=== PATIENT | male | born 1955 | race American Indian/Alaskan Native ===

== ENCOUNTER 2020-06-04 20:34 | Inpatient (IN) | payer MEDICAID ==
[2020-06-04 21:52] LABS: Basophils % (Auto) 0.3 % (0.0-1.8); Hemoglobin 16.6 gm/dl (11.8-15.2); Lymphocytes # (Auto) 0.7 K/mm3 (1.2-5.4); Lymphocytes % (Auto) 5.7 % (13.4-35.0); Mean Corpuscular HGB Conc 34 % (32-34); Mean Corpuscular Volume 91 fl (84-94); Monocytes # (Auto) 0.9 K/mm3 (0.0-0.8); Platelet Count 187 K/mm3 (140-440); Red Blood Count 5.41 M/mm3 (3.65-5.03); Red Cell Distribution Width 14.4 % (13.2-15.2)
[2020-06-04 22:05] LABS: Alanine Aminotransferase 15 units/L (7-56); Albumin 4.1 g/dL (3.9-5); BUN/Creatinine Ratio 12; Blood Urea Nitrogen 14 mg/dL (9-20); Calcium 9.8 mg/dL (8.4-10.2); Hemolysis Index 9
[2020-06-04] MEDS ORDERED: MORPHINE 4 MG/1 ML INJ IV ONE (23:21)
[2020-06-04] MEDS ORDERED: ONDANSETRON 4 MG/2 ML INJ IV ONE (23:21)
--- NOTE | 2020-06-04 23:36 | Emergency Department Report ---
HPI - General Chief Complaint: Abdominal Pain Time Seen by Provider: 06/04/20 22:53 - HPI HPI: 64-year-old male presents to the emergency department via EMS from home with complaint of a 1 day history of right lower quadrant abdominal pain with nausea and vomiting. He has a past medical history of CHF, CVA, hypertension and pulmonary embolism on anticoagulation, Xarelto. Patient took some Tylenol for his symptoms with some transient relief. Patient's abdominal pain worsens when he is going from sitting to standing or when he exerts himself. He denies any fever, diarrhea, constipation, dysuria. No recent travel or sick contacts at home. His primary care physician is a Dr. Cordova at [place]. ED Past Medical Hx - Past Medical History Previous Medical History?: Yes Hx Hypertension: Yes Hx CVA: Yes Hx Congestive Heart Failure: Yes Hx Diabetes: No Additional medical history: Pulmonary Embolism - Surgical History Past Surgical History?: Yes Hx Internal Defibrillator: Yes - Social History Smoking Status: Current Every Day Smoker Substance Use Type: None - Medications Home Medications: Home Medications Medication Instructions Recorded Confirmed Last Taken Type Aspirin [Aspirin BABY CHEW TAB] 81 mg PO QDAY #30 tab.chew 09/14/14 09/29/14 09/28/14 Rx Furosemide [Lasix TAB] 20 mg PO QDAY #30 tablet 09/14/14 09/29/14 09/28/14 Rx carvediloL [Coreg] 3.125 mg PO BID #60 tablet 09/14/14 09/29/14 09/28/14 Rx lisinopriL [Zestril TAB] 2.5 mg PO QDAY #30 tablet 09/14/14 09/29/14 09/28/14 Rx Furosemide [Lasix] 40 mg PO DAILY #60 tablet 09/29/14 Unknown Rx HYDROcodone/APAP 5-325 [[place] 1 each PO Q6HR PRN #20 tablet 10/10/14 Unknown Rx 5-325 mg TAB] Omeprazole [PriLOSEC] 20 mg PO BID #30 cap 10/10/14 Unknown Rx Promethazine [Phenergan] 25 mg PO Q6H PRN #20 tablet 10/10/14 Unknown Rx ED Review of Systems ROS: Stated complaint: ABDOMINAL PAIN Other details as noted in HPI Comment: All other systems reviewed and negative Constitutional: denies: chills, fever Eyes: denies: eye pain, vision change ENT: denies: ear pain, throat pain Respiratory: denies: cough, wheezing Cardiovascular: denies: chest pain, palpitations Gastrointestinal: abdominal pain, nausea, vomiting Genitourinary: denies: dysuria, discharge Musculoskeletal: denies: back pain, arthralgia Skin: denies: rash, lesions Neurological: denies: headache, weakness Physical Exam - Physical Exam Vital Signs: Vital Signs 06/04/20 21:16 Temperature 99.9 F H Pulse Rate 116 H Respiratory 22 Rate Blood Pressure 164/105 O2 Sat by Pulse 93 Oximetry Physical Exam: GENERAL: The patient is well-developed well-nourished. HENT: Normocephalic. Atraumatic. Patient has moist mucous membranes. EYES: Extraocular motions are intact. NECK: Supple. Trachea is midline. CHEST/LUNGS: Clear to auscultation. There is no respiratory distress noted. HEART/CARDIOVASCULAR: Regular. There is no tachycardia. There is no murmur. ABDOMEN: Abdomen is soft. Right lower quadrant abdominal tenderness to palpation. No guarding. Patient has normal bowel sounds. SKIN: Skin is warm and dry. NEURO: The patient is awake, alert, and oriented. The patient is cooperative. Normal speech. MUSCULOSKELETAL: There is no tenderness or deformity. ED Course Vital Signs 06/04/20 21:16 Temperature 99.9 F H Pulse Rate 116 H Respiratory 22 Rate Blood Pressure 164/105 O2 Sat by Pulse 93 Oximetry - Reevaluation(s) Reevaluation #1: 06/05/20 01:10 Lab Results 06/04/20 06/04/20 Range/Units 21:35 21:35 WBC 12.9 H (4.5-11.0) K/mm3 RBC 5.41 H (3.65-5.03) M/mm3 Hgb 16.6 H (11.8-15.2) gm/dl Hct 49.0 H (35.5-45.6) % MCV 91 (84-94) fl MCH 31 (28-32) pg MCHC 34 (32-34) % RDW 14.4 (13.2-15.2) % Plt Count 187 (140-440) K/mm3 Lymph % (Auto) 5.7 L (13.4-35.0) % [place] % (Auto) 7.0 (0.0-7.3) % Eos % (Auto) 0.0 (0.0-4.3) % Baso % (Auto) 0.3 (0.0-1.8) % Lymph # (Auto) 0.7 L (1.2-5.4) K/mm3 [place] # (Auto) 0.9 H (0.0-0.8) K/mm3 Eos # (Auto) 0.0 (0.0-0.4) K/mm3 Baso # (Auto) 0.0 (0.0-0.1) K/mm3 Seg Neutrophils % 87.0 H (40.0-70.0) % Seg Neutrophils # 11.2 H (1.8-7.7) K/mm3 Sodium 135 L (137-145) mmol/L Potassium 4.0 (3.6-5.0) mmol/L Chloride 95.3 L (98-107) mmol/L Carbon Dioxide 29 (22-30) mmol/L Anion Gap 15 mmol/L BUN 14 (9-20) mg/dL Creatinine 1.2 (0.8-1.3) mg/dL Estimated GFR > 60 ml/min BUN/Creatinine Ratio 12 % Glucose 118 H (75-100) mg/dL Calcium 9.8 (8.4-10.2) mg/dL Total Bilirubin 1.10 (0.1-1.2) mg/dL AST 12 (5-40) units/L ALT 15 (7-56) units/L Alkaline Phosphatase 81 (35-129) units/L Total Protein 7.9 (6.3-8.2) g/dL Albumin 4.1 (3.9-5) g/dL Albumin/Globulin Ratio 1.1 % Lipase 16 (13-60) units/L - Consultations Consultation #1: 06/05/20 01:10 I spoke with the general surgeon on-call, Dr. Muñoz, regarding the CT findings of acute appendicitis with signs of mild perforation. We discussed the patient's presentation, labs, vital signs. She has recommended IV fluid resuscitation, antibiotics, and she will see the patient in the morning as a consult. ED Medical Decision Making - Lab Data Result diagrams: 06/04/20 21:35 06/04/20 21:35 - Radiology Data Radiology results: report reviewed CT abdomen pelvis w con INDICATION: RLQ abd pain. TECHNIQUE: All CT scans at this location are performed using the following dose modulation technique: Automated exposure control. Helical slices were obtained through the abdomen and pelvis. 100 cc of Omnipaque 300 is administered. COMPARISON: CT scan dated 10/10/2014 FINDINGS: Abdomen: There is mild atelectasis in the lung bases. The liver, spleen, pancreas, adrenal glands, and left kidney show no acute abnormality. There is a 1.8 cm hypodensity in the upper pole the right kidney. This measures approximately 20 Hounsfield units. There is acute appendicitis. The appendix is inflamed and there is significant periappendiceal inflammation. There is evidence of perforation with a few bubbles of extraluminal gas in the right lower quadrant. There appears to be some secondary inflammation of the distal small bowel. There is fluid noted in the distal small bowel but no discrete obstruction is seen. There is a saccular aneurysm in the infrarenal abdominal aorta. The overall aortic diameter measures up to 3.4 cm. Saccular component measures approximately 2 cm. There is atherosclerotic disease in the aorta and iliac arteries. Pelvis: There are fluid-filled loops of small bowel in the pelvis. There is a small amount of free fluid in the dependent pelvis. This measures above water density. On review of bone windows, no acute osseous abnormalities are seen. IMPRESSION: 1. There is acute perforated appendicitis. No discrete abscess is seen. There is significant inflammation in the right lower quadrant and there are a few bubbles of extraluminal gas in the right lower quadrant. There is a small amount of free fluid in the dependent portion of the pelvis. This measures above water density indicating this represents either blood or other complex fluid. There is a saccular infrarenal abdominal aortic aneurysm. There is a 1.8 cm hypodensity in the right kidney which hugh ures above water density. This could be further evaluated with a nonemergent renal ultrasound. - Medical Decision Making This patient presents with a 1 day history of right lower quadrant abdominal pain, nausea and vomiting. Labs are mostly unremarkable except for a very mild leukocytosis. Patient has a low-grade fever of about 100 F and presents with some mild tachycardia. A CT scan of the abdomen pelvis with IV contrast was done that came back showing acute appendicitis with some mild perforation. There is also some nonspecific small bowel inflammation and fluid within the small bowel, as well as some fluid within the pelvis. General surgery was contacted and consulted. The patient has received IV analgesia, IV antibiotics, IV antiemetics and some IV fluid resuscitation. He will be admitted to the hospital for further evaluation and treatment and has been accepted for admission by the hospitalist, Dr. Todd. - Differential Diagnosis Appendicitis, diverticulitis, colitis, bowel obstruction Critical Care Time: Yes Critical care time in (mins) excluding proc time.: 35 Critical care attestation.: If time is entered above; I have spent that time in minutes in the direct care of this critically ill patient, excluding procedure time. Critical care time was spent on this patient during his initial evaluation, multiple reevaluations, ordering and interpretation of labs and imaging, discussion with the general surgery and hospitalist services, multiple discussions with the patient. Critical Care Time: 35 minutes ED Disposition Clinical Impression: Hypertension Acute appendicitis Qualifiers: Acute appendicitis type: with localized peritonitis Appendicitis gangrene presence: without gangrene Appendicitis perforation presence: with perforation Appendicitis abscess presence: without abscess Qualified Code(s): K35.32 - Acute appendicitis with perforation and localized peritonitis, without abscess Disposition: 09 OP ADMIT IP TO THIS HOSP Is pt being admited?: Yes Condition: Serious Time of Disposition: 00:38
--- NOTE | 2020-06-05 00:05 | Cat Scan Report ---
CT abdomen pelvis w con INDICATION: RLQ abd pain. TECHNIQUE: All CT scans at this location are performed using the following dose modulation technique: Automated exposure control. Helical slices were obtained through the abdomen and pelvis. 100 cc of Omnipaque 30 0 is administered. COMPARISON: CT scan dated 10/10/2014 FINDINGS: Abdomen: There is mild atelectasis in the lung bases. The liver, spleen, pancreas, adrenal glands, an d left kidney show no acute abnormality. There is a 1.8 cm hypodensity in the upper pole the right ki dney. This measures approximately 20 Hounsfield units. There is acute appendicitis. The appendix is inflamed and there is significant periappendiceal inflam mation. There is evidence of perforation with a few bubbles of extraluminal gas in the right lower qu adrant. There appears to be some secondary inflammation of the distal small bowel. There is fluid not ed in the distal small bowel but no discrete obstruction is seen. There is a saccular aneurysm in the infrarenal abdominal aorta. The overall aortic diameter measures up to 3.4 cm. Saccular component measures approximately 2 cm. There is atherosclerotic disease in the aorta and iliac arteries. Pelvis: There are fluid-filled loops of small bowel in the pelvis. There is a small amount of free fl uid in the dependent pelvis. This measures above water density. On review of bone windows, no acute osseous abnormalities are seen. IMPRESSION: 1. There is acute perforated appendicitis. No discrete abscess is seen. There is significant inflamma tion in the right lower quadrant and there are a few bubbles of extraluminal gas in the right lower q uadrant. There is a small amount of free fluid in the dependent portion of the pelvis. This measures above adolfo er density indicating this represents either blood or other complex fluid. There is a saccular infrarenal abdominal aortic aneurysm. There is a 1.8 cm hypodensity in the right kidney which measures above water density. This could be f urther evaluated with a nonemergent renal ultrasound. Signer Name: Seamus Heredia MD Signed: 06/05/2020 12:01 AM Workstation Name: [id number]
[2020-06-05] MEDS ORDERED: PIPERACIL/TAZOBACTA 4.5/NS 100 4.5 GM/100 ML VIAL IV ONE ×2 (00:15→01:11)
[2020-06-05] MEDS ORDERED: metroNIDAZOLE/NS 500 MG/100 ML 500 MG/100 ML BAG IV ONE ×2 (00:15→01:11)
[2020-06-05] MEDS ORDERED: SODIUM CHLORIDE 0.9% 1000 ML 1,000 ML IV ONE (00:26)
[2020-06-05] MEDS ORDERED: SODIUM CHLORIDE 0.9% 1000 ML 1,000 ML ONE (01:11)
--- NOTE | 2020-06-05 01:23 | History and Physical Report ---
History of Present Illness Date of examination: 06/05/20 Date of admission: 06/05/20 00:38 Chief complaint: Abdominal pain Nausea and vomiting History of present illness: 64-year-old male with known history of CHF, hypertension, history of pulmonary embolism and CVA in the past presented to the emergency room today complaining of abdominal pain with associated nausea and vomiting. Symptoms were said to have started within the last 24 hours. Abdominal pain is more in the right lower abdomen. Abdominal pain is said to get worse upon exertion or while standing. He took some acetaminophen without any significant relief. Patient denies any fever or chills, no chest pain or shortness of breath, no diarrhea or constipation, no hematuria or dysuria. Evaluation upon arrival in the emergency room today reveals acute perforated appendicitis on the CT scan of the abdomen and pelvis. General surgeon Dr. Muñoz has been consulted for evaluation. Patient has also been started on empiric IV antibiotics. Past History Past Medical History: heart failure, hypertension, pulmonary embolism, stroke Past Surgical History: Other (Defibrillator Placement) Social history: smoking (Current daily smoker) Family history: no significant family history Medications and Allergies Allergies Allergy/AdvReac Type Severity Reaction Status Date / Time No Known Allergies Allergy Verified 09/11/14 03:17 Home Medications Medication Instructions Recorded Confirmed Last Taken Type Aspirin [Aspirin BABY CHEW TAB] 81 mg PO QDAY #30 tab.chew 09/14/14 09/29/14 09/28/14 Rx Furosemide [Lasix TAB] 20 mg PO QDAY #30 tablet 09/14/14 09/29/14 09/28/14 Rx carvediloL [Coreg] 3.125 mg PO BID #60 tablet 09/14/14 09/29/14 09/28/14 Rx lisinopriL [Zestril TAB] 2.5 mg PO QDAY #30 tablet 09/14/14 09/29/14 09/28/14 Rx Furosemide [Lasix] 40 mg PO DAILY #60 tablet 09/29/14 Unknown Rx HYDROcodone/APAP 5-325 [[place] 1 each PO Q6HR PRN #20 tablet 10/10/14 Unknown Rx 5-325 mg TAB] Omeprazole [PriLOSEC] 20 mg PO BID #30 cap 10/10/14 Unknown Rx Promethazine [Phenergan] 25 mg PO Q6H PRN #20 tablet 10/10/14 Unknown Rx Active Meds: Active Medications Acetaminophen (Tylenol) 650 mg PO Q4H PRN PRN Reason: Pain MILD(1-3)/Fever >100.5/LOPEZ Sodium Chloride (Nacl 0.9% 1000 Ml) 1,000 mls @ 125 mls/hr IV ONCE ONE Stop: 06/05/20 08:25 Last Admin: 06/05/20 01:15 Dose: 125 mls/hr Documented by: Sodium Chloride (Nacl 0.9% 1000 Ml) 1,000 mls @ 75 mls/hr IV DIRECT BART Morphine Sulfate (Morphine) 2 mg IV Q4H PRN PRN Reason: Pain, Moderate (4-6) Ondansetron HCl (Zofran) 4 mg IV Q8H PRN PRN Reason: Nausea And Vomiting Sodium Chloride (Sodium Chloride Flush Syringe 10 Ml) 10 ml IV BID BART Sodium Chloride (Sodium Chloride Flush Syringe 10 Ml) 10 ml IV PRN PRN PRN Reason: LINE FLUSH Review of Systems Constitutional: no fever, no chills Ears, nose, mouth and throat: no nasal congestion, no sore throat Cardiovascular: no chest pain, no palpitations Respiratory: no cough, no shortness of breath Gastrointestinal: abdominal pain, nausea, vomiting, no hematemesis, no BRBPR, no melena Genitourinary Male: no dysuria, no hematuria, no nocturia Musculoskeletal: no neck pain, no low back pain Integumentary: no rash, no pruritis Neurological: no headaches, no confusion Psychiatric: no anxiety, no depression Exam - Constitutional Vitals: Temp Pulse Resp BP Pulse Ox 98.8 F 111 H 17 169/91 97 06/04/20 23:20 06/05/20 00:31 06/05/20 00:31 06/05/20 00:31 06/05/20 00:31 General appearance: Present: no acute distress, well-nourished - EENT Eyes: Present: PERRL, EOM intact. Absent: scleral icterus ENT: hearing intact, clear oral mucosa, dentition normal - Neck Neck: Present: supple, normal ROM - Respiratory Respiratory effort: normal Respiratory: bilateral: CTA - Cardiovascular Rhythm: regular Heart Sounds: Present: S1 & S2. Absent: gallop, systolic murmur, diastolic murmur, rub - Extremities Extremities: no ischemia, pulses intact, pulses symmetrical, No edema, Full ROM Peripheral Pulses: within normal limits - Abdominal General gastrointestinal: Present: soft, tender (Right lower quadrant, no rebound tenderness, No guarding), non-distended, normal bowel sounds. Absent: mass - Integumentary Integumentary: Present: clear, warm, dry - Musculoskeletal Musculoskeletal: strength equal bilaterally - Psychiatric Psychiatric: appropriate mood/affect, intact judgment & insight, memory intact, cooperative - Neurologic Neurologic: CNII-XII intact, no focal deficits, moves all extremities Results - Labs CBC & Chem 7: 06/04/20 21:35 06/04/20 21:35 Labs: Abnormal lab results 06/04/20 06/04/20 Range/Units 21:35 21:35 WBC 12.9 H (4.5-11.0) K/mm3 RBC 5.41 H (3.65-5.03) M/mm3 Hgb 16.6 H (11.8-15.2) gm/dl Hct 49.0 H (35.5-45.6) % Lymph % (Auto) 5.7 L (13.4-35.0) % Lymph # (Auto) 0.7 L (1.2-5.4) K/mm3 [place] # (Auto) 0.9 H (0.0-0.8) K/mm3 Seg Neutrophils % 87.0 H (40.0-70.0) % Seg Neutrophils # 11.2 H (1.8-7.7) K/mm3 Sodium 135 L (137-145) mmol/L Chloride 95.3 L (98-107) mmol/L Glucose 118 H (75-100) mg/dL Assessment and Plan - Patient Problems (1) Acute appendicitis Current Visit: Yes Status: Acute Qualifiers: Acute appendicitis type: with localized peritonitis Appendicitis gangrene presence: without gangrene Appendicitis perforation presence: with perforation Appendicitis abscess presence: without abscess Qualified Code(s): K35.32 - Acute appendicitis with perforation and localized peritonitis, without abscess Plan to address problem: Patient made n.p.o. He has been started on empiric IV antibiotics, IV fluid and IV analgesic medication. (2) Hypertension Current Visit: Yes Status: Acute Plan to address problem: We will place patient on IV antihypertensive medication as needed. We will monitor vital signs closely. (3) Tobacco use Current Visit: No Status: Chronic Plan to address problem: Patient counseled on quitting tobacco abuse. We offer nicotine patch as needed. (4) DVT prophylaxis Current Visit: Yes Status: Acute Plan to address problem: Patient placed on sequential compression device. (5) Full code status Current Visit: Yes Status: Acute
[2020-06-05 02:18] LABS: Bilirubin,Urine NEG (Negative); Blood,Urine MOD (Negative); Color,Urine Yellow (Yellow); Mucus,Urine 1+ /HPF
[2020-06-05] MEDS: SODIUM CHLORIDE 0.9% 1000 ML 1,000 ML IV SCH ×2 (04:34→14:18)
[2020-06-05] MEDS: ACETAMINOPHEN 325 MG TAB PO PRN ×2 (05:49→22:09)
--- NOTE | 2020-06-05 10:05 | Progress Note ---
Assessment and Plan - Patient Problems (1) Acute appendicitis Current Visit: Yes Status: Acute Qualifiers: Acute appendicitis type: with localized peritonitis Appendicitis gangrene presence: without gangrene Appendicitis perforation presence: with perforation Appendicitis abscess presence: without abscess Qualified Code(s): K35.32 - Acute appendicitis with perforation and localized peritonitis, without abscess Plan to address problem: Patient made n.p.o. CT findings of acute appendicitis with signs of mild perforation. Continue empiric IV antibiotics, IV fluid and IV analgesic medication. general surgeon Dr. Muñoz consulted (2) Hypertension Current Visit: Yes Status: Acute Plan to address problem: Monitor blood pressure IV antihypertensive medication as needed. (3) Tobacco use Current Visit: No Status: Chronic Plan to address problem: Patient counseled on quitting tobacco abuse. nicotine patch daily. (4) DVT prophylaxis Current Visit: Yes Status: Acute Plan to address problem: Patient placed on sequential compression device. 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 he report right lower quadrant pain 9/10. He also admit tobacco use 1/ park every 2 days for over 50 years reviewed lab, mar, and v/s. reviewed specialist note and reces-surgery tomorrow Objective - Constitutional Vitals: Vital Signs - 12hr 06/04/20 06/04/20 06/05/20 23:20 23:57 00:01 Temperature 98.8 F Pulse Rate 116 H 108 H Respiratory 18 18 16 Rate Blood Pressure 163/90 Blood Pressure 148/93 [Left] Blood Pressure [Right] O2 Sat by Pulse 96 98 Oximetry 06/05/20 06/05/20 06/05/20 00:15 00:27 00:31 Temperature Pulse Rate 108 H 111 H Respiratory 23 18 17 Rate Blood Pressure 152/94 169/91 Blood Pressure [Left] Blood Pressure [Right] O2 Sat by Pulse 96 97 Oximetry 06/05/20 06/05/20 06/05/20 01:31 01:41 01:51 Temperature Pulse Rate 113 H 109 H 118 H Respiratory 28 H 36 H 21 Rate Blood Pressure 143/81 145/79 145/79 Blood Pressure [Left] Blood Pressure [Right] O2 Sat by Pulse 96 94 85 Oximetry 06/05/20 06/05/20 06/05/20 02:01 02:11 02:33 Temperature 99.1 F Pulse Rate 109 H 110 H 107 H Respiratory 30 H 10 L 20 Rate Blood Pressure 133/71 139/75 Blood Pressure [Left] Blood Pressure 137/81 [Right] O2 Sat by Pulse 78 L 79 L 100 Oximetry 06/05/20 06/05/20 06/05/20 03:45 05:32 05:49 Temperature 100.2 F H Pulse Rate 105 H Respiratory 20 20 20 Rate Blood Pressure Blood Pressure [Left] Blood Pressure 117/82 [Right] O2 Sat by Pulse 95 Oximetry 06/05/20 07:42 Temperature 99.1 F Pulse Rate 115 H Respiratory 18 Rate Blood Pressure 116/76 Blood Pressure [Left] Blood Pressure [Right] O2 Sat by Pulse 92 Oximetry - Labs CBC & Chem 7: 06/04/20 21:35 06/04/20 21:35 Labs: Abnormal lab results 06/04/20 06/04/20 06/05/20 Range/Units 21:35 21:35 02:00 WBC 12.9 H (4.5-11.0) K/mm3 RBC 5.41 H (3.65-5.03) M/mm3 Hgb 16.6 H (11.8-15.2) gm/dl Hct 49.0 H (35.5-45.6) % Lymph % (Auto) 5.7 L (13.4-35.0) % Lymph # (Auto) 0.7 L (1.2-5.4) K/mm3 [place] # (Auto) 0.9 H (0.0-0.8) K/mm3 Seg Neutrophils % 87.0 H (40.0-70.0) % Seg Neutrophils # 11.2 H (1.8-7.7) K/mm3 Sodium 135 L (137-145) mmol/L Chloride 95.3 L (98-107) mmol/L Glucose 118 H (75-100) mg/dL Ur Specific [place] > 1.059 H (1.003-1.030)
--- NOTE | 2020-06-05 10:24 | Consultation ---
History of Present Illness Consult date: 06/05/20 Reason for consult: abdominal pain Chief complaint: Abdominal pain - History of present illness History of present illness: 64-year-old male with past medical history of hypertension, CHF, recent diagnosi s of PE 3 months ago on Xarelto who presents to the emergency room with 2 days of right lower quadrant abdominal pain. The pain started suddenly and then increased in severity. The pain is sharp and does not radiate. Patient admits to nausea and vomiting, which is since resolved. He denies fevers at home but did have Tm of 100.2 after being admitted to the hospital. He has had similar pain in the past which he attributes to his back but this usually resolves on its own. No sick contacts. No inciting events. He states he had a follow-up appointment at [place] yesterday to repeat lab work and determine how long he would be on Xarelto. Due to the abdominal pain he was unable to make that appointment. His last dose of Xarelto was yesterday morning. He is feeling slightly better now. He states the pain is made better with pain medications. He is asking for something to eat or drink. Past History Past Medical History: heart failure, hypertension, pulmonary embolism, stroke Past Surgical History: Other (Defibrillator Placement) Social history: smoking (Current daily smoker) Family history: no significant family history Medications and Allergies Allergies Allergy/AdvReac Type Severity Reaction Status Date / Time No Known Allergies Allergy Verified 09/11/14 03:17 Home Medications Medication Instructions Recorded Confirmed Last Taken Type Aspirin [Aspirin BABY CHEW TAB] 81 mg PO QDAY #30 tab.chew 09/14/14 09/29/14 09/28/14 Rx Furosemide [Lasix TAB] 20 mg PO QDAY #30 tablet 09/14/14 09/29/14 09/28/14 Rx carvediloL [Coreg] 3.125 mg PO BID #60 tablet 09/14/14 09/29/14 09/28/14 Rx lisinopriL [Zestril TAB] 2.5 mg PO QDAY #30 tablet 09/14/14 09/29/14 09/28/14 Rx Furosemide [Lasix] 40 mg PO DAILY #60 tablet 09/29/14 Unknown Rx HYDROcodone/APAP 5-325 [[place]man 1 each PO Q6HR PRN #20 tablet 10/10/14 Unknown Rx 5-325 mg TAB] Omeprazole [PriLOSEC] 20 mg PO BID #30 cap 10/10/14 Unknown Rx Promethazine [Phenergan] 25 mg PO Q6H PRN #20 tablet 10/10/14 Unknown Rx Active Meds: Active Medications Acetaminophen (Tylenol) 650 mg PO Q4H PRN PRN Reason: Pain MILD(1-3)/Fever >100.5/LOPEZ Last Admin: 06/05/20 05:49 Dose: 650 mg Documented by: Sodium Chloride (Nacl 0.9% 1000 Ml) 1,000 mls @ 75 mls/hr IV DIRECT BART Last Admin: 06/05/20 04:34 Dose: 75 mls/hr Documented by: Piperacillin Sod/Tazobactam Sod (Zosyn/Ns 4.5gm/100ml) 4.5 gm in 100 mls @ 200 mls/hr IV Q8HR BART; Protocol Metronidazole (Flagyl 500 Mg/100 Ml) 500 mg in 100 mls @ 100 mls/hr IV Q8HR BART; Protocol Stop: 06/06/20 13:59 Morphine Sulfate (Morphine) 2 mg IV Q4H PRN PRN Reason: Pain, Moderate (4-6) Ondansetron HCl (Zofran) 4 mg IV Q8H PRN PRN Reason: Nausea And Vomiting Sodium Chloride (Sodium Chloride Flush Syringe 10 Ml) 10 ml IV BID BART Sodium Chloride (Sodium Chloride Flush Syringe 10 Ml) 10 ml IV PRN PRN PRN Reason: LINE FLUSH Review of Systems All systems: negative (10 point ROS performed and negative except for that listed in HPI) Exam Vital Signs Temp Pulse Resp BP Pulse Ox 99.9 F H 116 H 22 164/105 93 06/04/20 21:16 06/04/20 21:16 06/04/20 21:16 06/04/20 21:16 06/04/20 21:16 Narrative exam: Gen.: Awake, alert, oriented 3. Mild distress due to abdominal pain ENT: Trachea midline. No lymphadenopathy. No scleral icterus or conjunctival pallor CV: S1, S2 present. Left-sided AICD Respiratory: No audible wheezes Abdomen: Soft, nondistended, mild tenderness to palpation of the right lower quadrant. No rebound, rigidity, guarding Extremities: No clubbing, cyanosis, edema Results - Labs 06/04/20 21:35 06/04/20 21:35 Abnormal lab results 06/04/20 06/04/20 06/05/20 Range/Units 21:35 21:35 02:00 WBC 12.9 H (4.5-11.0) K/mm3 RBC 5.41 H (3.65-5.03) M/mm3 Hgb 16.6 H (11.8-15.2) gm/dl Hct 49.0 H (35.5-45.6) % Lymph % (Auto) 5.7 L (13.4-35.0) % Lymph # (Auto) 0.7 L (1.2-5.4) K/mm3 Mobile # (Auto) 0.9 H (0.0-0.8) K/mm3 Seg Neutrophils % 87.0 H (40.0-70.0) % Seg Neutrophils # 11.2 H (1.8-7.7) K/mm3 Sodium 135 L (137-145) mmol/L Chloride 95.3 L (98-107) mmol/L Glucose 118 H (75-100) mg/dL Ur Specific [place] > 1.059 H (1.003-1.030) Diabetes panel 06/04/20 Range/Units 21:35 Sodium 135 L (137-145) mmol/L Potassium 4.0 (3.6-5.0) mmol/L Chloride 95.3 L (98-107) mmol/L Carbon Dioxide 29 (22-30) mmol/L BUN 14 (9-20) mg/dL Creatinine 1.2 (0.8-1.3) mg/dL Glucose 118 H (75-100) mg/dL Calcium 9.8 (8.4-10.2) mg/dL AST 12 (5-40) units/L ALT 15 (7-56) units/L Alkaline Phosphatase 81 (35-129) units/L Total Protein 7.9 (6.3-8.2) g/dL Albumin 4.1 (3.9-5) g/dL Calcium panel 06/04/20 Range/Units 21:35 Calcium 9.8 (8.4-10.2) mg/dL Albumin 4.1 (3.9-5) g/dL Pituitary panel 06/04/20 Range/Units 21:35 Sodium 135 L (137-145) mmol/L Potassium 4.0 (3.6-5.0) mmol/L Chloride 95.3 L (98-107) mmol/L Carbon Dioxide 29 (22-30) mmol/L BUN 14 (9-20) mg/dL Creatinine 1.2 (0.8-1.3) mg/dL Glucose 118 H (75-100) mg/dL Calcium 9.8 (8.4-10.2) mg/dL Adrenal panel 06/04/20 Range/Units 21:35 Sodium 135 L (137-145) mmol/L Potassium 4.0 (3.6-5.0) mmol/L Chloride 95.3 L (98-107) mmol/L Carbon Dioxide 29 (22-30) mmol/L BUN 14 (9-20) mg/dL Creatinine 1.2 (0.8-1.3) mg/dL Glucose 118 H (75-100) mg/dL Calcium 9.8 (8.4-10.2) mg/dL Total Bilirubin 1.10 (0.1-1.2) mg/dL AST 12 (5-40) units/L ALT 15 (7-56) units/L Alkaline Phosphatase 81 (35-129) units/L Total Protein 7.9 (6.3-8.2) g/dL Albumin 4.1 (3.9-5) g/dL - Imaging CT scan - abdomen: report reviewed, image reviewed CT scan - pelvis: report reviewed, image reviewed Assessment and Plan 64-year-old male with 1. acute appendicitis, without abscess CT scan reviewed -acute appendicitis with likely microperforation but no evidence of abscess. Likely developing ileus. Pt hemodynamically stable. Plan: 1. Hold xaretlo -last dose was 24 hours ago. I highly recommend holding for another 24 hours to decrease the patient's risk of bleeding during surgery. 2. May have sips of clears today, n.p.o. past midnight tonight 3. Recommend cardiology consult 4. Continue IV antibiotics 5. PRN pain and nausea control 6. DVT prophylaxis 7. I have discussed appendectomy with the patient. All risk, benefits, alternatives to surgery were discussed. I also discussed the high risk of bleeding during and after surgery due to the effects of Xarelto. I explained to the patient there is no reversal agent available to us at this facility and that I recommend waiting another 24 hours prior to proceeding with surgery. He is agreeable and understands. All questions were answered. Consent obtained for laparoscopic appendectomy, possible open, possible colon resection. Will add to the OR schedule for tomorrow. I spoke with the patient's daughter Yashira and sister Angelina at his request over the telephone. I explained the diagnosis along with my recommendations to them. They understand and all questions were answered. Thank you for this consultation. Please call with any questions or concerns. Evaluation and treatment of this patient was during the time of the national and state emergency arising from COVID19 coronavirus pandemic. Treatment and procedures performed meet the current and available best practice and guidelines for patient during the COVID pandemic.
[2020-06-05] MEDS: MORPHINE 2 MG/1 ML INJ IV PRN ×4 (10:30→22:11)
[2020-06-05] MEDS: ONDANSETRON 4 MG/2 ML INJ IV PRN ×3 (10:30→22:11)
--- NOTE | 2020-06-05 10:39 | Anesthesia Consultation ---
Anesthesia Consult and Med Hx Date of service: 06/05/20 - Airway Anesthetic Teeth Evaluation: Edentulous ROM Head & Neck: Adequate Mental/Hyoid Distance: Adequate Mallampati Class: Class II Intubation Access Assessment: Probably Good - Pulmonary Exam CTA: Yes - Pre-Operative Health Status ASA Pre-Surgery Classification: ASA3, Emergency Proposed Anesthetic Plan: General - Pulmonary Hx Smoking: Yes (Half a pack a day (from 1ppd)) Hx Respiratory Symptoms: No SOB: No COPD: No Home Oxygen Therapy: No Hx Pneumonia: Yes Hx Sleep Apnea: No - Cardiovascular System Hx Hypertension: Yes Hx Heart Attack/AMI: No Hx Angina: No Hx Internal Defibrillator: Yes - Central Nervous System Hx Seizures: No CVA: Yes (2017) Hx Psychiatric Problems: No - Gastrointestinal Hx Ulcer: No Hx Gastroesophageal Reflux Disease: No - Endocrine Hx Renal Disease: No Hx Liver Disease: No Hx Insulin Dependent Diabetes: No Hx Non-Insulin Dependent Diabetes: No Hx Thyroid Disease: No - Hematic Hx Anemia: No - Other Systems Hx Alcohol Use: No Hx Substance Use: No Hx Cancer: No Hx Obesity: Yes (BMI- 34.3kg) - Additional Comments Anesthesia Medical History Comments: Patient denied previous anesthesia complications and labs within normal range.
[2020-06-05] MEDS: LISINOPRIL 10 MG TAB PO SCH (14:11)
[2020-06-05] MEDS: PIPERACIL/TAZOBACTA 4.5/NS 100 4.5 GM/100 ML VIAL IV SCH ×2 (14:11→22:23)
--- NOTE | 2020-06-05 14:32 | Consultation ---
CARDIOLOGY CONSULTATION HISTORY OF PRESENT ILLNESS: The patient is a 64-year-old, -[place] gentleman who presented to the Emergency Room at [facility] on 06/04/2020 because of right lower quadrant abdominal pain. He is having complaints of loss of appetite and nausea and vomiting of few days' duration. He had sudden onset of pain, was evaluated in the Emergency Room and a diagnosis of possible acute appendicitis with localized peritonitis was done. The patient was seen by Dr. Muñoz, diagnosis was acute appendicitis without abscess and she is planning to do surgery on 06/06/2020. The patient's past medical history is significant for history of stroke 4 years ago with right-sided weakness, which got better. At the same time, he was diagnosed to have essential hypertension. Subsequently, he is being followed by phonograph mechanic at [facility] with a diagnosis of congestive heart failure and he had ICD inserted a few years ago. Denies any history of diabetes mellitus. Also, gives history of having a pulmonary embolus 3 months ago, was started on Xarelto. The patient denies any history of myocardial infarction in the past. Presently, denies any chest pain. He claims that he walks 4-5 miles every day without any problems. He is taking his medications without any problems. Denies any orthopnea, no leg swelling. No chest pain. MEDICATIONS: At home included aspirin 81 mg a day, furosemide 20 mg a day, carvedilol 3.125 mg b.i.d., lisinopril 2.5 mg once a day, furosemide 40 mg a day. In addition, he is taking Prilosec and Phenergan. ALLERGIES: None known. REVIEW OF SYSTEMS: As mentioned above, denies any leg swelling, no orthopnea, no PND. He is having loss of appetite and abdominal pain of few days' duration, has some nausea. He is taking his medications including Xarelto. No unusual headaches. No history of asthma. As mentioned above, has history of pulmonary emboli a few months ago, presently on Xarelto. He says he had fever just last night. PHYSICAL EXAMINATION: GENERAL: The patient appears to be comfortable, well-developed, well-nourished. HEENT: Conjunctivae pink. Sclerae anicteric. NECK: Supple. HEART: Regular, probably S4, no S3, no significant murmurs. LUNGS: Clear. ABDOMEN: Tender. EXTREMITIES: Without edema. NEUROLOGIC: Alert and oriented x 3. CHEST: The patient has ICD in his chest. LABORATORY DATA: Other laboratory data showed potassium of 4.0, BUN of 14, creatinine of 1.2, hemoglobin of 16.6 g/dL, hematocrit of 49%. Telemetry rhythm showed sinus rhythm. We do not have the EKG. FINAL IMPRESSION: 1. Acute appendicitis without abscess. 2. History of congestive heart failure, history of ICD placement. 3. History of pulmonary emboli, on Xarelto. 4. History of hypertension. 5. History of right-sided weakness 3-4 years ago, presently resolved. PLAN: Presently, cardiac morales appears to be stable. No symptoms of fluid overload. No anginal symptoms. Considering that he appears to be cardiac morales stable, we will get an echocardiogram for LV function in addition to an EKG. We will try to get the records from [facility]. However, he appears to be stable. He can proceed with the surgery in the morning. I resumed his carvedilol and lisinopril. We will hold his furosemide considering he is not eating much. Thank you very much Dr. Muñoz for asking us to see the patient. JOB# [id number] KYLE/GERARD
[2020-06-05] MEDS: metroNIDAZOLE/NS 500 MG/100 ML 500 MG/100 ML BAG IV SCH ×2 (14:45→22:07)
[2020-06-05] MEDS: carvediloL 12.5 MG TAB PO SCH (22:08)
[2020-06-06] MEDS: MORPHINE 2 MG/1 ML INJ IV PRN ×3 (02:10→21:52)
[2020-06-06] MEDS ORDERED: SODIUM CHLORIDE 0.9% 250ML 250 ML IV ONE (02:27)
[2020-06-06] MEDS ORDERED: KETOROLAC 30 MG/1 ML INJ IV ONE (02:50)
[2020-06-06 05:09] LABS: Basophils % (Auto) 0.1 % (0.0-1.8); Hematocrit 42.8 % (35.5-45.6); Hemoglobin 14.6 gm/dl (11.8-15.2); Lymphocytes # (Auto) 0.6 K/mm3 (1.2-5.4); Lymphocytes % (Auto) 5.4 % (13.4-35.0); Mean Corpuscular HGB Conc 34 % (32-34); Mean Corpuscular Volume 91 fl (84-94); Monocytes % (Auto) 9.9 % (0.0-7.3); Platelet Count 137 K/mm3 (140-440); Red Cell Distribution Width 14.6 % (13.2-15.2)
[2020-06-06 05:18] LABS: INR 1.5 (0.87-1.13)
[2020-06-06 05:24] LABS: Calcium 8.9 mg/dL (8.4-10.2)
--- NOTE | 2020-06-06 09:17 | Progress Note ---
Assessment and Plan - Patient Problems (1) Acute appendicitis Current Visit: Yes Status: Acute Qualifiers: Acute appendicitis type: with localized peritonitis Appendicitis gangrene presence: without gangrene Appendicitis perforation presence: with perforation Appendicitis abscess presence: without abscess Qualified Code(s): K35.32 - Acute appendicitis with perforation and localized peritonitis, without abscess Plan to address problem: Patient n.p.o. for appendectomy today CT findings of acute appendicitis with signs of mild perforation. Continue empiric IV antibiotics, IV fluid and IV analgesic medication. general surgeon Dr. Muñoz following (2) Hypertension-controlled Current Visit: Yes Status: Acute Plan to address problem: Monitor blood pressure continue antihypertensive medication. (3) Tobacco use Current Visit: No Status: Chronic Plan to address problem: Patient counseled on quitting tobacco abuse. nicotine patch daily. (4) DVT prophylaxis Current Visit: Yes Status: Acute Plan to address problem: Patient placed on sequential compression device. (5) Full code status Current Visit: Yes Status: Acute Patient scheduled for Appendectomy today - Patient Problems (1) Leukocytosis (leucocytosis) Current Visit: Yes Status: Acute Plan to address problem: Elevated WBC and fever likely 2/2 to appendicitis-resolved Continue empiric abx and monitor temp and WBC Blood culture-f/u with result General surgeon consulted (2) CHF (congestive heart failure) Current Visit: No Status: Acute Plan to address problem: patient has history of CHF and pulmonary embolism On xerolto Xerolto on hold for surgery tomorrow Consult band presser (3) SAMUEL (acute kidney injury) Current Visit: Yes Status: Acute Plan to address problem: Cr 1.7 ? cause Monitor Kidney function Continue IV hydration Advised to avoid nephrotoxic agents like ibuprofen CBC and BMP in am Subjective Date of service: 06/06/20 Principal diagnosis: appendicitis Interval history: Patient is for surgery today-appendectomy reviewed lab, mar, and v/s. reviewed specialist note and reces- Objective - Constitutional Vitals: Vital Signs - 12hr 06/05/20 06/05/20 06/05/20 22:08 22:09 22:11 Temperature Pulse Rate 97 H Respiratory 20 20 Rate Blood Pressure 122/78 O2 Sat by Pulse Oximetry 06/05/20 06/05/20 06/06/20 22:41 23:45 02:10 Temperature 100.1 F H Pulse Rate 110 H Respiratory 18 20 20 Rate Blood Pressure 110/78 O2 Sat by Pulse 93 Oximetry 06/06/20 06/06/20 06/06/20 02:55 04:26 08:06 Temperature 98.9 F 97.5 F L Pulse Rate 101 H 93 H Respiratory 20 18 18 Rate Blood Pressure 106/68 83/58 O2 Sat by Pulse 92 94 Oximetry 06/06/20 08:31 Temperature Pulse Rate Respiratory Rate Blood Pressure O2 Sat by Pulse 93 Oximetry General appearance: Present: no acute distress, well-nourished - EENT Eyes: PERRL, EOM intact ENT: hearing intact, clear oral mucosa Ears: bilateral: normal - Neck Neck: supple, normal ROM - Respiratory Respiratory effort: normal Respiratory: bilateral: CTA, diminished - Breasts Breasts: normal - Cardiovascular Heart rate: 76 Rhythm: regular Heart Sounds: Present: S1 & S2. Absent: gallop, rub Extremities: pulses intact, No edema, normal color, Full ROM - Gastrointestinal General gastrointestinal: Present: tender, normal bowel sounds Localized gastrointestinal: tender: RLQ - Genitourinary Male genitourinary: normal - Integumentary Integumentary: clear, warm, dry - Musculoskeletal Musculoskeletal: 1, strength equal bilaterally - Neurologic Neurologic: moves all extremities - Psychiatric Psychiatric: memory intact, appropriate mood/affect, intact judgment & insight - Allied health notes Allied health notes reviewed: nursing - Labs CBC & Chem 7: 06/06/20 04:43 06/06/20 04:43 Labs: Abnormal lab results 06/06/20 06/06/20 06/06/20 Range/Units 04:43 04:43 04:43 Plt Count 137 L (140-440) K/mm3 Lymph % (Auto) 5.4 L (13.4-35.0) % Wilson % (Auto) 9.9 H (0.0-7.3) % Lymph # (Auto) 0.6 L (1.2-5.4) K/mm3 [place] # (Auto) 1.0 H (0.0-0.8) K/mm3 Seg Neutrophils % 84.6 H (40.0-70.0) % Seg Neutrophils # 8.7 H (1.8-7.7) K/mm3 PT 18.4 H (12.2-14.9) Sec. INR 1.50 H (0.87-1.13) Creatinine 1.7 H (0.8-1.3) mg/dL Glucose 126 H (75-100) mg/dL
[2020-06-06] MEDS: carvediloL 12.5 MG TAB PO SCH ×2 (10:00→23:29)
[2020-06-06] MEDS: ONDANSETRON 4 MG/2 ML INJ IV PRN (10:16)
--- NOTE | 2020-06-06 10:18 | Anesthesia Consultation ---
Anesthesia Consult and Med Hx Date of service: 06/06/20 - Airway Anesthetic Teeth Evaluation: Edentulous ROM Head & Neck: Adequate Mental/Hyoid Distance: Adequate Mallampati Class: Class II Intubation Access Assessment: Probably Good - Pre-Operative Health Status ASA Pre-Surgery Classification: ASA3, Emergency Proposed Anesthetic Plan: General - Pulmonary Hx Smoking: Yes (Half a pack a day (from 1ppd)) Hx Asthma: No Hx Respiratory Symptoms: No SOB: No COPD: No Home Oxygen Therapy: No Hx Pneumonia: Yes Hx Sleep Apnea: No - Cardiovascular System Hx Hypertension: Yes Hx Heart Attack/AMI: No Hx Angina: No Hx Internal Defibrillator: Yes - Central Nervous System Hx Seizures: No CVA: Yes (2017) Hx Psychiatric Problems: No - Gastrointestinal Hx Ulcer: No Hx Gastroesophageal Reflux Disease: No - Endocrine Hx Renal Disease: No Hx End Stage Renal Disease: No Hx Liver Disease: No Hx Insulin Dependent Diabetes: No Hx Non-Insulin Dependent Diabetes: No Hx Thyroid Disease: No - Hematic Hx Anemia: No - Other Systems Hx Alcohol Use: No Hx Substance Use: No Hx Cancer: No Hx Obesity: Yes (BMI- 34.3kg) - Additional Comments Anesthesia Medical History Comments: Patient denied previous anesthesia complications
--- NOTE | 2020-06-06 10:19 | Anesthesia Day of Surgery ---
Anesthesia Day of Surgery - Day of Surgery Patient Examined: Yes Patient H&P Reviewed: Yes Patient is NPO: Yes
[2020-06-06] MEDS ORDERED: BUPIVACAINE/PF (0.25%) 2.5 MG/ML 30 ML VIAL INFILTRATI ONE (10:22)
[2020-06-06] MEDS ORDERED: LIDOCAINE (1%) 10 MG/1 ML VIAL 20 ML MDV ONE (10:22)
[2020-06-06] MEDS ORDERED: ePHEDrine SULFATE 50 MG/1 ML INJ ONE (10:34)
[2020-06-06] MEDS ORDERED: NEOSTIGMINE 10MG/10 ML INJ MDV ONE (11:15)
[2020-06-06] MEDS ORDERED: SUCCINYLCHOLINE CHLORIDE 200 MG/10 ML INJ MDV ONE (11:15)
[2020-06-06] MEDS ORDERED: LIDOCAINE MPF (2%) 20 MG/1 ML VIAL 5 ML ONE (11:15)
[2020-06-06] MEDS ORDERED: fentaNYL 100 MCG/2 ML INJ ONE (11:15)
[2020-06-06] MEDS ORDERED: ROCURONIUM 50 MG/5 ML INJ IV ONE (11:15)
[2020-06-06] MEDS ORDERED: ONDANSETRON 4 MG/2 ML INJ ONE (11:15)
[2020-06-06] MEDS ORDERED: dexAMETHasone 20 MG/5 ML VIAL ONE (11:15)
[2020-06-06] MEDS ORDERED: GLYCOPYRROLATE 0.4 MG/2 ML INJ ONE (11:15)
[2020-06-06] MEDS ORDERED: PHENYLEPHRINE/NS 1,000 MCG/10 ML SYRINGE (OR USE) IV ONE (11:15)
[2020-06-06] MEDS ORDERED: propofoL 200 MG/20 ML VIAL IV ONE (11:15)
[2020-06-06] MEDS ORDERED: HYDROmorphone 1 MG/1 ML INJ ONE ×2 (11:49→13:10)
[2020-06-06] MEDS ORDERED: SODIUM CHLORIDE 0.9% IRR 1,500 ML BOTTLE IR ONE (12:05)
[2020-06-06] MEDS ORDERED: BUPIVACAINE/PF (0.5%) 5 MG/1 ML 30 ML VIAL INFILTRATI ONE (12:06)
[2020-06-06] MEDS ORDERED: LIDOCAINE (1%) 10 MG/1 ML VIAL 20 ML MDV INFILTRATI ONE (12:12)
[2020-06-06] MEDS ORDERED: SUGAMMADEX SODIUM 200 MG/2 ML VIAL IV ONE (14:23)
--- NOTE | 2020-06-06 14:42 | Post Operative Note ---
Pre-op diagnosis: acute appendicitis with localized perforation Post-op diagnosis: other (acute gangrenous appendicitis with perforation and abscess) Findings: 1. Perforation approximately 1.5 cm from base of appendix with gross spillage of stool. 2. Large amount of gross purulent fluid in R abdomen and pelvis 3. Severely dilated small bowel 4. Majority of appendix was gangrenous NGT output - 1L uo: 300cc IVF: 800cc Procedure: diagnostic laparoroscopy, converted to exploratory laparotomy, appendectomy, peritoneal lavage, placement of incisional wound vac Anesthesia: GETA, local Surgeon: BARBARA WALLACE Estimated blood loss: 50-100ml Pathology: list (appendix) Specimen disposition: to lab Condition: stable Disposition: PACU
[2020-06-06] MEDS ORDERED: METOPROLOL TARTRATE 5 MG/5 ML INJ IV PRN (14:54)
--- NOTE | 2020-06-06 15:55 | Operative Report ---
Operative Report Operative Report: Pre-op diagnosis: acute appendicitis with localized perforation Post-op diagnosis: other (acute gangrenous appendicitis with perforation and abscess) Findings: 1. Perforation approximately 1.5 cm from base of appendix with gross spillage of stool. 2. Large amount of gross purulent fluid in R abdomen and pelvis 3. Severely dilated small bowel 4. Majority of appendix was gangrenous NGT output - 1L uo: 300cc IVF: 800cc Procedure: diagnostic laparoroscopy, converted to exploratory laparotomy, appendectomy, peritoneal lavage, placement of incisional wound vac Anesthesia: SRIRAMA, local Surgeon: BARBARA WALLACE Estimated blood loss: 50-100ml Pathology: list (appendix) Specimen disposition: to lab Condition: stable Disposition: PACU HPI and indication: Patient is a 64-year-old male who presented to the emergency room with 2 days of right lower quadrant abdominal pain, nausea, vomiting. Work-up revealed a leukocytosis and CT scan abdomen and pelvis showed acute appendicitis with likely localized perforation, without abscess formation. The patient was hemodynamically stable. He had a history of CHF, AICD, recent diagnosis of pulmonary embolism for which she was on Xarelto. Last dose was 24 hours prior to presentation. Appendectomy was recommended. It was also recommended that Xarelto be held for another 24 hours before proceeding to the operating room. Cardiology was consulted. I discussed all risk benefits, alte rnatives to surgery with the patient and questions were answered. Consent was obtained for laparoscopic, possible open appendectomy, possible colon resection. Procedure in detail: The patient was identified in the preoperative area, take back to operating room placed operative table in supine position. After anesthesia was induced the left arm was tucked and all bony prominences padded appropriately. Saini catheter was sterilely placed by the circulating nurse. Abdomen is then prepped and draped in usual sterile fashion timeout performed. Local anesthetic was infiltrated into skin at the intended incision sites. A 5 mm incision was made above the umbilicus through which a Veress needle was inserted. The Veress needle position was confirmed using saline drop test however insufflation pressures were high and therefore the Veress needle was removed. A maria ines incision was made in the left upper quadrant at Prasad's point. An NG tube was already placed by anesthesia by this time. Veress needle was inserted at Prasad's point and positioning confirmed using the saline drop test. Insufflation was attemped however, the preperitoneal space appeared to insufflate and therefore the Veress needle was removed. The Veress needle was placed directly through the umbilicus and positioning confirmed using the saline drop test. The abdomen was successfully insufflated at this site to 15 mmHg. A 5 mm Optiview trocar was then placed through the supraumbilical incision under direct visualization. The abdomen was inspected and there was no underlying injury to any abdominal structures. Upon examination, there was severely dilated small bowel directly in the field of view. There was fibrinous exudate and small bowel adhesions to the anterior abdominal wall in the right abdomen. The patient was placed in Trendelenburg and tilted to the left. A 5 mm suprapubic trocar was placed under direct visualization. The fibrinous adhesions from the small bowel to the anterior abdominal wall were very meticulously taken down using blunt dissection with the suction psychiatrist. Several abscess cavities were entered and there was pus evacuated. In the right upper quadrant a gangrenous appearing structure was identified with a perforation. There was stool coming from the perforation. Unfortunately due to the severely fluid filled, distended small bowel, the aalfc-to-kign was very limited and I could not proceed laparoscopically. The decision was made to convert to an open procedure. Using a 10 blade, a midline incision was made incorporating the supraumbilical incision. Subcutaneous tissue was dissected using electrocautery until the fascia was encountered. The 5 mm port was removed and the fascia was opened over 2 gloved fingers in a cephalad and caudad direction. The suprapubic trocar was removed. The small bowel was eviscerated and examined in its entirety throughout the case. There was no injury seen to the small bowel. The majority of the proximal and mid small bowel was severely distended. There was an intraloop abscess identified which was gently using blunt dissection and evacuated. I ran the small bowel distally from that point until the terminal ileum was identified. Distal to the intraloop abscess, the small bowel was decompressed. I was able to identify the cecum and then the appendix. The appendix was adhered to the right lateral abdominal wall. The appendix was gently from the lateral abdominal wall and surrounding structures using a combination of finger fracturing and harmonic scalpel. Great care was taken to avoid injury to surrounding structures. Once this was done the base of the appendix could be identified and the mesoappendix. A window was made at the base of the appendix using a hemostat. The mesoappendix was ligated using the harmonic scalpel. The base of the appendix was healthy and was stapled using an Ethicon articulating laparoscopic stapler, white load. The majority of the appendix was gangrenous. This was passed off the table as a specimen. At this point we turned our attention to irrigating the abdomen. Peritoneal lavage was performed with a copious amount of warm saline, greater than 3 L until all purulent material was evacuated and the irrigant returned clear. The abdomen was checked for hemostasis which was very carefully ensured. Once the abdomen was irrigated satisfactorily, then I turned my attention to identifying the placement of the NG tube. After adjustments by anesthesia, the NG tube was palpated in the stomach. The proximal and mid small bowel was severely distended and therefore the bowel contents were milked back towards the NG tube to help with decompression of the small bowel. This was the only way we would be able to close the fascia. Once the small bowel was adequately decompressed proximally, we decided to place a intra-abdominal drain. A 19 [place] DONNA drain was placed through the suprapubic 5 mm incision and brought into the abdomen. This was positioned in the pelvis and along the right paracolic gutter. This was sutured into place using a 2-0 nylon drain stitch. The bowel was then placed back into normal anatomic position. The staple line and the ligated mesoappendix were inspected and intact. There was no bleeding or leakage of bowel contents. We then turned our attention to closing the fascia. The fascia was closed with running #1 looped PDS x2. The preclosure peak pressures were 22-24 and post closure unchanged. The subcutaneous tissue was irrigated and hemostasis ensured. Surgical gloves were changed and an abdominal wound VAC was applied. 1 piece of black sponge was placed into the subcutaneous tissue and was secured using a Tegaderm. The wafer was applied in the usual fashion and the wound VAC connected to -125mmHg suction. There was no leak and all black foam compressed. A drain sponge was applied to the drain and secured with Tegaderm. A 2 x 2 gauze was applied to the left upper quadrant maria ines incision and secured with a Tegaderm. At the end of the case all sponge, instrument, sharp counts were correct x2. The patient was awoken from anesthesia extubated and taken to PACU in stable condition. An abdominal binder was applied.
[2020-06-06] MEDS: D5W/0.9% NACL 1,000 ML IV SCH (17:19)
--- NOTE | 2020-06-06 20:37 | Post Anesthesia Evaluation ---
- Post Anesthesia Evaluation Patient Participated: Yes Airway Patent: Yes Stable Respiratory Function: Yes Nausea/Vomiting: No Temp > 96.8F: Yes Pain Manageable: Yes Adequeate Hydration: Yes Anesthesia Complications: No Block Receding Appropriately: Not Applicable Patient on Ventilator: No
[2020-06-06] MEDS: PIPERACIL/TAZOBACTA 4.5/NS 100 4.5 GM/100 ML VIAL IV SCH (21:32)
[2020-06-07] MEDS: MORPHINE 2 MG/1 ML INJ IV PRN ×2 (02:06→07:23)
[2020-06-07] MEDS ORDERED: LORazepam 2 MG/ML VIAL IV ONE (02:51)
[2020-06-07] MEDS: PIPERACIL/TAZOBACTA 4.5/NS 100 4.5 GM/100 ML VIAL IV SCH ×4 (05:15→22:55)
[2020-06-07 05:28] LABS: Basophils % (Auto) 0.1 % (0.0-1.8); Hematocrit 37.4 % (35.5-45.6); Lymphocytes # (Auto) 0.6 K/mm3 (1.2-5.4); Lymphocytes % (Auto) 6.6 % (13.4-35.0); Mean Corpuscular HGB Conc 35 % (32-34); Mean Corpuscular Volume 90 fl (84-94); Monocytes # (Auto) 1.1 K/mm3 (0.0-0.8); Monocytes % (Auto) 10.7 % (0.0-7.3); Platelet Count 161 K/mm3 (140-440); Red Blood Count 4.15 M/mm3 (3.65-5.03); Red Cell Distribution Width 15.3 % (13.2-15.2)
[2020-06-07 05:51] LABS: BUN/Creatinine Ratio 16; Blood Urea Nitrogen 22 mg/dL (9-20); Calcium 8.1 mg/dL (8.4-10.2)
[2020-06-07 05:52] LABS: Hemolysis Index 8
[2020-06-07] MEDS: HYDROmorphone 1 MG/1 ML INJ IV PRN ×3 (10:48→21:28)
[2020-06-07] MEDS: PANTOPRAZOLE 40 MG INJ IV SCH (10:48)
[2020-06-07] MEDS: HEPARIN 5,000 UNIT/1 ML VIAL SUB-Q SCH ×2 (13:13→21:48)
--- NOTE | 2020-06-07 13:36 | Progress Note ---
Assessment and Plan Assessment and plan: --Acute appendicitis with localized perforation/abscess: s/p Diagnostic laparoroscopy, converted to exploratory laparotomy, appendectomy, peritoneal lavage, placement of incisional wound vac Continue postop care, surgery following --Sepsis due to acute perforated appendicitis. Fever, leukocytosis, tachycardia, perforated acute appendicitis. Continue current antibiotic Zosyn, follow cultures, ID following --Hypertension; moderate control Continue current antihypertensives and as needed medications --Acute kidney injury; not present on admission Due to vasomotor nephropathy, dehydration Monitor renal function, avoid nephrotoxins, IV hydration --Ongoing tobacco use; smoking cessation counseling Advised nicotine patch --Chronic systolic congestive heart failure; ejection fraction 25% Resume home anti failure medications, input output monitoring Cardiology consult if needed --Obesity; BMI 34.3 Patient needs weight reduction when medically stable --DVT prophylaxis;Heparin subcu We will closely monitor the patient and adjust management as needed Follow surgery and postop recommendations And of care reviewed with the patient and his nurse History Interval history: I have seen and examined the patient at the bedside in his room this afternoon Patient's chart and medications reviewed Patient with acute appendicitis s/p exploratory laparotomy, appendectomy, peritoneal lavage, placement of incisional wound vac Patient feels slightly better complains of some pain Denies nausea vomiting Vital signs noted Hospitalist Physical - Constitutional Vitals: Temp Pulse Resp BP Pulse Ox 98.1 F 89 20 112/72 98 06/07/20 11:06 06/07/20 11:06 06/07/20 11:06 06/07/20 11:06 06/07/20 11:06 General appearance: Present: no acute distress, well-nourished - EENT Eyes: Present: PERRL, EOM intact - Neck Neck: Present: supple, normal ROM - Respiratory Respiratory effort: normal Respiratory: bilateral: diminished, rales, negative: rhonchi, wheezing - Cardiovascular Rhythm: regular Heart Sounds: Present: S1 & S2 - Extremities Extremities: no ischemia, No edema - Abdominal General gastrointestinal: soft, non-tender, non-distended, hypoactive bowel sounds - Integumentary Integumentary: Present: clear, warm - Psychiatric Psychiatric: appropriate mood/affect, cooperative - Neurologic Neurologic: moves all extremities Results - Labs CBC & Chem 7: 06/07/20 04:57 06/07/20 04:57 Labs: Laboratory Last Values WBC 9.8 K/mm3 (4.5-11.0) 06/07/20 04:57 RBC 4.15 M/mm3 (3.65-5.03) 06/07/20 04:57 Hgb 13.0 gm/dl (11.8-15.2) 06/07/20 04:57 Hct 37.4 % (35.5-45.6) 06/07/20 04:57 MCV 90 fl (84-94) 06/07/20 04:57 MCH 31 pg (28-32) 06/07/20 04:57 MCHC 35 % (32-34) H 06/07/20 04:57 RDW 15.3 % (13.2-15.2) H 06/07/20 04:57 Plt Count 161 K/mm3 (140-440) 06/07/20 04:57 Lymph % (Auto) 6.6 % (13.4-35.0) L 06/07/20 04:57 Bee % (Auto) 10.7 % (0.0-7.3) H 06/07/20 04:57 Eos % (Auto) 0.0 % (0.0-4.3) 06/07/20 04:57 Baso % (Auto) 0.1 % (0.0-1.8) 06/07/20 04:57 Lymph # (Auto) 0.6 K/mm3 (1.2-5.4) L 06/07/20 04:57 Bee # (Auto) 1.1 K/mm3 (0.0-0.8) H 06/07/20 04:57 Eos # (Auto) 0.0 K/mm3 (0.0-0.4) 06/07/20 04:57 Baso # (Auto) 0.0 K/mm3 (0.0-0.1) 06/07/20 04:57 Seg Neutrophils % 82.6 % (40.0-70.0) H 06/07/20 04:57 Seg Neutrophils # 8.1 K/mm3 (1.8-7.7) H 06/07/20 04:57 PT 18.4 Sec. (12.2-14.9) H 06/06/20 04:43 INR 1.50 (0.87-1.13) H 06/06/20 04:43 Sodium 145 mmol/L (137-145) D 06/07/20 04:57 Potassium 4.1 mmol/L (3.6-5.0) 06/07/20 04:57 Chloride 108.7 mmol/L (98-107) H 06/07/20 04:57 Carbon Dioxide 24 mmol/L (22-30) 06/07/20 04:57 Anion Gap 16 mmol/L 06/07/20 04:57 BUN 22 mg/dL (9-20) H 06/07/20 04:57 Creatinine 1.4 mg/dL (0.8-1.3) H 06/07/20 04:57 Estimated GFR > 60 ml/min 06/07/20 04:57 BUN/Creatinine Ratio 16 % 06/07/20 04:57 Glucose 157 mg/dL (75-100) H 06/07/20 04:57 POC Glucose 125 (70-105) H 06/07/20 11:22 Calcium 8.1 mg/dL (8.4-10.2) L 06/07/20 04:57 Total Bilirubin 1.10 mg/dL (0.1-1.2) 06/04/20 21:35 AST 12 units/L (5-40) 06/04/20 21:35 ALT 15 units/L (7-56) 06/04/20 21:35 Alkaline Phosphatase 81 units/L (35-129) 06/04/20 21:35 Total Protein 7.9 g/dL (6.3-8.2) 06/04/20 21:35 Albumin 4.1 g/dL (3.9-5) 06/04/20 21:35 Albumin/Globulin Ratio 1.1 % 06/04/20 21:35 Lipase 16 units/L (13-60) 06/04/20 21:35 Urine Color Yellow (Yellow) 06/05/20 02:00 Urine Turbidity Clear (Clear) 06/05/20 02:00 Urine pH 5.0 (5.0-7.0) 06/05/20 02:00 Ur Specific [place] > 1.059 (1.003-1.030) H 06/05/20 02:00 Urine Protein 30 mg/dl mg/dL (Negative) 06/05/20 02:00 Urine Glucose (UA) Neg mg/dL (Negative) 06/05/20 02:00 Urine Ketones Tr mg/dL (Negative) 06/05/20 02:00 Urine Blood Mod (Negative) 06/05/20 02:00 Urine Nitrite Neg (Negative) 06/05/20 02:00 Urine Bilirubin Neg (Negative) 06/05/20 02:00 Urine Urobilinogen 4.0 mg/dL (<2.0) 06/05/20 02:00 Ur Leukocyte Esterase Neg (Negative) 06/05/20 02:00 Urine WBC (Auto) 3.0 /HPF (0.0-6.0) 06/05/20 02:00 Urine RBC (Auto) 9.0 /HPF (0.0-6.0) 06/05/20 02:00 U Epithel Cells (Auto) < 1.0 /HPF (0-13.0) 06/05/20 02:00 Urine Mucus 1+ /HPF 06/05/20 02:00 Microbiology: Microbiology 06/06/20 13:20 Abdomen Surgical Culture - Preliminary Gram Negative Cortez Gram Negative Cortez#2 06/05/20 00:35 Peripheral/Venous Blood Culture - Preliminary 06/05/20 00:27 Peripheral/Venous Blood Culture - Preliminary NO GROWTH AFTER 48 HOURS Saini/IV: Voiding Method Indwelling Catheter IV Catheter Type [Left Forearm Peripheral IV ] IV Catheter Type [Right Hand] Peripheral IV Active Medications - Current Medications Current Medications: Generic Name Dose Route Start Last Admin Trade Name Freq PRN Reason Stop Dose Admin Acetaminophen 650 mg 06/05/20 01:13 06/05/20 22:09 Tylenol PO 650 mg Q4H PRN Administration Pain MILD(1-3)/Fever >100.5/LOPEZ Carvedilol 12.5 mg 06/05/20 22:00 06/06/20 23:29 Coreg PO Not Given BID BART Heparin Sodium (Porcine) 5,000 unit 06/07/20 14:00 06/07/20 13:13 Heparin SUB-Q 5,000 unit Q8HR BART Administration Hydromorphone HCl 1 mg 06/06/20 14:43 06/07/20 10:48 Dilaudid IV 1 mg Q4H PRN Administration Pain , Severe (7-10) Piperacillin Sod/Tazobactam Sod 4.5 gm in 100 mls @ 200 mls/hr 06/05/20 14:00 06/07/20 13:14 Zosyn/Ns 4.5gm/100ml IV 200 mls/hr Q8HR BART Administration Protocol Dextrose/Sodium Chloride 1,000 mls @ 125 mls/hr 06/06/20 15:00 06/06/20 17:19 D5ns IV 125 mls/hr DIRECT BART Administration Lisinopril 10 mg 06/05/20 13:00 06/05/20 14:11 Zestril PO 10 mg QDAY BART Administration Metoprolol Tartrate 5 mg 06/06/20 14:54 Metoprolol IV Q6HR PRN Hypertension Morphine Sulfate 2 mg 06/05/20 01:13 06/07/20 07:23 Morphine IV 2 mg Q4H PRN Administration Pain, Moderate (4-6) Ondansetron HCl 4 mg 06/05/20 01:13 06/06/20 10:16 Zofran IV 4 mg Q8H PRN Administration Nausea And Vomiting Pantoprazole Sodium 40 mg 06/07/20 10:00 06/07/20 10:48 Protonix IV 40 mg QDAY BART Administration Sodium Chloride 10 ml 06/05/20 10:00 06/07/20 10:48 Sodium Chloride Flush Syringe 10 Ml IV 10 ml BID BART Administration Sodium Chloride 10 ml 06/05/20 01:13 Sodium Chloride Flush Syringe 10 Ml IV PRN PRN LINE FLUSH
--- NOTE | 2020-06-07 13:46 | Progress Note ---
Assessment and Plan Resume Xarelto when cleared by Surg. Resume home cardiac regimen when pt able to take PO meds. Continue PRN IV Lopressor for BP control otherwise. Echo pending. Closely monitor volume status. Pt seen in conjunction with Dr. Cerda, who agrees with the assessment and plan of care. - Patient Problems (1) Acute appendicitis Current Visit: Yes Status: Acute Qualifiers: Acute appendicitis type: with localized peritonitis Appendicitis gangrene presence: without gangrene Appendicitis perforation presence: with perforation Appendicitis abscess presence: without abscess Qualified Code(s): K35.32 - Acute appendicitis with perforation and localized peritonitis, without abscess (2) SAMUEL (acute kidney injury) Current Visit: Yes Status: Acute (3) Chronic HFrEF (heart failure with reduced ejection fraction) Current Visit: Yes Status: Chronic (4) Cardiomyopathy Current Visit: Yes Status: Chronic (5) ICD (implantable cardioverter-defibrillator) in place Current Visit: Yes Status: Chronic (6) Hypertension Current Visit: Yes Status: Chronic Qualifiers: Hypertension type: essential hypertension Qualified Code(s): I10 - Essential (primary) hypertension (7) History of pulmonary embolism Current Visit: Yes Status: Acute Plan to address problem: ~ 3 months ago - on Xarelto (8) Tobacco abuse Current Visit: Yes Status: Chronic (9) H/O: CVA (cerebrovascular accident) Current Visit: Yes Status: Chronic Plan to address problem: ~ 4 yrs ago Subjective Date of service: 06/07/20 Principal diagnosis: Acute Appendicitis Interval history: S/p ex lap/appendectomy yesterday - pt tolerated well. Pt resting comfortably in bed upon exam today. Post-op pain is manageable. Pt denies any cardiac complaints. Tele reviewed - SR 60s w/no acute events noted. Objective Last Vital Signs Temp 98.1 F 06/07/20 11:06 Pulse 89 06/07/20 11:06 Resp 20 06/07/20 11:06 BP 112/72 06/07/20 11:06 Pulse Ox 98 06/07/20 11:06 - Physical Examination General: No Apparent Distress HEENT: Positive: EOMI, Normocephaly Neck: Positive: neck supple, trachea midline. Negative: JVD/HJR Cardiac: Positive: Reg Rate and Rhythm, S1/S2 Lungs: Positive: Decreased Breath Sounds Neuro: Positive: Grossly Intact Abdomen: Positive: Other (wound vac) Skin: Negative: Rash Musculoskeletal: No Pain Extremities: Present: upper extr. pulses, lower extr. pulses, edema (trace BLE) - Labs and Meds CBC 06/07/20 Range/Units 04:57 WBC 9.8 (4.5-11.0) K/mm3 RBC 4.15 (3.65-5.03) M/mm3 Hgb 13.0 (11.8-15.2) gm/dl Hct 37.4 (35.5-45.6) % Plt Count 161 (140-440) K/mm3 Lymph # (Auto) 0.6 L (1.2-5.4) K/mm3 [place] # (Auto) 1.1 H (0.0-0.8) K/mm3 Eos # (Auto) 0.0 (0.0-0.4) K/mm3 Baso # (Auto) 0.0 (0.0-0.1) K/mm3 Comprehensive Metabolic Panel 06/07/20 Range/Units 04:57 Sodium 145 D (137-145) mmol/L Potassium 4.1 (3.6-5.0) mmol/L Chloride 108.7 H (98-107) mmol/L Carbon Dioxide 24 (22-30) mmol/L BUN 22 H (9-20) mg/dL Creatinine 1.4 H (0.8-1.3) mg/dL Glucose 157 H (75-100) mg/dL Calcium 8.1 L (8.4-10.2) mg/dL - Imaging and Cardiology EKG: report reviewed, image reviewed Pharmacologic stress test: other (2014 - no evidence of ischemia, EF ~ 19%) Echo: pending, other (2015 - LV mod dilated; LV sys fxn mod-severely reduced; EF 25-30%; LA mildly dilated; mild AR; mod MR; borderline pulm HTN) - Telemetry EKG Rhythm: Sinus Rhythm
[2020-06-07] MEDS: metroNIDAZOLE/NS 500 MG/100 ML 500 MG/100 ML BAG IV SCH (14:49)
--- NOTE | 2020-06-07 15:23 | Progress Note ---
Subjective Date of service: 06/07/20 Principal diagnosis: Acute Appendicitis Interval history: 64-year-old man past medical history CHF, hypertension, pulmonary embolism, CVA presented to the hospital complaining of abdominal pain which began approximately 24 to 48 hours prior to admission. He also complains of associated nausea and vomiting. At the time pain was mostly in the right lower abdomen, and on presentation to the hospital he was found to have an acute perforated appendicitis on the CT. He was taken to the OR on 06/06/2020 for abdominal washout with a large amount of peritoneal fluid present in the abdomen. He also had his severely dilated small bowel. Afebrile since admission with a white count is improving which is now 10. Currently on Zosyn. Blood cultures currently pending. Surgical cultures with 2 gram-negative rods awaiting identification. Imaging personally reviewed: CT abdomen pelvis: Acute perforated appendicitis. Review of Systems: Bold if positive, otherwise negative General: fevers, chills, rigors HEENT: visual disturbance, diplopia, eye pain Respiratory: cough, sputum, hemoptysis, shortness of breath Cardiovascular: chest pain, syncope Gastrointestinal: nausea, vomiting, diarrhea, abdominal pain Genitourinary: dysuria, hematuria, flank pain Musculoskeletal: neck pain, back pain, joint pain, edema Neurologic: headaches, seizures Hematologic: easy bruising or bleeding Endocrine: night sweats, acute weight loss Skin: rash, jaundice, redness Psychiatric: suicidal, homicidal ideation Objective - Constitutional Vitals: Vital Signs Temp Pulse Resp BP Pulse Ox 98.1 F 89 20 112/72 98 06/07/20 11:06 06/07/20 11:06 06/07/20 11:06 06/07/20 11:06 06/07/20 11:06 Temperature -Last 24 Hours Temperature 98.1 F Temperature 97.9 F Temperature 97.9 F Temperature 98.2 F Temperature 97.8 F Temperature 97.7 F Temperature 97 F - Labs CBC & Chem 7: 06/07/20 04:57 06/07/20 04:57 Labs: Abnormal lab results 06/06/20 06/06/20 06/07/20 Range/Units 18:06 23:57 04:57 MCHC 35 H (32-34) % RDW 15.3 H (13.2-15.2) % Lymph % (Auto) 6.6 L (13.4-35.0) % [place] % (Auto) 10.7 H (0.0-7.3) % Lymph # (Auto) 0.6 L (1.2-5.4) K/mm3 [place] # (Auto) 1.1 H (0.0-0.8) K/mm3 Seg Neutrophils % 82.6 H (40.0-70.0) % Seg Neutrophils # 8.1 H (1.8-7.7) K/mm3 Chloride (98-107) mmol/L BUN (9-20) mg/dL Creatinine (0.8-1.3) mg/dL Glucose (75-100) mg/dL POC Glucose 119 H 155 H (70-105) Calcium (8.4-10.2) mg/dL 06/07/20 06/07/20 06/07/20 Range/Units 04:57 06:05 11:22 MCHC (32-34) % RDW (13.2-15.2) % Lymph % (Auto) (13.4-35.0) % [place] % (Auto) (0.0-7.3) % Lymph # (Auto) (1.2-5.4) K/mm3 [place] # (Auto) (0.0-0.8) K/mm3 Seg Neutrophils % (40.0-70.0) % Seg Neutrophils # (1.8-7.7) K/mm3 Chloride 108.7 H (98-107) mmol/L BUN 22 H (9-20) mg/dL Creatinine 1.4 H (0.8-1.3) mg/dL Glucose 157 H (75-100) mg/dL POC Glucose 151 H 125 H (70-105) Calcium 8.1 L (8.4-10.2) mg/dL
--- NOTE | 2020-06-07 15:30 | Consultation ---
History of Present Illness - Reason for Consult Consult date: 06/07/20 - History of Present Illness 64-year-old man past medical history CHF, hypertension, pulmonary embolism, CVA presented to the hospital complaining of abdominal pain which began approximately 24 to 48 hours prior to admission. He also complains of associated nausea and vomiting. At the time pain was mostly in the right lower abdomen, and on presentation to the hospital he was found to have an acute perforated appendicitis on the CT. He was taken to the OR on 06/06/2020 for abdominal washout with a large amount of peritoneal fluid present in the abdomen. He also had his severely dilated small bowel. Afebrile since admission with a white count is improving which is now 10. Currently on Zosyn. Blood cultures currently pending. Surgical cultures with 2 gram-negative rods awaiting identification. Imaging personally reviewed: CT abdomen pelvis: Acute perforated appendicitis. Review of Systems: Bold if positive, otherwise negative General: fevers, chills, rigors HEENT: visual disturbance, diplopia, eye pain Respiratory: cough, sputum, hemoptysis, shortness of breath Cardiovascular: chest pain, syncope Gastrointestinal: nausea, vomiting, diarrhea, abdominal pain Genitourinary: dysuria, hematuria, flank pain Musculoskeletal: neck pain, back pain, joint pain, edema Neurologic: headaches, seizures Hematologic: easy bruising or bleeding Endocrine: night sweats, acute weight loss Skin: rash, jaundice, redness Psychiatric: suicidal, homicidal ideation Past History Past Medical History: heart failure, hypertension, pulmonary embolism, stroke Past Surgical History: Other (Defibrillator Placement) Social history: smoking (Current daily smoker) Family history: no significant family history Medications and Allergies Allergies Allergy/AdvReac Type Severity Reaction Status Date / Time No Known Allergies Allergy Verified 09/11/14 03:17 Home Medications Medication Instructions Recorded Confirmed Last Taken Type Aspirin [Aspirin BABY CHEW TAB] 81 mg PO QDAY #30 tab.chew 09/14/14 09/29/14 09/28/14 Rx Furosemide [Lasix TAB] 20 mg PO QDAY #30 tablet 09/14/14 09/29/14 09/28/14 Rx carvediloL [Coreg] 3.125 mg PO BID #60 tablet 09/14/14 09/29/14 09/28/14 Rx lisinopriL [Zestril TAB] 2.5 mg PO QDAY #30 tablet 09/14/14 09/29/14 09/28/14 Rx Furosemide [Lasix] 40 mg PO DAILY #60 tablet 09/29/14 Unknown Rx HYDROcodone/APAP 5-325 [[place] 1 each PO Q6HR PRN #20 tablet 10/10/14 Unknown Rx 5-325 mg TAB] Omeprazole [PriLOSEC] 20 mg PO BID #30 cap 10/10/14 Unknown Rx Promethazine [Phenergan] 25 mg PO Q6H PRN #20 tablet 10/10/14 Unknown Rx Active Meds: Active Medications Acetaminophen (Tylenol) 650 mg PO Q4H PRN PRN Reason: Pain MILD(1-3)/Fever >100.5/LOPEZ Last Admin: 06/05/20 22:09 Dose: 650 mg Documented by: Carvedilol (Coreg) 12.5 mg PO BID [facility] Last Admin: 06/06/20 23:29 Dose: Not Given Documented by: Heparin Sodium (Porcine) (Heparin) 5,000 unit SUB-Q Q8HR [facility] Last Admin: 06/07/20 13:13 Dose: 5,000 unit Documented by: Hydromorphone HCl (Dilaudid) 1 mg IV Q4H PRN PRN Reason: Pain , Severe (7-10) Last Admin: 06/07/20 10:48 Dose: 1 mg Documented by: Piperacillin Sod/Tazobactam Sod (Zosyn/Ns 4.5gm/100ml) 4.5 gm in 100 mls @ 200 mls/hr IV Q8HR BART; Protocol Last Admin: 06/07/20 13:14 Dose: 200 mls/hr Documented by: Dextrose/Sodium Chloride (D5ns) 1,000 mls @ 125 mls/hr IV DIRECT BART Last Admin: 06/06/20 17:19 Dose: 125 mls/hr Documented by: Lisinopril (Zestril) 10 mg PO QDAY [facility] Last Admin: 06/05/20 14:11 Dose: 10 mg Documented by: Metoprolol Tartrate (Metoprolol) 5 mg IV Q6HR PRN PRN Reason: Hypertension Morphine Sulfate (Morphine) 2 mg IV Q4H PRN PRN Reason: Pain, Moderate (4-6) Last Admin: 06/07/20 07:23 Dose: 2 mg Documented by: Ondansetron HCl (Zofran) 4 mg IV Q8H PRN PRN Reason: Nausea And Vomiting Last Admin: 06/06/20 10:16 Dose: 4 mg Documented by: Pantoprazole Sodium (Protonix) 40 mg IV QDAY [facility] Last Admin: 06/07/20 10:48 Dose: 40 mg Documented by: Sodium Chloride (Sodium Chloride Flush Syringe 10 Ml) 10 ml IV BID [facility] Last Admin: 06/07/20 10:48 Dose: 10 ml Documented by: Sodium Chloride (Sodium Chloride Flush Syringe 10 Ml) 10 ml IV PRN PRN PRN Reason: LINE FLUSH Physical Examination - Physical Exam Narrative exam: Physical Exam: Constitutional: Alert, cooperative. No acute distress, obese Head, Ears, Nose: Normocephalic, atraumatic. External ears, nose normal Eyes: Conjunctivae/corneas clear. No icterus. No ptosis. Neck: Supple, no meningeal signs Oral: dentition fair, no thrush Cardiovascular: S1, S2 normal. Respiratory: Good air entry, clear to auscultation bilaterally GI: Incisional wound VAC in place, expected tenderness postoperatively. Musculoskeletal: No pedal edema, no cyanosis. Skin: No rash or abscess Hem/Lymphatic: No palpable cervical or supraclavicular nodes. No lymphangitis Psych: Mood ok. Affect normal Neurological: Awake, alert, oriented. No gross abnormality - Constitutional Vitals: Vital Signs Temp Pulse Resp BP Pulse Ox 98.1 F 89 20 112/72 98 06/07/20 11:06 06/07/20 11:06 06/07/20 11:06 06/07/20 11:06 06/07/20 11:06 Temperature -Last 24 Hours Temperature 98.1 F Temperature 97.9 F Temperature 97.9 F Temperature 98.2 F Temperature 97.8 F Temperature 97.7 F Temperature 97 F Results - Labs CBC & Chem 7: 06/07/20 04:57 06/07/20 04:57 Labs: Abnormal lab results 06/06/20 06/06/20 06/07/20 Range/Units 18:06 23:57 04:57 MCHC 35 H (32-34) % RDW 15.3 H (13.2-15.2) % Lymph % (Auto) 6.6 L (13.4-35.0) % [place] % (Auto) 10.7 H (0.0-7.3) % Lymph # (Auto) 0.6 L (1.2-5.4) K/mm3 [place] # (Auto) 1.1 H (0.0-0.8) K/mm3 Seg Neutrophils % 82.6 H (40.0-70.0) % Seg Neutrophils # 8.1 H (1.8-7.7) K/mm3 Chloride (98-107) mmol/L BUN (9-20) mg/dL Creatinine (0.8-1.3) mg/dL Glucose (75-100) mg/dL POC Glucose 119 H 155 H (70-105) Calcium (8.4-10.2) mg/dL 06/07/20 06/07/20 06/07/20 Range/Units 04:57 06:05 11:22 MCHC (32-34) % RDW (13.2-15.2) % Lymph % (Auto) (13.4-35.0) % [place] % (Auto) (0.0-7.3) % Lymph # (Auto) (1.2-5.4) K/mm3 [place] # (Auto) (0.0-0.8) K/mm3 Seg Neutrophils % (40.0-70.0) % Seg Neutrophils # (1.8-7.7) K/mm3 Chloride 108.7 H (98-107) mmol/L BUN 22 H (9-20) mg/dL Creatinine 1.4 H (0.8-1.3) mg/dL Glucose 157 H (75-100) mg/dL POC Glucose 151 H 125 H (70-105) Calcium 8.1 L (8.4-10.2) mg/dL Assessment and Plan Cultures: Blood culture 06/05/2020 pending Surgical culture 06/06/2020 2X gram-negative juju awaiting ID and DENTON A/P: 64-year-old man past medical history CHF, hypertension, pulmonary embolism, CVA presents with acute perforated appendicitis. #Perforated appendicitis: Status post washout by surgery. Cultures were obtained intraoperatively and are currently pending. #SAMUEL: Resolving Recs: -Continue Zosyn for now pending ID and DENTON of the gram-negative rods in the cultures -Added fluconazole 200 mg every 24 hours -Follow-up blood cultures. -Plan on 5 to 7 days of antibiotics post washout Thank you for the consult, we will continue to follow. Robin Hathaway MD [facility] O: [phone] F: [phone]
[2020-06-07] MEDS: carvediloL 12.5 MG TAB PO SCH (15:47)
--- NOTE | 2020-06-07 16:19 | Progress Note ---
Assessment and Plan 64-year-old male status post diagnostic laparoroscopy, converted to exploratory laparotomy, appendectomy, peritoneal lavage, placement of incisional wound vac, POD 1 1. Perforated appendicitis with generalized peritonitis and abscess 2. Ileus 2/2 #1 3. bacteremia 2/2 #1 Plan: 1. dc ibrahim 2. NGT to LIWS 3. NPO except ice chips 4. IVF 5. await bowel function 6. IV abx - ID recs reviewed and appreciated. Bl cx - gram neg rods 7. intraop cultures pending 8. DVT ppx - SQH. Hold xarelto until patient on PO diet 9. cards recs reviewed and appreciated 10. prn pain control 11. incentive spirometry/pulm toilet 12. PT consulted. Pt ok to be OOB 13. continue incisional wound vac and abdominal drain as per orders. research management associate consulted - vac change scheduled for . Intraoperative findings and plan discussed with patient along with his daughter at his request. All questions answered. Will follow. Thank you Evaluation and treatment of this patient was during the time of the national and state emergency arising from COVID19 coronavirus pandemic. Treatment and procedures performed meet the current and available best practice and guidelines for patient during the COVID pandemic. Subjective Date of service: 06/07/20 Objective Vital Signs - 12hr 06/07/20 06/07/20 06/07/20 05:15 07:00 07:15 Temperature 98.2 F 97.9 F 97.9 F Pulse Rate 94 H 89 92 H Respiratory 18 20 20 Rate Blood Pressure 139/83 132/73 Blood Pressure 132/73 [Right] O2 Sat by Pulse 98 98 97 Oximetry 06/07/20 11:06 Temperature 98.1 F Pulse Rate 89 Respiratory 20 Rate Blood Pressure 112/72 Blood Pressure [Right] O2 Sat by Pulse 98 Oximetry - Labs 06/07/20 04:57 06/07/20 04:57 Diabetes panel 06/07/20 Range/Units 04:57 Sodium 145 D (137-145) mmol/L Potassium 4.1 (3.6-5.0) mmol/L Chloride 108.7 H (98-107) mmol/L Carbon Dioxide 24 (22-30) mmol/L BUN 22 H (9-20) mg/dL Creatinine 1.4 H (0.8-1.3) mg/dL Glucose 157 H (75-100) mg/dL Calcium 8.1 L (8.4-10.2) mg/dL Calcium panel 06/07/20 Range/Units 04:57 Calcium 8.1 L (8.4-10.2) mg/dL Pituitary panel 06/07/20 Range/Units 04:57 Sodium 145 D (137-145) mmol/L Potassium 4.1 (3.6-5.0) mmol/L Chloride 108.7 H (98-107) mmol/L Carbon Dioxide 24 (22-30) mmol/L BUN 22 H (9-20) mg/dL Creatinine 1.4 H (0.8-1.3) mg/dL Glucose 157 H (75-100) mg/dL Calcium 8.1 L (8.4-10.2) mg/dL Adrenal panel 06/07/20 Range/Units 04:57 Sodium 145 D (137-145) mmol/L Potassium 4.1 (3.6-5.0) mmol/L Chloride 108.7 H (98-107) mmol/L Carbon Dioxide 24 (22-30) mmol/L BUN 22 H (9-20) mg/dL Creatinine 1.4 H (0.8-1.3) mg/dL Glucose 157 H (75-100) mg/dL Calcium 8.1 L (8.4-10.2) mg/dL
[2020-06-07] MEDS ORDERED: HYDROmorphone 1 MG/1 ML INJ IV PRN (16:30)
[2020-06-07] MEDS: D5W/0.9% NACL 1,000 ML IV SCH (17:51)
[2020-06-07] MEDS: ONDANSETRON 4 MG/2 ML INJ IV PRN (21:27)
[2020-06-08] MEDS: HYDROmorphone 1 MG/1 ML INJ IV PRN ×6 (02:40→23:24)
[2020-06-08] MEDS: D5W/0.9% NACL 1,000 ML IV SCH ×2 (04:53→18:06)
[2020-06-08] MEDS: PIPERACIL/TAZOBACTA 4.5/NS 100 4.5 GM/100 ML VIAL IV SCH ×3 (05:14→22:00)
[2020-06-08] MEDS: HEPARIN 5,000 UNIT/1 ML VIAL SUB-Q SCH ×3 (06:45→21:14)
--- NOTE | 2020-06-08 08:58 | Progress Note ---
Assessment and Plan Assessment and plan: --Acute appendicitis with localized perforation/abscess: s/p Diagnostic laparoroscopy, converted to exploratory laparotomy, appendectomy, peritoneal lavage, placement of incisional wound vac, postop care per surgery -NG tube to low intermittent suction -N.p.o. status with chips of ice -IV fluids, pain medications, supportive care -Ambulate as tolerated --Sepsis due to acute perforated appendicitis. Fever, leukocytosis, tachycardia, perforated acute appendicitis. -Continue Zosyn, per ID follow cultures. --Hypertension; moderate control Continue current antihypertensives and as needed medications --Acute kidney injury; not present on admission Due to vasomotor nephropathy, dehydration Monitor renal function, avoid nephrotoxins, IV hydration Renal function back to baseline normal range --Ongoing tobacco use; smoking cessation counseling Advised nicotine patch --Chronic systolic congestive heart failure; ejection fraction 25% Resume home anti failure medications, input output monitoring Cardiology consult if needed --Obesity; BMI 34.3 Patient needs weight reduction when medically stable --DVT prophylaxis;Heparin subcu[hold Xarelto\ We will closely monitor the patient and adjust management as needed Follow surgery and postop recommendations Plan of care reviewed with the patient and his nurse. History Interval history: I have seen and examined the patient at the bedside Patient did not have flatus, NG tube in place Tolerating ice chips Complains of some abdominal discomfort Vital signs noted Hospitalist Physical - Constitutional Vitals: Temp Pulse Resp BP Pulse Ox 98.4 F 88 18 123/66 95 06/08/20 07:33 06/08/20 07:35 06/08/20 07:33 06/08/20 07:33 06/08/20 07:35 General appearance: Present: no acute distress, well-nourished, obese - EENT Eyes: Present: PERRL, EOM intact - Neck Neck: Present: supple, normal ROM - Respiratory Respiratory effort: normal Respiratory: bilateral: diminished, negative: rales, rhonchi, wheezing - Cardiovascular Rhythm: regular Heart Sounds: Present: S1 & S2 - Extremities Extremities: no ischemia, No edema - Abdominal General gastrointestinal: soft, non-tender, distended (Mild), absent bowel sounds - Integumentary Integumentary: Present: clear, warm - Psychiatric Psychiatric: appropriate mood/affect, cooperative - Neurologic Neurologic: moves all extremities Results - Labs CBC & Chem 7: 06/07/20 04:57 06/08/20 09:08 Labs: Laboratory Last Values WBC 9.8 K/mm3 (4.5-11.0) 06/07/20 04:57 RBC 4.15 M/mm3 (3.65-5.03) 06/07/20 04:57 Hgb 13.0 gm/dl (11.8-15.2) 06/07/20 04:57 Hct 37.4 % (35.5-45.6) 06/07/20 04:57 MCV 90 fl (84-94) 06/07/20 04:57 MCH 31 pg (28-32) 06/07/20 04:57 MCHC 35 % (32-34) H 06/07/20 04:57 RDW 15.3 % (13.2-15.2) H 06/07/20 04:57 Plt Count 161 K/mm3 (140-440) 06/07/20 04:57 Lymph % (Auto) 6.6 % (13.4-35.0) L 06/07/20 04:57 [place] % (Auto) 10.7 % (0.0-7.3) H 06/07/20 04:57 Eos % (Auto) 0.0 % (0.0-4.3) 06/07/20 04:57 Baso % (Auto) 0.1 % (0.0-1.8) 06/07/20 04:57 Lymph # (Auto) 0.6 K/mm3 (1.2-5.4) L 06/07/20 04:57 [place] # (Auto) 1.1 K/mm3 (0.0-0.8) H 06/07/20 04:57 Eos # (Auto) 0.0 K/mm3 (0.0-0.4) 06/07/20 04:57 Baso # (Auto) 0.0 K/mm3 (0.0-0.1) 06/07/20 04:57 Seg Neutrophils % 82.6 % (40.0-70.0) H 06/07/20 04:57 Seg Neutrophils # 8.1 K/mm3 (1.8-7.7) H 06/07/20 04:57 PT 18.4 Sec. (12.2-14.9) H 06/06/20 04:43 INR 1.50 (0.87-1.13) H 06/06/20 04:43 Sodium 145 mmol/L (137-145) D 06/07/20 04:57 Potassium 4.1 mmol/L (3.6-5.0) 06/07/20 04:57 Chloride 108.7 mmol/L (98-107) H 06/07/20 04:57 Carbon Dioxide 24 mmol/L (22-30) 06/07/20 04:57 Anion Gap 16 mmol/L 06/07/20 04:57 BUN 22 mg/dL (9-20) H 06/07/20 04:57 Creatinine 1.4 mg/dL (0.8-1.3) H 06/07/20 04:57 Estimated GFR > 60 ml/min 06/07/20 04:57 BUN/Creatinine Ratio 16 % 06/07/20 04:57 Glucose 157 mg/dL (75-100) H 06/07/20 04:57 POC Glucose 134 (70-105) H 06/08/20 05:59 Calcium 8.1 mg/dL (8.4-10.2) L 06/07/20 04:57 Total Bilirubin 1.10 mg/dL (0.1-1.2) 06/04/20 21:35 AST 12 units/L (5-40) 06/04/20 21:35 ALT 15 units/L (7-56) 06/04/20 21:35 Alkaline Phosphatase 81 units/L (35-129) 06/04/20 21:35 Total Protein 7.9 g/dL (6.3-8.2) 06/04/20 21:35 Albumin 4.1 g/dL (3.9-5) 06/04/20 21:35 Albumin/Globulin Ratio 1.1 % 06/04/20 21:35 Lipase 16 units/L (13-60) 06/04/20 21:35 Urine Color Yellow (Yellow) 06/05/20 02:00 Urine Turbidity Clear (Clear) 06/05/20 02:00 Urine pH 5.0 (5.0-7.0) 06/05/20 02:00 Ur Specific [place] > 1.059 (1.003-1.030) H 06/05/20 02:00 Urine Protein 30 mg/dl mg/dL (Negative) 06/05/20 02:00 Urine Glucose (UA) Neg mg/dL (Negative) 06/05/20 02:00 Urine Ketones Tr mg/dL (Negative) 06/05/20 02:00 Urine Blood Mod (Negative) 06/05/20 02:00 Urine Nitrite Neg (Negative) 06/05/20 02:00 Urine Bilirubin Neg (Negative) 06/05/20 02:00 Urine Urobilinogen 4.0 mg/dL (<2.0) 06/05/20 02:00 Ur Leukocyte Esterase Neg (Negative) 06/05/20 02:00 Urine WBC (Auto) 3.0 /HPF (0.0-6.0) 06/05/20 02:00 Urine RBC (Auto) 9.0 /HPF (0.0-6.0) 06/05/20 02:00 U Epithel Cells (Auto) < 1.0 /HPF (0-13.0) 06/05/20 02:00 Urine Mucus 1+ /HPF 06/05/20 02:00 Microbiology: Microbiology 06/05/20 00:27 Peripheral/Venous Blood Culture - Preliminary NO GROWTH AFTER 72 HOURS 06/06/20 13:20 Abdomen Surgical Culture - Preliminary Gram Negative [place] Gram Negative [place]#2 06/05/20 00:35 Peripheral/Venous Blood Culture - Preliminary Saini/IV: Voiding Method Condom Catheter IV Catheter Type [Left Forearm Peripheral IV ] IV Catheter Type [Right Hand] Peripheral IV Active Medications - Current Medications Current Medications: Generic Name Dose Route Start Last Admin Trade Name Freq PRN Reason Stop Dose Admin Acetaminophen 650 mg 06/05/20 01:13 06/05/20 22:09 Tylenol PO 650 mg Q4H PRN Administration Pain MILD(1-3)/Fever >100.5/LOPEZ Heparin Sodium (Porcine) 5,000 unit 06/07/20 14:00 06/08/20 06:45 Heparin SUB-Q 5,000 unit Q8HR BART Administration Hydromorphone HCl 1 mg 06/06/20 14:43 06/08/20 06:44 Dilaudid IV 1 mg Q4H PRN Administration Pain , Severe (7-10) Hydromorphone HCl 0.5 mg 06/07/20 16:30 Dilaudid IV Q4H PRN Pain, Moderate (4-6) Piperacillin Sod/Tazobactam Sod 4.5 gm in 100 mls @ 200 mls/hr 06/05/20 14:00 06/08/20 05:14 Zosyn/Ns 4.5gm/100ml IV 200 mls/hr Q8HR BART Administration Protocol Dextrose/Sodium Chloride 1,000 mls @ 125 mls/hr 06/06/20 15:00 06/08/20 04:53 D5ns IV 125 mls/hr DIRECT BART Administration Lisinopril 10 mg 06/05/20 13:00 06/05/20 14:11 Zestril PO 10 mg QDAY BART Administration Metoprolol Tartrate 5 mg 06/06/20 14:54 Metoprolol IV Q6HR PRN Hypertension Ondansetron HCl 4 mg 06/05/20 01:13 06/07/20 21:27 Zofran IV 4 mg Q8H PRN Administration Nausea And Vomiting Pantoprazole Sodium 40 mg 06/07/20 10:00 06/07/20 10:48 Protonix IV 40 mg QDAY BART Administration Sodium Chloride 10 ml 06/05/20 10:00 06/07/20 22:57 Sodium Chloride Flush Syringe 10 Ml IV 10 ml BID BART Administration Sodium Chloride 10 ml 06/05/20 01:13 Sodium Chloride Flush Syringe 10 Ml IV PRN PRN LINE FLUSH
[2020-06-08] MEDS: PANTOPRAZOLE 40 MG INJ IV SCH (09:57)
[2020-06-08 10:39] LABS: BUN/Creatinine Ratio 19; Blood Urea Nitrogen 21 mg/dL (9-20); Calcium 8.6 mg/dL (8.4-10.2); Hemolysis Index 34
[2020-06-08] MEDS: LISINOPRIL 10 MG TAB PO SCH (11:18)
[2020-06-08] MEDS: FLUCONAZOLE 200 MG 200 MG/100 ML BAG IV SCH (11:49)
--- NOTE | 2020-06-08 13:40 | Progress Note ---
Assessment and Plan Cultures: Blood culture 06/05/2020 pending Surgical culture 06/06/2020 E. coli pansensitive, gram-negative juju awaiting ID and DENTON A/P: 64-year-old man past medical history CHF, hypertension, pulmonary embolism, CVA presents with acute perforated appendicitis. #Perforated appendicitis: Status post washout by surgery. Cultures were obt ained intraoperatively and are currently pending. #SAMUEL: Resolving Recs: -Continue Zosyn for now pending ID and DENTON of the gram-negative rods in the cultures -Added fluconazole 200 mg every 24 hours -Follow-up blood cultures. -Plan on 5 to 7 days of antibiotics post washout Thank you for the consult, we will continue to follow. Robin Hathaway MD [facility] O: [phone] F: [phone] Subjective Date of service: 06/08/20 Principal diagnosis: Acute Appendicitis Interval history: Afebrile, normal white count. First gram-negative identified is a pansensitive E. coli, pending identification. Imaging personally reviewed: Abdominal x-ray: Colonic distention. Objective - Exam Narrative Exam: Physical Exam: Constitutional: Alert, cooperative. No acute distress, obese Head, Ears, Nose: Normocephalic, atraumatic. Eyes: Conjunctivae/corneas clear. No icterus. No ptosis. Neck: Supple, no meningeal signs Oral: dentition fair, no thrush Cardiovascular: S1, S2 normal. Respiratory: Good air entry, clear to auscultation bilaterally GI: Incisional wound VAC in place, expected tenderness postoperatively. Musculoskeletal: No pedal edema, no cyanosis. Skin: No rash or abscess Hem/Lymphatic: No palpable cervical or supraclavicular nodes. No lymphangitis Psych: Mood ok. Affect normal Neurological: Awake, alert, oriented. No gross abnormality - Constitutional Vitals: Vital Signs Temp Pulse Resp BP Pulse Ox 98.7 F 81 20 140/79 93 06/08/20 11:27 06/08/20 11:27 06/08/20 11:27 06/08/20 11:27 06/08/20 11:27 Temperature -Last 24 Hours Temperature 98.7 F Temperature 98.4 F Temperature 98.2 F Temperature 98.3 F Temperature 98.2 F Temperature 98.3 F - Labs CBC & Chem 7: 06/07/20 04:57 06/08/20 09:08 Labs: Abnormal lab results 06/07/20 06/08/20 06/08/20 Range/Units 23:04 05:59 09:08 Chloride 112.2 H (98-107) mmol/L Carbon Dioxide 21 L (22-30) mmol/L BUN 21 H (9-20) mg/dL Glucose 118 H (75-100) mg/dL POC Glucose 106 H 134 H (70-105) Phosphorus 2.00 L (2.5-4.5) mg/dL Magnesium 2.90 H (1.7-2.3) mg/dL
--- NOTE | 2020-06-08 15:45 | XRay Report ---
ABDOMEN ONE VIEW INDICATION / CLINICAL INFORMATION: ileus. COMPARISON: None available. FINDINGS: A catheter is present in the pelvic region. Bowel gas pattern is nonspecific in appearance. A nasogas tric tube is present. No definite evidence of obstruction Signer Name: Cristino Adrian MD FACR Signed: 06/08/2020 3:40 PM Workstation Name: [id number]
--- NOTE | 2020-06-08 16:09 | Progress Note ---
Assessment and Plan 64-year-old male status post diagnostic laparoroscopy, converted to exploratory laparotomy, appendectomy, peritoneal lavage, placement of incisional wound vac, POD 2 1. Perforated appendicitis with generalized peritonitis and abscess 2. Ileus 2/2 #1 3. bacteremia 2/2 #1 Bl cx - gram neg rods. intraabd cx - g-juju, ecoli Plan: 1. NGT to LIWS 2. NPO except ice chips 3. IVF 4. await bowel function 5. IV abx - ID recs reviewed and appreciated. 6. DVT ppx - SQH. Hold xarelto until patient on PO diet 7. cards recs reviewed and appreciated 8. prn pain control 9. incentive spirometry/pulm toilet 10. OOB/ambulate 11. continue incisional wound vac and abdominal drain as per orders. bilingual customer service consulted - vac change scheduled for . Thank you. Please call with questions. Evaluation and treatment of this patient was during the time of the national and state emergency arising from COVID19 coronavirus pandemic. Treatment and procedures performed meet the current and available best practice and guidelines for patient during the COVID pandemic. Subjective Date of service: 06/08/20 Narrative: Patient seen and examined. He states his pain is very well controlled with the current IV pain medication. No fevers chills, chest pain, shortness of breath, nausea, vomiting. He has been up out of bed walking with physical therapy. He has been voiding on his own after Saini catheter was removed yesterday. He states he passed flatus last night but none since then. No bowel movement Objective Vital Signs - 12hr 06/08/20 06/08/20 06/08/20 05:41 07:33 07:35 Temperature 98.2 F 98.4 F Pulse Rate 84 88 Respiratory 18 18 Rate Blood Pressure 147/89 123/66 O2 Sat by Pulse 92 95 Oximetry 06/08/20 11:27 Temperature 98.7 F Pulse Rate 81 Respiratory 20 Rate Blood Pressure 140/79 O2 Sat by Pulse 93 Oximetry - General physical appearance Narrative Exam: Gen.: Awake, alert, oriented 3. No apparent distress ENT: NGT with scant drainage in canister, appears to be more gastric with sediment in tubing CV: S1, S2 present Respiratory: No audible wheezes Abdomen: Soft, nondistended, NT. Incisional wound VAC present with good seal and no leak, scant serosang drainage in tubing. Suprapubic DONNA drain serosanguineous. Abdominal binder in place. No rebound, rigidity, guarding Extremities: No clubbing, cyanosis, edema Output in last 24 hours NGT - 830cc DONNA out -70cc Uo- 1650cc - Labs 06/07/20 04:57 06/08/20 09:08 Diabetes panel 06/08/20 Range/Units 09:08 Sodium 143 (137-145) mmol/L Potassium 4.6 (3.6-5.0) mmol/L Chloride 112.2 H (98-107) mmol/L Carbon Dioxide 21 L (22-30) mmol/L BUN 21 H (9-20) mg/dL Creatinine 1.1 (0.8-1.3) mg/dL Glucose 118 H (75-100) mg/dL Calcium 8.6 (8.4-10.2) mg/dL Calcium panel 06/08/20 Range/Units 09:08 Calcium 8.6 (8.4-10.2) mg/dL Phosphorus 2.00 L (2.5-4.5) mg/dL Pituitary panel 06/08/20 Range/Units 09:08 Sodium 143 (137-145) mmol/L Potassium 4.6 (3.6-5.0) mmol/L Chloride 112.2 H (98-107) mmol/L Carbon Dioxide 21 L (22-30) mmol/L BUN 21 H (9-20) mg/dL Creatinine 1.1 (0.8-1.3) mg/dL Glucose 118 H (75-100) mg/dL Calcium 8.6 (8.4-10.2) mg/dL Adrenal panel 06/08/20 Range/Units 09:08 Sodium 143 (137-145) mmol/L Potassium 4.6 (3.6-5.0) mmol/L Chloride 112.2 H (98-107) mmol/L Carbon Dioxide 21 L (22-30) mmol/L BUN 21 H (9-20) mg/dL Creatinine 1.1 (0.8-1.3) mg/dL Glucose 118 H (75-100) mg/dL Calcium 8.6 (8.4-10.2) mg/dL
[2020-06-09] MEDS: HYDROmorphone 1 MG/1 ML INJ IV PRN ×5 (03:35→21:14)
[2020-06-09] MEDS: D5W/0.9% NACL 1,000 ML IV SCH (03:35)
[2020-06-09] MEDS: HEPARIN 5,000 UNIT/1 ML VIAL SUB-Q SCH ×3 (05:51→21:24)
[2020-06-09] MEDS: PIPERACIL/TAZOBACTA 4.5/NS 100 4.5 GM/100 ML VIAL IV SCH ×3 (06:00→21:12)
[2020-06-09 06:05] LABS: BUN/Creatinine Ratio 19; Blood Urea Nitrogen 17 mg/dL (9-20); Calcium 8.3 mg/dL (8.4-10.2); Hemolysis Index 7
[2020-06-09] MEDS: FLUCONAZOLE 200 MG 200 MG/100 ML BAG IV SCH (10:17)
[2020-06-09] MEDS: PANTOPRAZOLE 40 MG INJ IV SCH (10:18)
[2020-06-09] MEDS: LISINOPRIL 10 MG TAB PO SCH (10:56)
--- NOTE | 2020-06-09 14:23 | Progress Note ---
Assessment and Plan Cultures: Blood culture 06/05/2020 Prevotella Surgical culture 06/06/2020 E. coli pansensitive, gram-negative juju awaiting ID and DENTON A/P: 64-year-old man past medical history CHF, hypertension, pulmonary embolism, CVA presents with acute perforated appendicitis. #Perforated appendicitis: Status post washout by surgery. Cultures were obtained intraoperatively and are currently pending. #Prevotella bacteremia: secondary to necrotic appendicitis. #SAMUEL: Resolving Recs: -Continue Zosyn for now pending ID and DENTON of the gram-negative rods in the cultures -Continue fluconazole 200 mg every 24 hours -Plan on 5 to 7 days of antibiotics post washout for intra-abdominal pathogens, 14 days for blood pathogen -Final antibiotic selection pending identification of the gram-negative jjuu Thank you for the consult, we will continue to follow. Robin Hathaway MD [facility] ([facility] O: [phone] F: [phone] Subjective Date of service: 06/09/20 Principal diagnosis: Acute Appendicitis Interval history: Afebrile, no acute change. Blood cultures now with Prevotella. Awaiting speciation of second gram-negative juju and surgical culture. Objective - Exam Narrative Exam: Physical Exam: Constitutional: Alert, cooperative. No acute distress, obese Head, Ears, Nose: Normocephalic, atraumatic. Eyes: Conjunctivae/corneas clear. No icterus. No ptosis. Neck: Supple, no meningeal signs Oral: dentition fair, no thrush Cardiovascular: S1, S2 normal. Respiratory: Good air entry, clear to auscultation bilaterally GI: Incisional wound VAC in place, expected tenderness postoperatively. Musculoskeletal: No pedal edema, no cyanosis. Skin: No rash or abscess Hem/Lymphatic: No palpable cervical or supraclavicular nodes. No lymphangitis Psych: Mood ok. Affect normal Neurological: Awake, alert, oriented. No gross abnormality - Constitutional Vitals: Vital Signs Temp Pulse Resp BP Pulse Ox 98.9 F 60 17 167/88 96 06/09/20 12:16 06/09/20 12:16 06/09/20 12:16 06/09/20 12:16 06/09/20 12:16 Temperature -Last 24 Hours Temperature 98.9 F Temperature 98.3 F Temperature 98.4 F Temperature 98.7 F Temperature 98.8 F Temperature 98.5 F - Labs CBC & Chem 7: 06/07/20 04:57 06/09/20 04:40 Labs: Abnormal lab results 06/08/20 06/08/20 06/09/20 Range/Units 11:41 23:52 04:40 Chloride 108.5 H (98-107) mmol/L Glucose 112 H (75-100) mg/dL POC Glucose 115 H 119 H (70-105) mg/dL Calcium 8.3 L (8.4-10.2) mg/dL Phosphorus 2.00 L (2.5-4.5) mg/dL 06/09/20 Range/Units 05:56 Chloride (98-107) mmol/L Glucose (75-100) mg/dL POC Glucose 121 H (70-105) mg/dL Calcium (8.4-10.2) mg/dL Phosphorus (2.5-4.5) mg/dL
--- NOTE | 2020-06-09 16:06 | Progress Note ---
Assessment and Plan 64-year-old male status post diagnostic laparoroscopy, converted to exploratory laparotomy, appendectomy, peritoneal lavage, placement of incisional wound vac, POD 3 1. Perforated appendicitis with generalized peritonitis and abscess 2. Ileus 2/2 #1 3. bacteremia 2/2 #1 Bl cx - PREVOTELLA ORALIS intraabd cx - g-juju, ecoli Plan: 1. NGT clamp trial until 1800, if passes ok to remove NGT 2. NPO except ice chips. Will start CLD if able to remove NGT 3. maintenance IVF 4. IV abx - ID recs reviewed and appreciated. 5. DVT ppx - SQH. Hold xarelto until patient on PO diet 6. cards recs reviewed and appreciated 7. prn pain control 8. incentive spirometry/pulm toilet 9. OOB/ambulate 10. continue incisional wound vac and abdominal drain as per orders. master chef consulted - vac change scheduled for . Thank you. Please call with questions. Evaluation and treatment of this patient was during the time of the national and state emergency arising from COVID19 coronavirus pandemic. Treatment and procedures performed meet the current and available best practice and guidelines for patient during the COVID pandemic. Subjective Date of service: 06/09/20 Narrative: Patient seen and examined. No acute complaints. Pain is well managed. No fevers or chills. He states he passed a large amount of flatus today. No bowel movement. Objective Vital Signs - 12hr 06/09/20 06/09/20 06/09/20 05:40 07:07 07:32 Temperature 98.4 F 98.3 F Pulse Rate 55 L 55 L Respiratory 18 24 Rate Blood Pressure 162/102 174/109 Blood Pressure [Right] O2 Sat by Pulse 94 95 95 Oximetry 06/09/20 06/09/20 06/09/20 10:30 10:56 11:15 Temperature Pulse Rate 71 71 71 Respiratory 17 Rate Blood Pressure 160/87 160/87 Blood Pressure 160/87 [Right] O2 Sat by Pulse 95 Oximetry 06/09/20 06/09/20 12:16 15:30 Temperature 98.9 F 98.4 F Pulse Rate 60 70 Respiratory 17 18 Rate Blood Pressure 167/88 Blood Pressure 177/95 [Right] O2 Sat by Pulse 96 95 Oximetry - General physical appearance Narrative Exam: Gen.: Awake, alert, oriented 3. No apparent distress ENT: NGT with brown gastric drainage in tubing CV: S1, S2 present Respiratory: No audible wheezes Abdomen: Soft, nondistended, NT. Incisional wound VAC present with good seal and no leak, scant serosang drainage in tubing. Suprapubic DONNA drain serous. Abdominal binder in place. No rebound, rigidity, guarding Extremities: No clubbing, cyanosis, edema Output in last 24 hours NGT - 100cc DONNA out -150cc Uo- 1200cc - Labs 06/07/20 04:57 06/09/20 04:40 Diabetes panel 06/09/20 Range/Units 04:40 Sodium 144 (137-145) mmol/L Potassium 3.7 (3.6-5.0) mmol/L Chloride 108.5 H (98-107) mmol/L Carbon Dioxide 25 (22-30) mmol/L BUN 17 (9-20) mg/dL Creatinine 0.9 (0.8-1.3) mg/dL Glucose 112 H (75-100) mg/dL Calcium 8.3 L (8.4-10.2) mg/dL Calcium panel 06/09/20 Range/Units 04:40 Calcium 8.3 L (8.4-10.2) mg/dL Phosphorus 2.00 L (2.5-4.5) mg/dL Pituitary panel 06/09/20 Range/Units 04:40 Sodium 144 (137-145) mmol/L Potassium 3.7 (3.6-5.0) mmol/L Chloride 108.5 H (98-107) mmol/L Carbon Dioxide 25 (22-30) mmol/L BUN 17 (9-20) mg/dL Creatinine 0.9 (0.8-1.3) mg/dL Glucose 112 H (75-100) mg/dL Calcium 8.3 L (8.4-10.2) mg/dL Adrenal panel 06/09/20 Range/Units 04:40 Sodium 144 (137-145) mmol/L Potassium 3.7 (3.6-5.0) mmol/L Chloride 108.5 H (98-107) mmol/L Carbon Dioxide 25 (22-30) mmol/L BUN 17 (9-20) mg/dL Creatinine 0.9 (0.8-1.3) mg/dL Glucose 112 H (75-100) mg/dL Calcium 8.3 L (8.4-10.2) mg/dL
[2020-06-09] MEDS: D5W/0.45% NACL/KCL 20 MEQ 20 MEQ/1,000 ML BAG IV SCH (17:18)
--- NOTE | 2020-06-09 18:17 | Progress Note ---
Assessment and Plan Assessment and plan: --Hypophosphatemia; IV K-Phos, closely monitor electrolytes --Acute appendicitis with localized perforation/abscess: s/p Diagnostic laparoroscopy, converted to exploratory laparotomy, appendectomy, peritoneal lavage, placement of incisional wound vac, postop care per surgery -NG tube removed -Chips of ice -IV fluids, pain medications, supportive care -Ambulate as tolerated --Sepsis due to acute perforated appendicitis. Fever, leukocytosis, tachycardia, perforated acute appendicitis. -Continue Zosyn, per ID follow cultures. --Hypertension; moderate control Continue current antihypertensives and as needed medications --Acute kidney injury; not present on admission Due to vasomotor nephropathy, dehydration Monitor renal function, avoid nephrotoxins, IV hydration Renal function back to baseline normal range --Ongoing tobacco use; smoking cessation counseling Advised nicotine patch --Chronic systolic congestive heart failure; ejection fraction 25% Resume home anti failure medications, input output monitoring Cardiology consult if needed --Obesity; BMI 34.3 Patient needs weight reduction when medically stable --DVT prophylaxis;Heparin subcu[hold Xarelto\ We will closely monitor the patient and adjust management as needed Follow surgery and postop recommendations Plan of care reviewed with the patient and his nurse. History Interval history: I have seen and examined the patient at the bedside Patient's chart and medications reviewed Patient feels slightly better tolerating clear liquids Vital signs noted Hospitalist Physical - Constitutional Vitals: Temp Pulse Resp BP Pulse Ox 98.4 F 70 18 177/95 95 06/09/20 15:30 06/09/20 15:30 06/09/20 15:30 06/09/20 15:30 06/09/20 15:30 General appearance: Present: no acute distress, well-nourished, obese - EENT Eyes: Present: PERRL, EOM intact - Neck Neck: Present: supple, normal ROM - Respiratory Respiratory effort: normal Respiratory: bilateral: diminished, negative: rales, rhonchi - Cardiovascular Rhythm: regular Heart Sounds: Present: S1 & S2 - Extremities Extremities: no ischemia, No edema - Abdominal General gastrointestinal: soft, non-tender, non-distended, normal bowel sounds - Integumentary Integumentary: Present: clear, warm - Psychiatric Psychiatric: appropriate mood/affect, cooperative - Neurologic Neurologic: moves all extremities Results - Labs CBC & Chem 7: 06/07/20 04:57 06/09/20 04:40 Labs: Laboratory Last Values WBC 9.8 K/mm3 (4.5-11.0) 06/07/20 04:57 RBC 4.15 M/mm3 (3.65-5.03) 06/07/20 04:57 Hgb 13.0 gm/dl (11.8-15.2) 06/07/20 04:57 Hct 37.4 % (35.5-45.6) 06/07/20 04:57 MCV 90 fl (84-94) 06/07/20 04:57 MCH 31 pg (28-32) 06/07/20 04:57 MCHC 35 % (32-34) H 06/07/20 04:57 RDW 15.3 % (13.2-15.2) H 06/07/20 04:57 Plt Count 161 K/mm3 (140-440) 06/07/20 04:57 Lymph % (Auto) 6.6 % (13.4-35.0) L 06/07/20 04:57 [place] % (Auto) 10.7 % (0.0-7.3) H 06/07/20 04:57 Eos % (Auto) 0.0 % (0.0-4.3) 06/07/20 04:57 Baso % (Auto) 0.1 % (0.0-1.8) 06/07/20 04:57 Lymph # (Auto) 0.6 K/mm3 (1.2-5.4) L 06/07/20 04:57 [place] # (Auto) 1.1 K/mm3 (0.0-0.8) H 06/07/20 04:57 Eos # (Auto) 0.0 K/mm3 (0.0-0.4) 06/07/20 04:57 Baso # (Auto) 0.0 K/mm3 (0.0-0.1) 06/07/20 04:57 Seg Neutrophils % 82.6 % (40.0-70.0) H 06/07/20 04:57 Seg Neutrophils # 8.1 K/mm3 (1.8-7.7) H 06/07/20 04:57 PT 18.4 Sec. (12.2-14.9) H 06/06/20 04:43 INR 1.50 (0.87-1.13) H 06/06/20 04:43 Sodium 144 mmol/L (137-145) 06/09/20 04:40 Potassium 3.7 mmol/L (3.6-5.0) 06/09/20 04:40 Chloride 108.5 mmol/L (98-107) H 06/09/20 04:40 Carbon Dioxide 25 mmol/L (22-30) 06/09/20 04:40 Anion Gap 14 mmol/L 06/09/20 04:40 BUN 17 mg/dL (9-20) 06/09/20 04:40 Creatinine 0.9 mg/dL (0.8-1.3) 06/09/20 04:40 Estimated GFR > 60 ml/min 06/09/20 04:40 BUN/Creatinine Ratio 19 % 06/09/20 04:40 Glucose 112 mg/dL (75-100) H 06/09/20 04:40 POC Glucose 121 mg/dL (70-105) H 06/09/20 05:56 Calcium 8.3 mg/dL (8.4-10.2) L 06/09/20 04:40 Phosphorus 2.00 mg/dL (2.5-4.5) L 06/09/20 04:40 Magnesium 2.10 mg/dL (1.7-2.3) 06/09/20 04:40 Total Bilirubin 1.10 mg/dL (0.1-1.2) 06/04/20 21:35 AST 12 units/L (5-40) 06/04/20 21:35 ALT 15 units/L (7-56) 06/04/20 21:35 Alkaline Phosphatase 81 units/L (35-129) 06/04/20 21:35 Total Protein 7.9 g/dL (6.3-8.2) 06/04/20 21:35 Albumin 4.1 g/dL (3.9-5) 06/04/20 21:35 Albumin/Globulin Ratio 1.1 % 06/04/20 21:35 Lipase 16 units/L (13-60) 06/04/20 21:35 Urine Color Yellow (Yellow) 06/05/20 02:00 Urine Turbidity Clear (Clear) 06/05/20 02:00 Urine pH 5.0 (5.0-7.0) 06/05/20 02:00 Ur Specific Dulzura > 1.059 (1.003-1.030) H 06/05/20 02:00 Urine Protein 30 mg/dl mg/dL (Negative) 06/05/20 02:00 Urine Glucose (UA) Neg mg/dL (Negative) 06/05/20 02:00 Urine Ketones Tr mg/dL (Negative) 06/05/20 02:00 Urine Blood Mod (Negative) 06/05/20 02:00 Urine Nitrite Neg (Negative) 06/05/20 02:00 Urine Bilirubin Neg (Negative) 06/05/20 02:00 Urine Urobilinogen 4.0 mg/dL (<2.0) 06/05/20 02:00 Ur Leukocyte Esterase Neg (Negative) 06/05/20 02:00 Urine WBC (Auto) 3.0 /HPF (0.0-6.0) 06/05/20 02:00 Urine RBC (Auto) 9.0 /HPF (0.0-6.0) 06/05/20 02:00 U Epithel Cells (Auto) < 1.0 /HPF (0-13.0) 06/05/20 02:00 Urine Mucus 1+ /HPF 06/05/20 02:00 Microbiology: Microbiology 06/05/20 00:35 Peripheral/Venous Blood Culture - Preliminary Prevotella Oralis Group 06/06/20 13:20 Abdomen Surgical Culture - Preliminary Escherichia Coli Gram Negative Cortez#2 06/05/20 00:27 Peripheral/Venous Blood Culture - Preliminary NO GROWTH AFTER 4 DAYS - Diagnostic Impressions Diagnostic Impressions: Echocardiogram 06/05/20 11:49 Transthoracic Echocardiogram Indication: Syncope BP: 110/78 HR: 90 Conclusions *Global left ventricular systolic function is severely decreased. *The estimated ejection fraction is 15-20%. *There is no evidence of aortic regurgitation. *There is mild mitral regurgitation. *There is trace tricuspid regurgitation. *The right ventricular systolic pressure is calculated at 16 mmHg. *The right ventricular chamber size and systolic function are within normal limits. Findings Left Ventricle: The left ventricular chamber size is severely dilated. Mild concentric left ventricular hypertrophy is observed. Global left ventricular systolic function is severely decreased. The estimated ejection fraction is 15-20%. Abnormal left ventricular diastolic filling is observed, consistent with impaired relaxation. Left Atrium: The left atrial chamber size is normal. Right Ventricle: The right ventricular chamber size and systolic function are within normal limits. The right ventricular cavity size is normal. Right Atrium: The right atrial cavity size is normal. Aortic Valve: The aortic valve leaflets are mildly thickened. There is no evidence of aortic regurgitation. Mitral Valve: There is mitral annular calcification. The mitral valve leaflets are mildly thickened. There is mild mitral regurgitation. Tricuspid Valve: The tricuspid valve leaflets are normal. There is trace tricuspid regurgitation. The right ventricular systolic pressure is calculated at 16 mmHg. Pulmonic Valve: The pulmonic valve appears normal. Pericardium: There is no pericardial effusion. Aorta: The aorta appears normal. Venous: The inferior vena cava is not visualized. Measurements Chambers 2D Name Value Normal Range IVSd (2D) 1.16 cm (0.6 - 1.1) LVPWd (2D) 1.22 cm (0.6 - 1.1) LVIDd (2D) 6.83 cm (3.7 - 5.6) LVIDs (2D) 6.28 cm (2 - 3.8) LV FS (2D) 8.03 % - EF Teichholz (2D) 17.3 % - Ao root diameter (2D) 3.46 cm (2 - 3.7) Volumes/Mass Name Value Normal Range LA ESV SP 4CH (A/L) 31.49 ml - LA ESV SP 2CH (A/L) 43.34 ml - LA ESV BP (A/L) 37.57 ml - LA ESV BP (A/L) index 15.27 ml/m2 - LA ESV SP 4CH (MOD) 27.19 ml - LA ESV SP 2CH (MOD) 41.47 ml - LA ESV BP (MOD) 33.9 ml - LA ESV BP (MOD) index 13.78 ml/m2 - Diastolic/Systolic Function Name Value Normal Range MV E-wave Vmax 0.52 m/sec - MV deceleration time 169.73 msec - MV A-wave Vmax 0.62 m/sec - MV E:A ratio 0.84 ratio - Aortic Valve Name Value Normal Range AV Vmax 1.37 m/sec - AV VTI 24.09 cm - AV peak gradient 7.48 mmHg - AV mean gradient 3.85 mmHg - LVOT diameter 2.11 cm - LVOT Vmax 1.07 m/sec - LVOT VTI 20.55 cm - LVOT peak gradient 4.57 mmHg - LVOT mean gradient 2.43 mmHg - SV LVOT 71.7 ml - MARGARETTE (continuity Vmax) 2.73 cm2 - MARGARETTE (continuity VTI) 2.98 cm2 - Mitral Valve Name Value Normal Range MR Vmax 4.81 m/sec - Tricuspid Valve Name Value Normal Range TR Vmax 1.79 m/sec - TR peak gradient 13 mmHg - RAP 3 mmHg - RVSP 16 mmHg - Pulmonic Valve/Qp:Qs Name Value Normal Range PV Vmax 0.87 m/sec - PV peak gradient 3.06 mmHg - PV acceleration time 95.15 msec - Saini/IV: Voiding Method Urinal IV Catheter Type [Left Forearm Peripheral IV ] IV Catheter Type [Right Hand] Peripheral IV Active Medications - Current Medications Current Medications: Generic Name Dose Route Start Last Admin Trade Name Freq PRN Reason Stop Dose Admin Acetaminophen 650 mg 06/05/20 01:13 06/05/20 22:09 Tylenol PO 650 mg Q4H PRN Administration Pain MILD(1-3)/Fever >100.5/LOPEZ Heparin Sodium (Porcine) 5,000 unit 06/07/20 14:00 06/09/20 14:19 Heparin SUB-Q 5,000 unit Q8HR BART Administration Hydromorphone HCl 1 mg 06/06/20 14:43 06/09/20 14:00 Dilaudid IV 1 mg Q4H PRN Administration Pain , Severe (7-10) Hydromorphone HCl 0.5 mg 06/07/20 16:30 Dilaudid IV Q4H PRN Pain, Moderate (4-6) Piperacillin Sod/Tazobactam Sod 4.5 gm in 100 mls @ 200 mls/hr 06/05/20 14:00 06/09/20 14:26 Zosyn/Ns 4.5gm/100ml IV 200 mls/hr Q8HR BART Administration Protocol Fluconazole 200 mg in 100 mls @ 100 mls/hr 06/08/20 12:00 06/09/20 10:17 Diflucan IV 100 mls/hr Q24HR BART Administration Potassium Chloride/Dextrose/Sod Cl 20 meq in 1,000 mls @ 75 mls/hr 06/09/20 17:00 06/09/20 17:18 D5w/0.45% Nacl/Kcl 20 Meq IV 75 mls/hr DIRECT BART Administration Lisinopril 10 mg 06/05/20 13:00 06/09/20 10:56 Zestril PO Not Given QDAY BART Metoprolol Tartrate 5 mg 06/06/20 14:54 06/09/20 11:15 Metoprolol IV 5 mg Q6HR PRN Administration Hypertension Ondansetron HCl 4 mg 06/05/20 01:13 06/07/20 21:27 Zofran IV 4 mg Q8H PRN Administration Nausea And Vomiting Pantoprazole Sodium 40 mg 06/07/20 10:00 06/09/20 10:18 Protonix IV 40 mg QDAY BART Administration Sodium Chloride 10 ml 06/05/20 10:00 06/09/20 10:20 Sodium Chloride Flush Syringe 10 Ml IV 10 ml BID BART Administration Sodium Chloride 10 ml 06/05/20 01:13 06/09/20 14:00 Sodium Chloride Flush Syringe 10 Ml IV 10 ml PRN PRN Administration LINE FLUSH
[2020-06-09] MEDS ORDERED: POTASSIUM PHOSPHATE 15 MMOL in SODIUM CHLORIDE 0.9% 250ML 250 ML IV ONE (20:24)
[2020-06-09] MEDS: ONDANSETRON 4 MG/2 ML INJ IV PRN (21:18)
[2020-06-10] MEDS: HYDROmorphone 1 MG/1 ML INJ IV PRN ×4 (03:09→19:51)
[2020-06-10] MEDS ORDERED: LORazepam 2 MG/ML VIAL IV ONE (04:40)
[2020-06-10] MEDS: PIPERACIL/TAZOBACTA 4.5/NS 100 4.5 GM/100 ML VIAL IV SCH ×3 (05:01→22:17)
[2020-06-10] MEDS: HEPARIN 5,000 UNIT/1 ML VIAL SUB-Q SCH ×3 (05:03→22:16)
[2020-06-10] MEDS: LISINOPRIL 10 MG TAB PO SCH ×2 (08:13→10:10)
[2020-06-10] MEDS: PANTOPRAZOLE 40 MG INJ IV SCH ×2 (08:14→10:09)
[2020-06-10] MEDS: FLUCONAZOLE 200 MG 200 MG/100 ML BAG IV SCH (10:08)
--- NOTE | 2020-06-10 12:45 | Progress Note ---
Assessment and Plan 64-year-old male status post diagnostic laparoroscopy, converted to exploratory laparotomy, appendectomy, peritoneal lavage, placement of incisional wound vac, POD 4 1. Perforated appendicitis with generalized peritonitis and abscess 2. Ileus 2/2 #1 3. bacteremia 2/2 #1 Bl cx - PREVOTELLA ORALIS intraabd cx - g-juju, ecoli Plan: 1. CLD, adv to fulls 2. maintenance IVF 3. IV abx - ID recs reviewed and appreciated. 4. DVT ppx - SQH. 5. cards recs reviewed and appreciated 6. may restart oral medications, ok to restart xarelto in am 7. prn pain control 8. incentive spirometry/pulm toilet 9. OOB/ambulate 10. continue incisional wound vac - changed today. C/w abdominal drain as per orders. 11. Home health care ordered Thank you. Please call with questions. Evaluation and treatment of this patient was during the time of the national and state emergency arising from COVID19 coronavirus pandemic. Treatment and pr ocedures performed meet the current and available best practice and guidelines for patient during the COVID pandemic. Subjective Date of service: 06/10/20 Narrative: Pt seen and examined. No acute complaints, states he feels well. + Flatus, no BM. No f/c. Tolerated clear liquids and NGT was removed yesterday. Objective Vital Signs - 12hr 06/10/20 06/10/20 06/10/20 04:16 07:28 08:13 Temperature 98.4 F 98.7 F Pulse Rate 60 58 L 58 L Respiratory 18 18 Rate Blood Pressure 155/82 179/95 179/95 Blood Pressure [Right] O2 Sat by Pulse 93 94 Oximetry 06/10/20 06/10/20 09:02 11:00 Temperature 98.8 F Pulse Rate 60 Respiratory 18 Rate Blood Pressure Blood Pressure 159/74 [Right] O2 Sat by Pulse 92 94 Oximetry - General physical appearance Narrative Exam: Gen.: Awake, alert, oriented 3. No apparent distress CV: S1, S2 present Respiratory: No audible wheezes Abdomen: Soft, nondistended, NT. Incisional wound VAC present with good seal and no leak, scant serosang drainage in tubing. Suprapubic DONNA drain serous. Abdominal binder in place. No rebound, rigidity, guarding. 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
--- NOTE | 2020-06-10 12:53 | Consultation ---
History of Present Illness - Reason for Consult Consult date: 06/10/20 Reason for consult: MHE Requesting physician: MICHAEL OLIVO - Chief Complaint Chief complaint: Abdominal pain Nausea and vomiting - History of Present Psychiatric Illness Per ED Provider: 64-year-old male presents to the emergency department via EMS from home with complaint of a 1 day history of right lower quadrant abdominal pain with nausea and vomiting. He has a past medical history of CHF, CVA, hyp ertension and pulmonary embolism on anticoagulation, Xarelto. Patient took some Tylenol for his symptoms with some transient relief. Patient's abdominal pain worsens when he is going from sitting to standing or when he exerts himself. He denies any fever, diarrhea, constipation, dysuria. No recent travel or sick contacts at home. His primary care physician is a Dr. Cordova at [facility] Patient is a 65-year-old with 1 child, unemployed currently on disability income lives with family -[place] male with no significant past psychiatric history with past medical history of hypertension diabetes and COPD who presented to the ED with chief complaint of abdominal pain. Patient reported remember being at home laying down and having abdominal pain and is why he was brought to the ER by his daughter and he was informed that he had an infected appendix that has ruptured and it needed to be taken out, and patient states that currently has been treated with saline water, antibiotics and some other medication for pain and remembers the name of the nurse and the tech that work with him last night and the name of the current does not take because he is written on the board. Patient states he wants to know why it is a psychiatric evaluation was recommended, remembers having an issue with the nurse yesterday says because the nurse put him in a bad mood, he reported he had discomfort in the abdomen and needed to get his pain medication which was specifically around noon but the nurse delayed response time, did not manage the IV line properly and he got angry and pissed and did not want anything to help with her due to the perceived poor care that he had received. PAST PSYCHIATRIC HISTORY Diagnoses: None reported Suicide attempts or Self-harm behavior: None reported Prior psychiatric hospitalizations: None reported Substance Abuse history: None reported Previous psychiatric medications tried: None reported Outpatient treatment: None reported PAST MEDICAL HISTORY: Family Psychiatric History: None reported or documented SOCIAL HISTORY Marital Status: Living Arrangements: with family Employment Status: retired Access to guns/weapons: None reported Education: High school History of Abuse: None reported Legal History: None reported REVIEW OF SYSTEMS Constitutional: Negative for weight loss ENT: Negative for stridor Respiratory: Negative for cough or hemoptysis All other systems reviewed and are negative MENTAL STATUS EXAMINATION General Appearance and Behavior: Age appropriate, good hygiene, wearing appropriate clothes, good eye contact, cooperative polite with questioning. Cooperation: Participating/engaged Psychomotor Behavior: unremarkable and within normal limits Mood: Good Affect and affective range: congruent with mood Thought Process: Fluent/Logical, Thought Content: Within reality, Speech: Normal volume, Regular rate and rhythm, Intellectual Functioning: Average Suicidal Ideation: Denies SI Homicidal Ideation: Denies HI Impulse Control: Unimpaired Insight and Judgment: Normal insight and judgment, Memory: Normal, Attention: Normal, Orientation: Alert, oriented, Assessment and Plan - Psychiatric problem (1) Behavior concern in adult Current Visit: Yes Status: Acute Treatment Plan Patient denies hearing voices denies hearing things patient is alert and oriented patient was able to recollect the day year month, and able to answer questions without any underlying suspicion of thought disorganization though patient could be experiencing delirium that is waxing and waning that may be worse at night, but at this time of evaluation patient does not have any acute concern for behavioral health issues. Would recommend ensuring sleep medication at night reorientation of patient during the day and continued medical manag ement MEDICATIONS: Risks, benefits and alternatives of medications discussed with the patient, questions answered and consent obtained from patient. PSYCHOTHERAPY: Supportive psychotherapy provided MEDICAL: Per primary team DELIRIUM PRECAUTIONS: Please re-orient patient frequently, keep lights on during the day, and minimize benzodiazepines and opiates as these medications could wor sen patient's confusion. STATE AUDITOR: DISPOSITION: Do Not Recommend acute inpatient psychiatric hospitalization at this time LEGAL STATUS: Voluntary FOLLOW-UP: Will sign off Thank you for the consult. Please contact with any questions and/or concerns. Medications and Allergies Allergies Allergy/AdvReac Type Severity Reaction Status Date / Time No Known Allergies Allergy Verified 09/11/14 03:17 Home Medications Medication Instructions Recorded Confirmed Last Taken Type Aspirin [Aspirin BABY CHEW TAB] 81 mg PO QDAY #30 tab.chew 09/14/14 09/29/14 09/28/14 Rx Furosemide [Lasix TAB] 20 mg PO QDAY #30 tablet 09/14/14 09/29/14 09/28/14 Rx carvediloL [Coreg] 3.125 mg PO BID #60 tablet 09/14/14 09/29/14 09/28/14 Rx lisinopriL [Zestril TAB] 2.5 mg PO QDAY #30 tablet 09/14/14 09/29/14 09/28/14 Rx Furosemide [Lasix] 40 mg PO DAILY #60 tablet 09/29/14 Unknown Rx HYDROcodone/APAP 5-325 [[place]amo 1 each PO Q6HR PRN #20 tablet 10/10/14 Unknown Rx 5-325 mg TAB] Omeprazole [PriLOSEC] 20 mg PO BID #30 cap 10/10/14 Unknown Rx Promethazine [Phenergan] 25 mg PO Q6H PRN #20 tablet 10/10/14 Unknown Rx Active Meds: Active Medications Acetaminophen (Tylenol) 650 mg PO Q4H PRN PRN Reason: Pain MILD(1-3)/Fever >100.5/LOPEZ Last Admin: 06/05/20 22:09 Dose: 650 mg Documented by: Heparin Sodium (Porcine) (Heparin) 5,000 unit SUB-Q Q8HR BART Last Admin: 06/10/20 05:03 Dose: 5,000 unit Documented by: Hydromorphone HCl (Dilaudid) 1 mg IV Q4H PRN PRN Reason: Pain , Severe (7-10) Last Admin: 06/10/20 11:39 Dose: 1 mg Documented by: Hydromorphone HCl (Dilaudid) 0.5 mg IV Q4H PRN PRN Reason: Pain, Moderate (4-6) Piperacillin Sod/Tazobactam Sod (Zosyn/Ns 4.5gm/100ml) 4.5 gm in 100 mls @ 200 mls/hr IV Q8HR BART; Protocol Last Infusion: 06/10/20 05:57 Dose: Infused Documented by: Fluconazole (Diflucan) 200 mg in 100 mls @ 100 mls/hr IV Q24HR BART Last Admin: 06/10/20 10:08 Dose: 100 mls/hr Documented by: Potassium Chloride/Dextrose/Sod Cl (D5w/0.45% Nacl/Kcl 20 Meq) 20 meq in 1,000 mls @ 75 mls/hr IV DIRECT [facility] Last Admin: 06/09/20 17:18 Dose: 75 mls/hr Documented by: Lisinopril (Zestril) 10 mg PO QDAY [facility] Last Admin: 06/10/20 10:10 Dose: Not Given Documented by: Metoprolol Tartrate (Metoprolol) 5 mg IV Q6HR PRN PRN Reason: Hypertension Last Admin: 06/09/20 11:15 Dose: 5 mg Documented by: Ondansetron HCl (Zofran) 4 mg IV Q8H PRN PRN Reason: Nausea And Vomiting Last Admin: 06/09/20 21:18 Dose: 4 mg Documented by: Pantoprazole Sodium (Protonix) 40 mg IV QDAY [facility] Last Admin: 06/10/20 10:09 Dose: Not Given Documented by: Sodium Chloride (Sodium Chloride Flush Syringe 10 Ml) 10 ml IV BID [facility] Last Admin: 06/10/20 10:10 Dose: Not Given Documented by: Sodium Chloride (Sodium Chloride Flush Syringe 10 Ml) 10 ml IV PRN PRN PRN Reason: LINE FLUSH Last Admin: 06/09/20 14:00 Dose: 10 ml Documented by: Mental Status Exam - Vital signs Last Vital Signs Temp 98.8 F 06/10/20 11:00 Pulse 60 06/10/20 11:00 Resp 18 06/10/20 11:00 BP 159/74 06/10/20 11:00 Pulse Ox 94 06/10/20 11:00 Results Result Diagrams: 06/07/20 04:57 06/09/20 04:40 Abnormal lab results 06/09/20 06/10/20 Range/Units 17:31 12:06 POC Glucose 111 H 106 H (70-105) mg/dL All other labs normal. Assessment and Plan - Psychiatric problem (1) Behavior concern in adult Current Visit: Yes Status: Acute
--- NOTE | 2020-06-10 13:33 | Progress Note ---
Assessment and Plan Cultures: Blood culture 06/05/2020 Prevotella Surgical culture 06/06/2020 E. coli pansensitive, gram-negative juju awaiting ID and DENTON A/P: 64-year-old man past medical history CHF, hypertension, pulmonary embolism, CVA presents with acute perforated appendicitis. #Perforated appendicitis: Status post washout by surgery. Cultures were obtained intraoperatively and are currently pending. #Prevotella bacteremia: secondary to necrotic appendicitis. #SAMUEL: Resolving Recs: -Continue Zosyn for now pending ID and DENTON of the gram-negative rods in the cultures -Continue fluconazole 200 mg every 24 hours -Plan on 5 to 7 days of antibiotics post washout for intra-abdominal pathogens, 14 days for blood pathogen -Final antibiotic selection pending identification of the gram-negative juju, I'm hoping to send with levofloxacin, metronidazole. Thank you for the consult, we will continue to follow. Robin Hathaway MD [facility], [place] O: [phone] F: [phone] Subjective Date of service: 06/10/20 Principal diagnosis: Acute Appendicitis Interval history: Afebrile, no acute change at present. Still awaiting identification of the second gram negative juju. Objective - Exam Narrative Exam: Physical Exam: Constitutional: Alert, cooperative. No acute distress, obese. NGT Head, Ears, Nose: Normocephalic, atraumatic. Eyes: Conjunctivae/corneas clear. Neck: Supple, no meningeal signs Oral: dentition fair, no thrush Cardiovascular: S1, S2 normal. Respiratory: Good air entry, clear to auscultation bilaterally GI: Incisional wound VAC in place, expected tenderness postoperatively. Musculoskeletal: No pedal edema, no cyanosis. Skin: No rash or abscess Hem/Lymphatic: No palpable cervical or supraclavicular nodes. No lymphangitis Psych: Mood ok. Affect normal Neurological: Awake, alert, oriented. No gross abnormality - Constitutional Vitals: Vital Signs Temp Pulse Resp BP Pulse Ox 98.8 F 60 18 159/74 94 06/10/20 11:00 06/10/20 11:00 06/10/20 11:00 06/10/20 11:00 06/10/20 11:00 Temperature -Last 24 Hours Temperature 98.8 F Temperature 98.7 F Temperature 98.4 F Temperature 98.3 F Temperature 99.0 F Temperature 98.4 F - Labs CBC & Chem 7: 06/07/20 04:57 06/09/20 04:40 Labs: Abnormal lab results 06/09/20 06/10/20 Range/Units 17:31 12:06 POC Glucose 111 H 106 H (70-105) mg/dL
--- NOTE | 2020-06-10 20:34 | Progress Note ---
Assessment and Plan Assessment and plan: --Hypophosphatemia; IV K-Phos, closely monitor electrolytes --Acute appendicitis with localized perforation/abscess: s/p Diagnostic laparoroscopy, converted to exploratory laparotomy, appendectomy, peritoneal lavage, placement of incisional wound vac, postop care per surgery NG tube removed, advance to full liquids Tolerating well, ambulated with physical therapy -IV fluids, pain medications, supportive care --Sepsis due to acute perforated appendicitis. Fever, leukocytosis, tachycardia, perforated acute appendicitis. -Continue Zosyn, per ID follow cultures. --Hypertension; moderate control Continue current antihypertensives and as needed medications --Acute kidney injury; not present on admission Due to vasomotor nephropathy, dehydration Monitor renal function, avoid nephrotoxins, IV hydration Renal function back to baseline normal range --Ongoing tobacco use; smoking cessation counseling Advised nicotine patch --Chronic systolic congestive heart failure; ejection fraction 25% Resume home anti failure medications, input output monitoring Cardiology consult if needed --Obesity; BMI 34.3 Patient needs weight reduction when medically stable --DVT prophylaxis;Heparin subcu[hold Xarelto\ We will closely monitor the patient and adjust management as needed Follow surgery and postop recommendations Plan of care reviewed with the patient and his nurse. History Interval history: I have seen and examined the patient at the bedside Patient feels better tolerating full liquids No nausea vomiting Vital signs noted Hospitalist Physical - Constitutional Vitals: Temp Pulse Resp BP Pulse Ox 98.2 F 53 L 18 168/83 96 06/10/20 19:38 06/10/20 19:38 06/10/20 19:38 06/10/20 19:38 06/10/20 19:38 General appearance: Present: no acute distress, well-nourished, obese - EENT Eyes: Present: PERRL, EOM intact - Neck Neck: Present: supple, normal ROM - Respiratory Respiratory effort: normal Respiratory: bilateral: diminished, negative: rales, rhonchi, wheezing - Cardiovascular Rhythm: regular Heart Sounds: Present: S1 & S2 - Extremities Extremities: no ischemia, No edema - Abdominal General gastrointestinal: soft, non-tender, non-distended, normal bowel sounds - Integumentary Integumentary: Present: clear, warm - Psychiatric Psychiatric: appropriate mood/affect, cooperative - Neurologic Neurologic: moves all extremities Results - Labs CBC & Chem 7: 06/07/20 04:57 06/09/20 04:40 Labs: Laboratory Last Values WBC 9.8 K/mm3 (4.5-11.0) 06/07/20 04:57 RBC 4.15 M/mm3 (3.65-5.03) 06/07/20 04:57 Hgb 13.0 gm/dl (11.8-15.2) 06/07/20 04:57 Hct 37.4 % (35.5-45.6) 06/07/20 04:57 MCV 90 fl (84-94) 06/07/20 04:57 MCH 31 pg (28-32) 06/07/20 04:57 MCHC 35 % (32-34) H 06/07/20 04:57 RDW 15.3 % (13.2-15.2) H 06/07/20 04:57 Plt Count 161 K/mm3 (140-440) 06/07/20 04:57 Lymph % (Auto) 6.6 % (13.4-35.0) L 06/07/20 04:57 Union % (Auto) 10.7 % (0.0-7.3) H 06/07/20 04:57 Eos % (Auto) 0.0 % (0.0-4.3) 06/07/20 04:57 Baso % (Auto) 0.1 % (0.0-1.8) 06/07/20 04:57 Lymph # (Auto) 0.6 K/mm3 (1.2-5.4) L 06/07/20 04:57 Union # (Auto) 1.1 K/mm3 (0.0-0.8) H 06/07/20 04:57 Eos # (Auto) 0.0 K/mm3 (0.0-0.4) 06/07/20 04:57 Baso # (Auto) 0.0 K/mm3 (0.0-0.1) 06/07/20 04:57 Seg Neutrophils % 82.6 % (40.0-70.0) H 06/07/20 04:57 Seg Neutrophils # 8.1 K/mm3 (1.8-7.7) H 06/07/20 04:57 PT 18.4 Sec. (12.2-14.9) H 06/06/20 04:43 INR 1.50 (0.87-1.13) H 06/06/20 04:43 Sodium 144 mmol/L (137-145) 06/09/20 04:40 Potassium 3.7 mmol/L (3.6-5.0) 06/09/20 04:40 Chloride 108.5 mmol/L (98-107) H 06/09/20 04:40 Carbon Dioxide 25 mmol/L (22-30) 06/09/20 04:40 Anion Gap 14 mmol/L 06/09/20 04:40 BUN 17 mg/dL (9-20) 06/09/20 04:40 Creatinine 0.9 mg/dL (0.8-1.3) 06/09/20 04:40 Estimated GFR > 60 ml/min 06/09/20 04:40 BUN/Creatinine Ratio 19 % 06/09/20 04:40 Glucose 112 mg/dL (75-100) H 06/09/20 04:40 POC Glucose 99 mg/dL (70-105) 06/10/20 16:37 Calcium 8.3 mg/dL (8.4-10.2) L 06/09/20 04:40 Phosphorus 2.00 mg/dL (2.5-4.5) L 06/09/20 04:40 Magnesium 2.10 mg/dL (1.7-2.3) 06/09/20 04:40 Total Bilirubin 1.10 mg/dL (0.1-1.2) 06/04/20 21:35 AST 12 units/L (5-40) 06/04/20 21:35 ALT 15 units/L (7-56) 06/04/20 21:35 Alkaline Phosphatase 81 units/L (35-129) 06/04/20 21:35 Total Protein 7.9 g/dL (6.3-8.2) 06/04/20 21:35 Albumin 4.1 g/dL (3.9-5) 06/04/20 21:35 Albumin/Globulin Ratio 1.1 % 06/04/20 21:35 Lipase 16 units/L (13-60) 06/04/20 21:35 Urine Color Yellow (Yellow) 06/05/20 02:00 Urine Turbidity Clear (Clear) 06/05/20 02:00 Urine pH 5.0 (5.0-7.0) 06/05/20 02:00 Ur Specific [place] > 1.059 (1.003-1.030) H 06/05/20 02:00 Urine Protein 30 mg/dl mg/dL (Negative) 06/05/20 02:00 Urine Glucose (UA) Neg mg/dL (Negative) 06/05/20 02:00 Urine Ketones Tr mg/dL (Negative) 06/05/20 02:00 Urine Blood Mod (Negative) 06/05/20 02:00 Urine Nitrite Neg (Negative) 06/05/20 02:00 Urine Bilirubin Neg (Negative) 06/05/20 02:00 Urine Urobilinogen 4.0 mg/dL (<2.0) 06/05/20 02:00 Ur Leukocyte Esterase Neg (Negative) 06/05/20 02:00 Urine WBC (Auto) 3.0 /HPF (0.0-6.0) 06/05/20 02:00 Urine RBC (Auto) 9.0 /HPF (0.0-6.0) 06/05/20 02:00 U Epithel Cells (Auto) < 1.0 /HPF (0-13.0) 06/05/20 02:00 Urine Mucus 1+ /HPF 06/05/20 02:00 Microbiology: Microbiology 06/06/20 13:20 Abdomen Anaerobic Culture - Final 06/05/20 00:27 Peripheral/Venous Blood Culture - Final NO GROWTH AFTER 5 DAYS - Diagnostic Impressions Diagnostic Impressions: Echocardiogram 06/05/20 11:49 Transthoracic Echocardiogram Indication: Syncope BP: 110/78 HR: 90 Conclusions *Global left ventricular systolic function is severely decreased. *The estimated ejection fraction is 15-20%. *There is no evidence of aortic regurgitation. *There is mild mitral regurgitation. *There is trace tricuspid regurgitation. *The right ventricular systolic pressure is calculated at 16 mmHg. *The right ventricular chamber size and systolic function are within normal limits. Findings Left Ventricle: The left ventricular chamber size is severely dilated. Mild concentric left ventricular hypertrophy is observed. Global left ventricular systolic function is severely decreased. The estimated ejection fraction is 15-20%. Abnormal left ventricular diastolic filling is observed, consistent with impaired relaxation. Left Atrium: The left atrial chamber size is normal. Right Ventricle: The right ventricular chamber size and systolic function are within normal limits. The right ventricular cavity size is normal. Right Atrium: The right atrial cavity size is normal. Aortic Valve: The aortic valve leaflets are mildly thickened. There is no evidence of aortic regurgitation. Mitral Valve: There is mitral annular calcification. The mitral valve leaflets are mildly thickened. There is mild mitral regurgitation. Tricuspid Valve: The tricuspid valve leaflets are normal. There is trace tricuspid regurgitation. The right ventricular systolic pressure is calculated at 16 mmHg. Pulmonic Valve: The pulmonic valve appears normal. Pericardium: There is no pericardial effusion. Aorta: The aorta appears normal. Venous: The inferior vena cava is not visualized. Measurements Chambers 2D Name Value Normal Range IVSd (2D) 1.16 cm (0.6 - 1.1) LVPWd (2D) 1.22 cm (0.6 - 1.1) LVIDd (2D) 6.83 cm (3.7 - 5.6) LVIDs (2D) 6.28 cm (2 - 3.8) LV FS (2D) 8.03 % - EF Teichholz (2D) 17.3 % - Ao root diameter (2D) 3.46 cm (2 - 3.7) Volumes/Mass Name Value Normal Range LA ESV SP 4CH (A/L) 31.49 ml - LA ESV SP 2CH (A/L) 43.34 ml - LA ESV BP (A/L) 37.57 ml - LA ESV BP (A/L) index 15.27 ml/m2 - LA ESV SP 4CH (MOD) 27.19 ml - LA ESV SP 2CH (MOD) 41.47 ml - LA ESV BP (MOD) 33.9 ml - LA ESV BP (MOD) index 13.78 ml/m2 - Diastolic/Systolic Function Name Value Normal Range MV E-wave Vmax 0.52 m/sec - MV deceleration time 169.73 msec - MV A-wave Vmax 0.62 m/sec - MV E:A ratio 0.84 ratio - Aortic Valve Name Value Normal Range AV Vmax 1.37 m/sec - AV VTI 24.09 cm - AV peak gradient 7.48 mmHg - AV mean gradient 3.85 mmHg - LVOT diameter 2.11 cm - LVOT Vmax 1.07 m/sec - LVOT VTI 20.55 cm - LVOT peak gradient 4.57 mmHg - LVOT mean gradient 2.43 mmHg - SV LVOT 71.7 ml - MARGARETTE (continuity Vmax) 2.73 cm2 - MARGARETTE (continuity VTI) 2.98 cm2 - Mitral Valve Name Value Normal Range MR Vmax 4.81 m/sec - Tricuspid Valve Name Value Normal Range TR Vmax 1.79 m/sec - TR peak gradient 13 mmHg - RAP 3 mmHg - RVSP 16 mmHg - Pulmonic Valve/Qp:Qs Name Value Normal Range PV Vmax 0.87 m/sec - PV peak gradient 3.06 mmHg - PV acceleration time 95.15 msec - Saini/IV: Voiding Method Urinal IV Catheter Type [Left Forearm Peripheral IV ] IV Catheter Type [Right Hand] Peripheral IV Active Medications - Current Medications Current Medications: Generic Name Dose Route Start Last Admin Trade Name Freq PRN Reason Stop Dose Admin Acetaminophen 650 mg 06/05/20 01:13 06/05/20 22:09 Tylenol PO 650 mg Q4H PRN Administration Pain MILD(1-3)/Fever >100.5/LOPEZ Carvedilol 3.125 mg 06/10/20 22:00 Coreg PO BID BART Heparin Sodium (Porcine) 5,000 unit 06/07/20 14:00 06/10/20 15:50 Heparin SUB-Q 5,000 unit Q8HR BART Administration Hydromorphone HCl 1 mg 06/06/20 14:43 06/10/20 19:51 Dilaudid IV 1 mg Q4H PRN Administration Pain , Severe (7-10) Piperacillin Sod/Tazobactam Sod 4.5 gm in 100 mls @ 200 mls/hr 06/05/20 14:00 06/10/20 15:44 Zosyn/Ns 4.5gm/100ml IV 200 mls/hr Q8HR BART Administration Protocol Fluconazole 200 mg in 100 mls @ 100 mls/hr 06/08/20 12:00 06/10/20 10:08 Diflucan IV 100 mls/hr Q24HR BART Administration Potassium Chloride/Dextrose/Sod Cl 20 meq in 1,000 mls @ 75 mls/hr 06/09/20 17:00 06/09/20 17:18 D5w/0.45% Nacl/Kcl 20 Meq IV 75 mls/hr DIRECT BART Administration Lisinopril 10 mg 06/05/20 13:00 06/10/20 10:10 Zestril PO Not Given QDAY BART Ondansetron HCl 4 mg 06/05/20 01:13 06/09/20 21:18 Zofran IV 4 mg Q8H PRN Administration Nausea And Vomiting Oxycodone/Acetaminophen 2 tab 06/10/20 13:28 Percocet 5/325 PO Q4H PRN Pain, Moderate (4-6) Pantoprazole Sodium 40 mg 06/11/20 07:30 Protonix PO QDAC BART Sodium Chloride 10 ml 06/05/20 10:00 06/10/20 10:10 Sodium Chloride Flush Syringe 10 Ml IV Not Given BID BART Sodium Chloride 10 ml 06/05/20 01:13 06/09/20 14:00 Sodium Chloride Flush Syringe 10 Ml IV 10 ml PRN PRN Administration LINE FLUSH
[2020-06-10] MEDS: D5W/0.45% NACL/KCL 20 MEQ 20 MEQ/1,000 ML BAG IV SCH (22:16)
[2020-06-10] MEDS: carvediloL 3.125 MG TAB PO SCH (22:30)
[2020-06-11] MEDS: HYDROmorphone 1 MG/1 ML INJ IV PRN ×2 (02:21→06:54)
[2020-06-11] MEDS: PIPERACIL/TAZOBACTA 4.5/NS 100 4.5 GM/100 ML VIAL IV SCH ×3 (07:01→21:17)
[2020-06-11] MEDS: HEPARIN 5,000 UNIT/1 ML VIAL SUB-Q SCH ×2 (07:01→14:57)
[2020-06-11 08:28] LABS: BUN/Creatinine Ratio 9; Blood Urea Nitrogen 9 mg/dL (9-20); Calcium 8.2 mg/dL (8.4-10.2); Hemolysis Index 7
[2020-06-11] MEDS: PANTOPRAZOLE 40 MG TAB PO SCH (09:32)
[2020-06-11] MEDS ORDERED: POTASSIUM CHLORIDE ER 20 MEQ TAB PO ONE (10:00)
[2020-06-11] MEDS: FLUCONAZOLE 200 MG 200 MG/100 ML BAG IV SCH (10:45)
[2020-06-11] MEDS: LISINOPRIL 10 MG TAB PO SCH ×2 (10:46→12:48)
[2020-06-11] MEDS: carvediloL 3.125 MG TAB PO SCH ×2 (10:52→21:15)
--- NOTE | 2020-06-11 13:53 | Progress Note ---
Assessment and Plan Cultures: Blood culture 06/05/2020 Prevotella Surgical culture 06/06/2020 E. coli pansensitive, gram-negative juju awaiting ID and DENTON A/P: 64-year-old man past medical history CHF, hypertension, pulmonary embolism, CVA presents with acute perforated appendicitis. #Perforated appendicitis: Status post washout by surgery 06/06/2020 #Prevotella bacteremia: secondary to necrotic appendicitis. #SAMUEL: Resolving Recs: -Continue Zosyn for now pending ID and DENTON of the gram-negative rods in the cultures -Continue fluconazole 200 mg every 24 hours -Okay for discharge from infectious disease perspective. Would send with levofloxacin 750 mg every 24 hours and fluconazole 200 mg every 24 hours until 06/13/2020. -Would also send with metronidazole 500 mg every 8 hours until 06/20/2020 for the Prevotella bacteremia. -Follow-up in my clinic in 1 to 2 weeks Thank you for the consult, we will continue to follow. Dr. Almeida taking over to morrow. Robin Hathaway MD [facility] O: [phone] F: [phone] Subjective Date of service: 06/11/20 Principal diagnosis: Acute Appendicitis Interval history: Afebrile, no acute change present. Still awaiting identification of secondary negative juju in culture. Objective - Exam Narrative Exam: Physical Exam: Constitutional: Alert, cooperative. No acute distress, obese. NGT Head, Ears, Nose: Normocephalic, atraumatic. Eyes: Conjunctivae/corneas clear. Neck: Supple, no meningeal signs Oral: dentition fair, no thrush Cardiovascular: S1, S2 normal. Respiratory: Good air entry, clear to auscultation bilaterally GI: Incisional wound VAC in place, expected tenderness postoperatively. + Suprapubic DONNA drain Musculoskeletal: No pedal edema, no cyanosis. Skin: No rash or abscess Hem/Lymphatic: No palpable cervical or supraclavicular nodes. No lymphangitis Psych: Mood ok. Affect normal Neurological: Awake, alert, oriented. No gross abnormality - Constitutional Vitals: Vital Signs Temp Pulse Resp BP Pulse Ox 98.2 F 70 20 149/85 95 06/11/20 12:30 06/11/20 13:06 06/11/20 13:06 06/11/20 13:06 06/11/20 13:06 Temperature -Last 24 Hours Temperature 98.2 F Temperature 98.3 F Temperature 98.3 F Temperature 98.2 F Temperature 98.9 F - Labs CBC & Chem 7: 06/07/20 04:57 06/11/20 07:55 Labs: Abnormal lab results 06/11/20 06/11/20 06/11/20 Range/Units 01:37 06:47 07:55 Potassium 3.5 L (3.6-5.0) mmol/L Carbon Dioxide 31 H (22-30) mmol/L Glucose 124 H (75-100) mg/dL POC Glucose 146 H 141 H (70-105) mg/dL Calcium 8.2 L (8.4-10.2) mg/dL 06/11/20 Range/Units 11:58 Potassium (3.6-5.0) mmol/L Carbon Dioxide (22-30) mmol/L Glucose (75-100) mg/dL POC Glucose 137 H (70-105) mg/dL Calcium (8.4-10.2) mg/dL
--- NOTE | 2020-06-11 13:53 | Progress Note ---
Assessment and Plan 64-year-old male status post diagnostic laparoroscopy, converted to exploratory laparotomy, appendectomy, peritoneal lavage, placement of incisional wound vac, POD 5 1. Perforated appendicitis with generalized peritonitis and abscess 2. Ileus 2/2 #1 3. bacteremia 2/2 #1 Bl cx - PREVOTELLA ORALIS intraabd cx - g-juju, ecoli Plan: 1. Advance to soft diet 2. DC IV fluids 3. IV abx - ID recs reviewed and appreciated. Will await final PO recommendations based on cultures 4. DVT ppx - SQH. 5. cards recs reviewed and appreciated 6. ok to restart xarelto 7. prn PO pain control 8. incentive spirometry/pulm toilet 9. OOB/ambulate/PT 10. continue incisional wound vac - await delivery to hospital 11. C/w abdominal drain as per orders- will dc before patient is discharged home 12. replace lytes as needed Thank you. Please call with questions. Evaluation and treatment of this patient was during the time of the national and state emergency arising from COVID19 coronavirus pandemic. Treatment and procedures performed meet the current and available best practice and guidelines for patient during the COVID pandemic. Subjective Date of service: 06/11/20 Narrative: Patient seen and examined. He has no acute complaints. He states that he walked in the hallway with physical therapy today. He did well with a rolling walker. No fevers or chills. Tolerating a full liquid diet. Positive flatus but no BM. Pain is well controlled. Objective Vital Signs - 12hr 06/11/20 06/11/20 06/11/20 03:59 08:10 09:00 Temperature 98.3 F Pulse Rate 64 75 Respiratory 18 17 Rate Blood Pressure 145/85 147/72 Blood Pressure [Right] O2 Sat by Pulse 94 95 94 Oximetry 06/11/20 06/11/20 06/11/20 10:46 10:52 12:30 Temperature 98.2 F Pulse Rate 71 71 71 Respiratory 19 Rate Blood Pressure 171/95 171/95 Blood Pressure 171/95 [Right] O2 Sat by Pulse 95 Oximetry 06/11/20 06/11/20 12:48 13:06 Temperature Pulse Rate 72 70 Respiratory 20 Rate Blood Pressure 171/95 149/85 Blood Pressure [Right] O2 Sat by Pulse 95 Oximetry - General physical appearance Narrative Exam: Gen.: Awake, alert, oriented 3. No apparent distress ENT: Trachea midline. No lymphadenopathy. No scleral icterus or conjunctival pallor CV: S1, S2 present Respiratory: No audible wheezes Abdomen: Soft, nondistended, nontender. Abdominal binder in place. Wound VAC in place with good seal and no leak. Serosanguineous drainage in the canister. Suprapubic DONNA drain is serous. No rebound, rigidity, guarding Extremities: No clubbing, cyanosis, edema - Labs 06/07/20 04:57 06/11/20 07:55 Diabetes panel 06/11/20 Range/Units 07:55 Sodium 142 (137-145) mmol/L Potassium 3.5 L (3.6-5.0) mmol/L Chloride 103.7 (98-107) mmol/L Carbon Dioxide 31 H (22-30) mmol/L BUN 9 (9-20) mg/dL Creatinine 1.0 (0.8-1.3) mg/dL Glucose 124 H (75-100) mg/dL Calcium 8.2 L (8.4-10.2) mg/dL Calcium panel 06/11/20 Range/Units 07:55 Calcium 8.2 L (8.4-10.2) mg/dL Pituitary panel 06/11/20 Range/Units 07:55 Sodium 142 (137-145) mmol/L Potassium 3.5 L (3.6-5.0) mmol/L Chloride 103.7 (98-107) mmol/L Carbon Dioxide 31 H (22-30) mmol/L BUN 9 (9-20) mg/dL Creatinine 1.0 (0.8-1.3) mg/dL Glucose 124 H (75-100) mg/dL Calcium 8.2 L (8.4-10.2) mg/dL Adrenal panel 06/11/20 Range/Units 07:55 Sodium 142 (137-145) mmol/L Potassium 3.5 L (3.6-5.0) mmol/L Chloride 103.7 (98-107) mmol/L Carbon Dioxide 31 H (22-30) mmol/L BUN 9 (9-20) mg/dL Creatinine 1.0 (0.8-1.3) mg/dL Glucose 124 H (75-100) mg/dL Calcium 8.2 L (8.4-10.2) mg/dL
[2020-06-11] MEDS: oxyCODONE /ACETAMINOPHEN 5-325MG TAB PO PRN ×2 (15:21→21:16)
--- NOTE | 2020-06-11 18:27 | Progress Note ---
Assessment and Plan Assessment and plan: --Hypophosphatemia; IV K-Phos, closely monitor electrolytes --Acute appendicitis with localized perforation/abscess: s/p Diagnostic laparoroscopy, converted to exploratory laparotomy, appendectomy, peritoneal lavage, placement of incisional wound vac, postop care per surgery NG tube removed, full liquids today advance to soft diet per surgery Tolerating well, ambulated with physical therapy Wound VAC in place Resumed wound VAC --Sepsis due to acute perforated appendicitis./Surgical cultures positive for E. coli Fever, leukocytosis, tachycardia, perforated acute appendicitis --Prevotella bacteremia; management per ID. --Continue Zosyn, Diflucan per ID follow cultures. Transition to oral antibiotics and stable for discharge --Hypertension; moderate control Continue current antihypertensives and as needed medications --Acute kidney injury;now resolved Not present during admission due to vasomotor nephropathy, dehydration Monitor renal function, avoid nephrotoxins, IV hydration Renal function back to baseline normal range --Ongoing tobacco use; smoking cessation counseling Advised nicotine patch --Chronic systolic congestive heart failure; ejection fraction 25% Resume home anti failure medications, input output monitoring Cardiology consult if needed --Obesity; BMI 34.3 Patient needs weight reduction when medically stable --DVT prophylaxis; Xarelto resumed Will monitor closely and adjust management as needed Surgery recommendations noted Possible discharge in 1 to 2 days if stable Plan of care discussed with the patient and his nurse History Interval history: I have seen and examined the patient at the bedside Patient's chart and medications reviewed Patient feels slightly better tolerating full liquid diet Surgery advance to soft No new complaints Vital signs noted Hospitalist Physical - Constitutional Vitals: Temp Pulse Resp BP Pulse Ox 98.7 F 66 20 162/97 96 06/11/20 16:34 06/11/20 16:34 06/11/20 16:34 06/11/20 16:34 06/11/20 16:34 General appearance: Present: no acute distress, well-nourished, obese - EENT Eyes: Present: PERRL, EOM intact - Neck Neck: Present: supple, normal ROM - Respiratory Respiratory effort: normal Respiratory: bilateral: diminished, negative: rales, rhonchi, wheezing - Cardiovascular Rhythm: regular Heart Sounds: Present: S1 & S2 - Extremities Extremities: no ischemia, No edema - Abdominal General gastrointestinal: soft, non-tender, non-distended, normal bowel sounds - Integumentary Integumentary: Present: clear, warm - Psychiatric Psychiatric: appropriate mood/affect, cooperative - Neurologic Neurologic: moves all extremities Results - Labs CBC & Chem 7: 06/07/20 04:57 06/11/20 07:55 Labs: Laboratory Last Values WBC 9.8 K/mm3 (4.5-11.0) 06/07/20 04:57 RBC 4.15 M/mm3 (3.65-5.03) 06/07/20 04:57 Hgb 13.0 gm/dl (11.8-15.2) 06/07/20 04:57 Hct 37.4 % (35.5-45.6) 06/07/20 04:57 MCV 90 fl (84-94) 06/07/20 04:57 MCH 31 pg (28-32) 06/07/20 04:57 MCHC 35 % (32-34) H 06/07/20 04:57 RDW 15.3 % (13.2-15.2) H 06/07/20 04:57 Plt Count 161 K/mm3 (140-440) 06/07/20 04:57 Lymph % (Auto) 6.6 % (13.4-35.0) L 06/07/20 04:57 Glynn % (Auto) 10.7 % (0.0-7.3) H 06/07/20 04:57 Eos % (Auto) 0.0 % (0.0-4.3) 06/07/20 04:57 Baso % (Auto) 0.1 % (0.0-1.8) 06/07/20 04:57 Lymph # (Auto) 0.6 K/mm3 (1.2-5.4) L 06/07/20 04:57 Glynn # (Auto) 1.1 K/mm3 (0.0-0.8) H 06/07/20 04:57 Eos # (Auto) 0.0 K/mm3 (0.0-0.4) 06/07/20 04:57 Baso # (Auto) 0.0 K/mm3 (0.0-0.1) 06/07/20 04:57 Seg Neutrophils % 82.6 % (40.0-70.0) H 06/07/20 04:57 Seg Neutrophils # 8.1 K/mm3 (1.8-7.7) H 06/07/20 04:57 PT 18.4 Sec. (12.2-14.9) H 06/06/20 04:43 INR 1.50 (0.87-1.13) H 06/06/20 04:43 Sodium 142 mmol/L (137-145) 06/11/20 07:55 Potassium 3.5 mmol/L (3.6-5.0) L 06/11/20 07:55 Chloride 103.7 mmol/L (98-107) 06/11/20 07:55 Carbon Dioxide 31 mmol/L (22-30) H 06/11/20 07:55 Anion Gap 11 mmol/L 06/11/20 07:55 BUN 9 mg/dL (9-20) 06/11/20 07:55 Creatinine 1.0 mg/dL (0.8-1.3) 06/11/20 07:55 Estimated GFR > 60 ml/min 06/11/20 07:55 BUN/Creatinine Ratio 9 % 06/11/20 07:55 Glucose 124 mg/dL (75-100) H 06/11/20 07:55 POC Glucose 137 mg/dL (70-105) H 06/11/20 11:58 Calcium 8.2 mg/dL (8.4-10.2) L 06/11/20 07:55 Phosphorus 2.00 mg/dL (2.5-4.5) L 06/09/20 04:40 Magnesium 2.10 mg/dL (1.7-2.3) 06/09/20 04:40 Total Bilirubin 1.10 mg/dL (0.1-1.2) 06/04/20 21:35 AST 12 units/L (5-40) 06/04/20 21:35 ALT 15 units/L (7-56) 06/04/20 21:35 Alkaline Phosphatase 81 units/L (35-129) 06/04/20 21:35 Total Protein 7.9 g/dL (6.3-8.2) 06/04/20 21:35 Albumin 4.1 g/dL (3.9-5) 06/04/20 21:35 Albumin/Globulin Ratio 1.1 % 06/04/20 21:35 Lipase 16 units/L (13-60) 06/04/20 21:35 Urine Color Yellow (Yellow) 06/05/20 02:00 Urine Turbidity Clear (Clear) 06/05/20 02:00 Urine pH 5.0 (5.0-7.0) 06/05/20 02:00 Ur Specific [place] > 1.059 (1.003-1.030) H 06/05/20 02:00 Urine Protein 30 mg/dl mg/dL (Negative) 06/05/20 02:00 Urine Glucose (UA) Neg mg/dL (Negative) 06/05/20 02:00 Urine Ketones Tr mg/dL (Negative) 06/05/20 02:00 Urine Blood Mod (Negative) 06/05/20 02:00 Urine Nitrite Neg (Negative) 06/05/20 02:00 Urine Bilirubin Neg (Negative) 06/05/20 02:00 Urine Urobilinogen 4.0 mg/dL (<2.0) 06/05/20 02:00 Ur Leukocyte Esterase Neg (Negative) 06/05/20 02:00 Urine WBC (Auto) 3.0 /HPF (0.0-6.0) 06/05/20 02:00 Urine RBC (Auto) 9.0 /HPF (0.0-6.0) 06/05/20 02:00 U Epithel Cells (Auto) < 1.0 /HPF (0-13.0) 06/05/20 02:00 Urine Mucus 1+ /HPF 06/05/20 02:00 Microbiology: Microbiology 06/06/20 13:20 Abdomen Surgical Culture - Final Escherichia Coli - Diagnostic Impressions Diagnostic Impressions: Echocardiogram 06/05/20 11:49 Transthoracic Echocardiogram Indication: Syncope BP: 110/78 HR: 90 Conclusions *Global left ventricular systolic function is severely decreased. *The estimated ejection fraction is 15-20%. *There is no evidence of aortic regurgitation. *There is mild mitral regurgitation. *There is trace tricuspid regurgitation. *The right ventricular systolic pressure is calculated at 16 mmHg. *The right ventricular chamber size and systolic function are within normal limits. Findings Left Ventricle: The left ventricular chamber size is severely dilated. Mild concentric left ventricular hypertrophy is observed. Global left ventricular systolic function is severely decreased. The estimated ejection fraction is 15-20%. Abnormal left ventricular diastolic filling is observed, consistent with impaired relaxation. Left Atrium: The left atrial chamber size is normal. Right Ventricle: The right ventricular chamber size and systolic function are within normal limits. The right ventricular cavity size is normal. Right Atrium: The right atrial cavity size is normal. Aortic Valve: The aortic valve leaflets are mildly thickened. There is no evidence of aortic regurgitation. Mitral Valve: There is mitral annular calcification. The mitral valve leaflets are mildly thickened. There is mild mitral regurgitation. Tricuspid Valve: The tricuspid valve leaflets are normal. There is trace tricuspid regurgitation. The right ventricular systolic pressure is calculated at 16 mmHg. Pulmonic Valve: The pulmonic valve appears normal. Pericardium: There is no pericardial effusion. Aorta: The aorta appears normal. Venous: The inferior vena cava is not visualized. Measurements Chambers 2D Name Value Normal Range IVSd (2D) 1.16 cm (0.6 - 1.1) LVPWd (2D) 1.22 cm (0.6 - 1.1) LVIDd (2D) 6.83 cm (3.7 - 5.6) LVIDs (2D) 6.28 cm (2 - 3.8) LV FS (2D) 8.03 % - EF Teichholz (2D) 17.3 % - Ao root diameter (2D) 3.46 cm (2 - 3.7) Volumes/Mass Name Value Normal Range LA ESV SP 4CH (A/L) 31.49 ml - LA ESV SP 2CH (A/L) 43.34 ml - LA ESV BP (A/L) 37.57 ml - LA ESV BP (A/L) index 15.27 ml/m2 - LA ESV SP 4CH (MOD) 27.19 ml - LA ESV SP 2CH (MOD) 41.47 ml - LA ESV BP (MOD) 33.9 ml - LA ESV BP (MOD) index 13.78 ml/m2 - Diastolic/Systolic Function Name Value Normal Range MV E-wave Vmax 0.52 m/sec - MV deceleration time 169.73 msec - MV A-wave Vmax 0.62 m/sec - MV E:A ratio 0.84 ratio - Aortic Valve Name Value Normal Range AV Vmax 1.37 m/sec - AV VTI 24.09 cm - AV peak gradient 7.48 mmHg - AV mean gradient 3.85 mmHg - LVOT diameter 2.11 cm - LVOT Vmax 1.07 m/sec - LVOT VTI 20.55 cm - LVOT peak gradient 4.57 mmHg - LVOT mean gradient 2.43 mmHg - SV LVOT 71.7 ml - MARGARETTE (continuity Vmax) 2.73 cm2 - MARGARETTE (continuity VTI) 2.98 cm2 - Mitral Valve Name Value Normal Range MR Vmax 4.81 m/sec - Tricuspid Valve Name Value Normal Range TR Vmax 1.79 m/sec - TR peak gradient 13 mmHg - RAP 3 mmHg - RVSP 16 mmHg - Pulmonic Valve/Qp:Qs Name Value Normal Range PV Vmax 0.87 m/sec - PV peak gradient 3.06 mmHg - PV acceleration time 95.15 msec - Saini/IV: Voiding Method Urinal IV Catheter Type [Left Forearm Peripheral IV ] IV Catheter Type [Right Hand] Peripheral IV Active Medications - Current Medications Current Medications: Generic Name Dose Route Start Last Admin Trade Name Jeevanq PRN Reason Stop Dose Admin Acetaminophen 650 mg 06/05/20 01:13 06/05/20 22:09 Tylenol PO 650 mg Q4H PRN Administration Pain MILD(1-3)/Fever >100.5/LOPEZ Carvedilol 3.125 mg 06/10/20 22:00 06/11/20 10:52 Coreg PO 3.125 mg BID BART Administration Heparin Sodium (Porcine) 5,000 unit 06/07/20 14:00 06/11/20 14:57 Heparin SUB-Q 5,000 unit Q8HR BART Administration Hydromorphone HCl 1 mg 06/06/20 14:43 06/11/20 06:54 Dilaudid IV 1 mg Q4H PRN Administration Pain , Severe (7-10) Piperacillin Sod/Tazobactam Sod 4.5 gm in 100 mls @ 200 mls/hr 06/05/20 14:00 06/11/20 14:58 Zosyn/Ns 4.5gm/100ml IV 200 mls/hr Q8HR BART Administration Protocol Fluconazole 200 mg in 100 mls @ 100 mls/hr 06/08/20 12:00 06/11/20 10:45 Diflucan IV 100 mls/hr Q24HR BART Administration Lisinopril 10 mg 06/05/20 13:00 06/11/20 12:48 Zestril PO Not Given QDAY BART Ondansetron HCl 4 mg 06/05/20 01:13 06/09/20 21:18 Zofran IV 4 mg Q8H PRN Administration Nausea And Vomiting Oxycodone/Acetaminophen 2 tab 06/10/20 13:28 06/11/20 15:21 Percocet 5/325 PO 2 tab Q4H PRN Administration Pain, Moderate (4-6) Pantoprazole Sodium 40 mg 06/11/20 07:30 06/11/20 09:32 Protonix PO 40 mg QDAC BART Administration Sodium Chloride 10 ml 06/05/20 10:00 06/11/20 11:08 Sodium Chloride Flush Syringe 10 Ml IV 10 ml BID BART Administration Sodium Chloride 10 ml 06/05/20 01:13 06/09/20 14:00 Sodium Chloride Flush Syringe 10 Ml IV 10 ml PRN PRN Administration LINE FLUSH Nutrition/Malnutrition Assess - Dietary Evaluation Nutrition/Malnutrition Findings: Nutrition Notes Start: 06/11/20 12:58 Freq: Status: Active Protocol: Document 06/11/20 12:58 RIANNA (Rec: 06/11/20 13:06 RIANNA [id number]) Co-Sign 06/11/20 12:58 LM Nutrition Notes Need for Assessment generated from: LOS Initial or Follow up Assessment Current Diagnosis Hypertension,Heart Failure, Stroke Other Pertinent Diagnosis perforated appendicitis s/p appendectomy Current Diet Full liquid Labs/Tests K 3.5 Pertinent Medications Reviewed Height 6 ft 2 in Weight 125.344 kg [place] Body Weight (kg) 86.36 BMI 35.4 Intake Prior to Admission Good Weight Status Obese Subjective/Other Information Screened for LOS. Pt reports consuming 100% intakes. Pt will begin on GI soft with dinner tonight. Percent of energy/protein needs met: 51%/28% Burn Absent Trauma Absent GI Symptoms None Food Allergy No Current % PO Good (75-100%) Minimum of two criteria No physical signs of malnutrition #2 Nutrition Diagnosis Increased nutrient needs ( specify in comment below) Comments: protein Etiology wound healing As Evidenced by Signs and Symptoms surgical wound #1 Nutrition Diagnosis Inadequate energy intake Etiology appendicitis s/p appendectomy As Evidenced by Signs and Symptoms 100% full liquid diet meets 51 % energy needs and 28% protein needs Is patient on ventilator? No Is Patient Ambulatory and/or Out of Bed Yes REE-([place] Jeor-ambulatory/OOB) [ 2760.147 [id number]] Kcal/Kg value to use for calculation 18 Approximate Energy Requirements Using 2256 kcal/Kg Calculation Used for Recommendations Kcal/kg Additional Notes Pro: 132-159 g (1.25-1.5 k/kg AdjBW, 105.9 kg) Fluid: 1 ml/kcal Nutrition Intervention Change Diet Order: Diet advancement as medically able Goal #1 Meet at least 75% energy and protein needs Anticipated Discharge Needs: Unable to determine at this time Follow-Up By: 06/15/20 Additional Comments F/U for diet advancement and intakes
[2020-06-11] MEDS: RIVAROXABAN 10 MG TAB PO SCH (21:15)
[2020-06-12] MEDS: HYDROmorphone 1 MG/1 ML INJ IV PRN ×2 (01:06→11:57)
[2020-06-12] MEDS: PIPERACIL/TAZOBACTA 4.5/NS 100 4.5 GM/100 ML VIAL IV SCH ×2 (06:52→14:05)
[2020-06-12] MEDS: oxyCODONE /ACETAMINOPHEN 5-325MG TAB PO PRN ×4 (06:53→22:58)
[2020-06-12] MEDS: PANTOPRAZOLE 40 MG TAB PO SCH (08:29)
[2020-06-12] MEDS: FUROSEMIDE 40 MG TAB PO SCH (11:11)
[2020-06-12] MEDS: carvediloL 3.125 MG TAB PO SCH ×2 (11:35→22:59)
[2020-06-12] MEDS: LISINOPRIL 10 MG TAB PO SCH (12:26)
[2020-06-12] MEDS: RIVAROXABAN 10 MG TAB PO SCH (15:26)
[2020-06-12] MEDS: FLUCONAZOLE 200 MG 200 MG/100 ML BAG IV SCH (15:29)
--- NOTE | 2020-06-12 15:44 | Progress Note ---
Assessment and Plan Assessment and plan: --General anxiety; patient is very anxious, evaluated by psych during this admission no recommendations Patient's daughter reports that patient is getting anxious intermittently, discussed with Dr. Muñoz We will start low-dose Xanax 0.253 times a day as needed for anxiety. And try to reconsult psych tomorrow. --Acute appendicitis with localized perforation/abscess: s/p Diagnostic laparoroscopy, converted to exploratory laparotomy, appendectomy, peritoneal lavage, placement of incisional wound vac, postop care per surgery NG tube removed, full liquids advance to soft diet per surgery Tolerating well, ambulated with physical therapy Wound VAC in place, Awaiting home wound VAC to arrive prior to DC Case management, set up home health . --Sepsis due to acute perforated appendicitis./Surgical cultures positive for E. coli Fever, leukocytosis, tachycardia, perforated acute appendicitis. ID recommend to Continue Zosyn, Diflucan per ID follow cultures. Stop date 06/13/2020 At discharge , Flagyl 500 ,3 times a day stop date 06/20/2020 --Hypertension; moderate control Continue current antihypertensives and as needed medications --Acute kidney injury; not present on admission/resolved Due to vasomotor nephropathy, dehydration Monitor renal function, avoid nephrotoxins, IV hydration Renal function back to baseline normal range --Ongoing tobacco use; smoking cessation counseling Advised nicotine patch --Chronic systolic congestive heart failure; ejection fraction 25% Resume home anti failure medications, input output monitoring Patient will follow with 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 Awaiting home wound VAC to be sent to the patient's room Plan of care reviewed with the patient and his nurse. History Interval history: I have seen and examined the patient at the bedside this afternoon Patient's chart and medications reviewed Patient is slightly anxious, Tolerating GI soft diet Vital signs reviewed Hospitalist Physical - Constitutional Vitals: Temp Pulse Resp BP Pulse Ox 98.2 F 61 20 175/94 95 06/12/20 11:07 06/12/20 11:07 06/12/20 11:07 06/12/20 11:07 06/12/20 11:07 General appearance: Present: no acute distress, well-nourished, obese, other (Slightly anxious) - EENT Eyes: Present: PERRL, EOM intact - Neck Neck: Present: supple, normal ROM - Respiratory Respiratory effort: normal Respiratory: bilateral: diminished, negative: rales, rhonchi, wheezing - Cardiovascular Rhythm: regular Heart Sounds: Present: S1 & S2 - Extremities Extremities: no ischemia, No edema - Abdominal General gastrointestinal: soft, non-tender, non-distended, normal bowel sounds, other (Wound VAC in place) - Integumentary Integumentary: Present: clear, warm - Psychiatric Psychiatric: appropriate mood/affect, other (Sometimes anxious) - Neurologic Neurologic: moves all extremities Results - Labs CBC & Chem 7: 06/07/20 04:57 06/11/20 07:55 Labs: Laboratory Last Values WBC 9.8 K/mm3 (4.5-11.0) 06/07/20 04:57 RBC 4.15 M/mm3 (3.65-5.03) 06/07/20 04:57 Hgb 13.0 gm/dl (11.8-15.2) 06/07/20 04:57 Hct 37.4 % (35.5-45.6) 06/07/20 04:57 MCV 90 fl (84-94) 06/07/20 04:57 MCH 31 pg (28-32) 06/07/20 04:57 MCHC 35 % (32-34) H 06/07/20 04:57 RDW 15.3 % (13.2-15.2) H 06/07/20 04:57 Plt Count 161 K/mm3 (140-440) 06/07/20 04:57 Lymph % (Auto) 6.6 % (13.4-35.0) L 06/07/20 04:57 [place] % (Auto) 10.7 % (0.0-7.3) H 06/07/20 04:57 Eos % (Auto) 0.0 % (0.0-4.3) 06/07/20 04:57 Baso % (Auto) 0.1 % (0.0-1.8) 06/07/20 04:57 Lymph # (Auto) 0.6 K/mm3 (1.2-5.4) L 06/07/20 04:57 [place] # (Auto) 1.1 K/mm3 (0.0-0.8) H 06/07/20 04:57 Eos # (Auto) 0.0 K/mm3 (0.0-0.4) 06/07/20 04:57 Baso # (Auto) 0.0 K/mm3 (0.0-0.1) 06/07/20 04:57 Seg Neutrophils % 82.6 % (40.0-70.0) H 06/07/20 04:57 Seg Neutrophils # 8.1 K/mm3 (1.8-7.7) H 06/07/20 04:57 PT 18.4 Sec. (12.2-14.9) H 06/06/20 04:43 INR 1.50 (0.87-1.13) H 06/06/20 04:43 Sodium 142 mmol/L (137-145) 06/11/20 07:55 Potassium 3.5 mmol/L (3.6-5.0) L 06/11/20 07:55 Chloride 103.7 mmol/L (98-107) 06/11/20 07:55 Carbon Dioxide 31 mmol/L (22-30) H 06/11/20 07:55 Anion Gap 11 mmol/L 06/11/20 07:55 BUN 9 mg/dL (9-20) 06/11/20 07:55 Creatinine 1.0 mg/dL (0.8-1.3) 06/11/20 07:55 Estimated GFR > 60 ml/min 06/11/20 07:55 BUN/Creatinine Ratio 9 % 06/11/20 07:55 Glucose 124 mg/dL (75-100) H 06/11/20 07:55 POC Glucose 114 mg/dL (70-105) H 06/12/20 11:25 Calcium 8.2 mg/dL (8.4-10.2) L 06/11/20 07:55 Phosphorus 2.00 mg/dL (2.5-4.5) L 06/09/20 04:40 Magnesium 2.10 mg/dL (1.7-2.3) 06/09/20 04:40 Total Bilirubin 1.10 mg/dL (0.1-1.2) 06/04/20 21:35 AST 12 units/L (5-40) 06/04/20 21:35 ALT 15 units/L (7-56) 06/04/20 21:35 Alkaline Phosphatase 81 units/L (35-129) 06/04/20 21:35 Total Protein 7.9 g/dL (6.3-8.2) 06/04/20 21:35 Albumin 4.1 g/dL (3.9-5) 06/04/20 21:35 Albumin/Globulin Ratio 1.1 % 06/04/20 21:35 Lipase 16 units/L (13-60) 06/04/20 21:35 Urine Color Yellow (Yellow) 06/05/20 02:00 Urine Turbidity Clear (Clear) 06/05/20 02:00 Urine pH 5.0 (5.0-7.0) 06/05/20 02:00 Ur Specific [place] > 1.059 (1.003-1.030) H 06/05/20 02:00 Urine Protein 30 mg/dl mg/dL (Negative) 06/05/20 02:00 Urine Glucose (UA) Neg mg/dL (Negative) 06/05/20 02:00 Urine Ketones Tr mg/dL (Negative) 06/05/20 02:00 Urine Blood Mod (Negative) 06/05/20 02:00 Urine Nitrite Neg (Negative) 06/05/20 02:00 Urine Bilirubin Neg (Negative) 06/05/20 02:00 Urine Urobilinogen 4.0 mg/dL (<2.0) 06/05/20 02:00 Ur Leukocyte Esterase Neg (Negative) 06/05/20 02:00 Urine WBC (Auto) 3.0 /HPF (0.0-6.0) 06/05/20 02:00 Urine RBC (Auto) 9.0 /HPF (0.0-6.0) 06/05/20 02:00 U Epithel Cells (Auto) < 1.0 /HPF (0-13.0) 06/05/20 02:00 Urine Mucus 1+ /HPF 06/05/20 02:00 Microbiology: Microbiology 06/06/20 13:20 Abdomen Surgical Culture - Final Escherichia Coli - Diagnostic Impressions Diagnostic Impressions: Echocardiogram 06/05/20 11:49 Transthoracic Echocardiogram Indication: Syncope BP: 110/78 HR: 90 Conclusions *Global left ventricular systolic function is severely decreased. *The estimated ejection fraction is 15-20%. *There is no evidence of aortic regurgitation. *There is mild mitral regurgitation. *There is trace tricuspid regurgitation. *The right ventricular systolic pressure is calculated at 16 mmHg. *The right ventricular chamber size and systolic function are within normal limits. Findings Left Ventricle: The left ventricular chamber size is severely dilated. Mild concentric left ventricular hypertrophy is observed. Global left ventricular systolic function is severely decreased. The estimated ejection fraction is 15-20%. Abnormal left ventricular diastolic filling is observed, consistent with impaired relaxation. Left Atrium: The left atrial chamber size is normal. Right Ventricle: The right ventricular chamber size and systolic function are within normal limits. The right ventricular cavity size is normal. Right Atrium: The right atrial cavity size is normal. Aortic Valve: The aortic valve leaflets are mildly thickened. There is no evidence of aortic regurgitation. Mitral Valve: There is mitral annular calcification. The mitral valve leaflets are mildly thickened. There is mild mitral regurgitation. Tricuspid Valve: The tricuspid valve leaflets are normal. There is trace tricuspid regurgitation. The right ventricular systolic pressure is calculated at 16 mmHg. Pulmonic Valve: The pulmonic valve appears normal. Pericardium: There is no pericardial effusion. Aorta: The aorta appears normal. Venous: The inferior vena cava is not visualized. Measurements Chambers 2D Name Value Normal Range IVSd (2D) 1.16 cm (0.6 - 1.1) LVPWd (2D) 1.22 cm (0.6 - 1.1) LVIDd (2D) 6.83 cm (3.7 - 5.6) LVIDs (2D) 6.28 cm (2 - 3.8) LV FS (2D) 8.03 % - EF Teichholz (2D) 17.3 % - Ao root diameter (2D) 3.46 cm (2 - 3.7) Volumes/Mass Name Value Normal Range LA ESV SP 4CH (A/L) 31.49 ml - LA ESV SP 2CH (A/L) 43.34 ml - LA ESV BP (A/L) 37.57 ml - LA ESV BP (A/L) index 15.27 ml/m2 - LA ESV SP 4CH (MOD) 27.19 ml - LA ESV SP 2CH (MOD) 41.47 ml - LA ESV BP (MOD) 33.9 ml - LA ESV BP (MOD) index 13.78 ml/m2 - Diastolic/Systolic Function Name Value Normal Range MV E-wave Vmax 0.52 m/sec - MV deceleration time 169.73 msec - MV A-wave Vmax 0.62 m/sec - MV E:A ratio 0.84 ratio - Aortic Valve Name Value Normal Range AV Vmax 1.37 m/sec - AV VTI 24.09 cm - AV peak gradient 7.48 mmHg - AV mean gradient 3.85 mmHg - LVOT diameter 2.11 cm - LVOT Vmax 1.07 m/sec - LVOT VTI 20.55 cm - LVOT peak gradient 4.57 mmHg - LVOT mean gradient 2.43 mmHg - SV LVOT 71.7 ml - MARGARETTE (continuity Vmax) 2.73 cm2 - MARGARETTE (continuity VTI) 2.98 cm2 - Mitral Valve Name Value Normal Range MR Vmax 4.81 m/sec - Tricuspid Valve Name Value Normal Range TR Vmax 1.79 m/sec - TR peak gradient 13 mmHg - RAP 3 mmHg - RVSP 16 mmHg - Pulmonic Valve/Qp:Qs Name Value Normal Range PV Vmax 0.87 m/sec - PV peak gradient 3.06 mmHg - PV acceleration time 95.15 msec - Saini/IV: Voiding Method Urinal IV Catheter Type [Left Forearm Peripheral IV ] IV Catheter Type [Right Hand] Peripheral IV Active Medications - Current Medications Current Medications: Generic Name Dose Route Start Last Admin Trade Name Freq PRN Reason Stop Dose Admin Acetaminophen 650 mg 06/05/20 01:13 06/05/20 22:09 Tylenol PO 650 mg Q4H PRN Administration Pain MILD(1-3)/Fever >100.5/LOPEZ Carvedilol 3.125 mg 06/10/20 22:00 06/11/20 21:15 Coreg PO 3.125 mg BID BART Administration Furosemide 40 mg 06/12/20 10:00 Lasix PO DAILY BART Hydromorphone HCl 1 mg 06/06/20 14:43 06/12/20 11:57 Dilaudid IV 1 mg Q4H PRN Administration Pain , Severe (7-10) Piperacillin Sod/Tazobactam Sod 4.5 gm in 100 mls @ 200 mls/hr 06/05/20 14:00 06/12/20 06:52 Zosyn/Ns 4.5gm/100ml IV 200 mls/hr Q8HR BART Administration Protocol Fluconazole 200 mg in 100 mls @ 100 mls/hr 06/08/20 12:00 06/11/20 10:45 Diflucan IV 100 mls/hr Q24HR BART Administration Lisinopril 10 mg 06/05/20 13:00 06/12/20 12:26 Zestril PO 10 mg QDAY BART Administration Ondansetron HCl 4 mg 06/05/20 01:13 06/09/20 21:18 Zofran IV 4 mg Q8H PRN Administration Nausea And Vomiting Oxycodone/Acetaminophen 2 tab 06/10/20 13:28 06/12/20 06:53 Percocet 5/325 PO 2 tab Q4H PRN Administration Pain, Moderate (4-6) Pantoprazole Sodium 40 mg 06/11/20 07:30 06/11/20 09:32 Protonix PO 40 mg QDAC BART Administration Rivaroxaban 20 mg 06/11/20 19:00 06/12/20 15:26 Xarelto PO 20 mg QDAY BART Administration Protocol Sodium Chloride 10 ml 06/05/20 10:00 06/11/20 21:31 Sodium Chloride Flush Syringe 10 Ml IV 10 ml BID BART Administration Sodium Chloride 10 ml 06/05/20 01:13 06/09/20 14:00 Sodium Chloride Flush Syringe 10 Ml IV 10 ml PRN PRN Administration LINE FLUSH Nutrition/Malnutrition Assess - Dietary Evaluation Nutrition/Malnutrition Findings: Nutrition Notes Start: 06/11/20 12:58 Freq: Status: Active Protocol: Document 06/11/20 12:58 RIANNA (Rec: 06/11/20 13:06 RIANNA [id number]) Co-Sign 06/11/20 12:58 LM Nutrition Notes Need for Assessment generated from: LOS Initial or Follow up Assessment Current Diagnosis Hypertension,Heart Failure, Stroke Other Pertinent Diagnosis perforated appendicitis s/p appendectomy Current Diet Full liquid Labs/Tests K 3.5 Pertinent Medications Reviewed Height 6 ft 2 in Weight 125.344 kg [place] Body Weight (kg) 86.36 BMI 35.4 Intake Prior to Admission Good Weight Status Obese Subjective/Other Information Screened for LOS. Pt reports consuming 100% intakes. Pt will begin on GI soft with dinner tonight. Percent of energy/protein needs met: 51%/28% Burn Absent Trauma Absent GI Symptoms None Food Allergy No Current % PO Good (75-100%) Minimum of two criteria No physical signs of malnutrition #2 Nutrition Diagnosis Increased nutrient needs ( specify in comment below) Comments: protein Etiology wound healing As Evidenced by Signs and Symptoms surgical wound #1 Nutrition Diagnosis Inadequate energy intake Etiology appendicitis s/p appendectomy As Evidenced by Signs and Symptoms 100% full liquid diet meets 51 % energy needs and 28% protein needs Is patient on ventilator? No Is Patient Ambulatory and/or Out of Bed Yes REE-([place]-St. Jeor-ambulatory/OOB) [ 2760.147 NUTR.MSJOOB] Kcal/Kg value to use for calculation 18 Approximate Energy Requirements Using 2256 kcal/Kg Calculation Used for Recommendations Kcal/kg Additional Notes Pro: 132-159 g (1.25-1.5 k/kg AdjBW, 105.9 kg) Fluid: 1 ml/kcal Nutrition Intervention Change Diet Order: Diet advancement as medically able Goal #1 Meet at least 75% energy and protein needs Anticipated Discharge Needs: Unable to determine at this time Follow-Up By: 06/15/20 Additional Comments F/U for diet advancement and intakes
--- NOTE | 2020-06-12 16:06 | Progress Note ---
Assessment and Plan 64-year-old male status post diagnostic laparoroscopy, converted to exploratory laparotomy, appendectomy, peritoneal lavage, placement of incisional wound vac, POD 6 1. Perforated appendicitis with generalized peritonitis and abscess 2. Ileus 2/2 #1 3. bacteremia 2/2 #1 Bl cx - PREVOTELLA ORALIS intraabd cx -ecoli Plan: 1. Advance to soft diet 2. IV abx - ID recs reviewed and appreciated. Final PO abx recs reviewed 3. cards recs reviewed and appreciated 4. prn PO pain control 5. incentive spirometry/pulm toilet 6. OOB/ambulate/PT. Pt has rolling walker to go home with 7. continue incisional wound vac - await delivery to hospital 8. C/w abdominal drain as per orders- will dc before patient is discharged home Patient is doing very well. Once home wound VAC is delivered to the hospital, patient is cleared for discharge from a surgery standpoint. Thank you. Please call with questions. Evaluation and treatment of this patient was during the time of the national and state emergency arising from COVID19 coronavirus pandemic. Treatment and procedures performed meet the current and available best practice and guidelines for patient during the COVID pandemic. Subjective Date of service: 06/12/20 Narrative: Patient seen and examined. No acute complaints. No overnight events noted. No fevers or chills. Tolerating a diet. Objective Vital Signs - 12hr 06/12/20 06/12/20 06/12/20 06:53 07:13 07:53 Temperature 98.3 F Pulse Rate 72 Respiratory 17 18 16 Rate Blood Pressure 167/99 O2 Sat by Pulse 94 Oximetry 06/12/20 06/12/20 11:07 15:12 Temperature 98.2 F 98.8 F Pulse Rate 61 71 Respiratory 20 20 Rate Blood Pressure 175/94 186/102 O2 Sat by Pulse 95 98 Oximetry - General physical appearance Narrative Exam: Gen.: Awake, alert, oriented 3. No apparent distress ENT: Trachea midline. No lymphadenopathy. No scleral icterus or conjunctival pallor CV: S1, S2 present Respiratory: No audible wheezes Abdomen: Soft, wound VAC in place with good seal and no leak. Serosanguineous drainage in canister. Suprapubic DONNA drain is serous. No rebound, rigidity, guarding Extremities: No clubbing, cyanosis, edema - Labs 06/07/20 04:57 06/11/20 07:55
[2020-06-12] MEDS ORDERED: ALPRAZolam 0.25 MG TAB PO PRN (16:49)
--- NOTE | 2020-06-12 20:02 | Progress Note ---
Assessment and Plan Cultures: Blood culture 06/05/2020 Prevotella Surgical culture 06/06/2020 E. coli pansensitive pansensitive A/P: 64-year-old man past medical history CHF, hypertension, pulmonary embolism, CVA presents with acute perforated appendicitis. #Perforated appendicitis: Status post washout by surgery 06/06/2020 #Prevotella bacteremia: secondary to necrotic appendicitis. #SAMUEL: Resolving Recs: -Stop Zosyn IV and fluconazole IV -Okay for discharge from infectious disease perspective. Would send with levofloxacin 750 mg every 24 hours and fluconazole 200 mg every 24 hours until 06/13/2020. -Would also send with metronidazole 500 mg every 8 hours until 06/20/2020 for the Prevotella bacteremia. -Follow-up with Dr. Hathaway in 1 to 2 weeks will sign off MD [facility] ([facility]) Office [phone] Subjective Date of service: 06/12/20 Principal diagnosis: Acute Appendicitis Interval history: Patient reports feeling better, denies any fever, chills, tolerating oral route Objective - Exam Narrative Exam: General appearance: Alert in NAD Eyes: anicteric sclerae, moist conjunctivae; no lid-lag; PERRLA HENT: Atraumatic; oropharynx clear with moist mucous membranes and no oral thrush; normal hard and soft palate. Lungs: CTA, with normal respiratory effort and no intercostal retractions CV: RRR no murmur Abdomen: Soft, tender to palpation diffusely, midline wound with wound VAC, drain in place Extremities: no edema, no cyanosis Skin: No rash. Psych: Appropriate affect, alert and oriented to person, place and time. Neuro: alert and oriented x 3. Moving all extermities - Constitutional Vitals: Vital Signs Temp Pulse Resp BP Pulse Ox 98.8 F 76 18 152/68 95 06/12/20 15:12 06/12/20 17:30 06/12/20 17:30 06/12/20 17:30 06/12/20 17:30 Temperature -Last 24 Hours Temperature 98.8 F Temperature 98.2 F Temperature 98.3 F Temperature 98.2 F - Labs CBC & Chem 7: 06/07/20 04:57 06/11/20 07:55 Labs: Abnormal lab results 06/11/20 06/12/20 Range/Units 23:11 11:25 POC Glucose 119 H 114 H (70-105) mg/dL
[2020-06-12] MEDS: FLUCONAZOLE 200 MG TAB PO SCH (22:57)
[2020-06-12] MEDS: metroNIDAZOLE 500 MG TAB PO SCH (22:58)
[2020-06-12] MEDS: levoFLOXacin 750 MG TAB PO SCH (22:59)
[2020-06-13] MEDS: HYDROmorphone 1 MG/1 ML INJ IV PRN ×2 (02:10→22:56)
[2020-06-13] MEDS: metroNIDAZOLE 500 MG TAB PO SCH ×3 (06:16→22:52)
[2020-06-13] MEDS: PANTOPRAZOLE 40 MG TAB PO SCH (08:01)
[2020-06-13] MEDS: oxyCODONE /ACETAMINOPHEN 5-325MG TAB PO PRN (08:01)
[2020-06-13] MEDS: FLUCONAZOLE 200 MG TAB PO SCH (09:23)
[2020-06-13] MEDS: carvediloL 3.125 MG TAB PO SCH (09:24)
[2020-06-13] MEDS: LISINOPRIL 10 MG TAB PO SCH (09:24)
[2020-06-13] MEDS: FUROSEMIDE 40 MG TAB PO SCH ×2 (09:24→09:29)
[2020-06-13] MEDS: RIVAROXABAN 10 MG TAB PO SCH (09:24)
[2020-06-13] MEDS: levoFLOXacin 750 MG TAB PO SCH (09:24)
--- NOTE | 2020-06-13 14:49 | Progress Note ---
Assessment and Plan 64-year-old male status post diagnostic laparoroscopy, converted to exploratory laparotomy, appendectomy, peritoneal lavage, placement of incisional wound vac, POD 7 1. Perforated appendicitis with generalized peritonitis and abscess 2. Ileus 2/2 #1 3. bacteremia 2/2 #1 Bl cx - PREVOTELLA ORALIS intraabd cx -ecoli Plan: 1. soft diet 2. IV abx - ID final antibiotic recs reviewed. Patient to go home with metronidazole 500 mg every 8 hours until 06/20/2020. Today is the last day for Levaquin and fluconazole. 3. cards recs reviewed and appreciated 4. prn PO pain control 5. incentive spirometry/pulm toilet 6. OOB/ambulate/PT. Pt has rolling walker to go home with 7. continue incisional wound vac - await delivery to hospital Patient is doing very well. His daughter was updated yesterday and the entire discharge plan discussed with her over the telephone. Once home wound VAC is delivered to the hospital, patient is cleared for discharge from a surgery standpoint. Thank you. Please call with questions. Evaluation and treatment of this patient was during the time of the national and state emergency arising from COVID19 coronavirus pandemic. Treatment and procedures performed meet the current and available best practice and guidelines for patient during the COVID pandemic. Subjective Date of service: 06/13/20 Narrative: Patient seen and examined. He has no acute complaints. He states that he has been struggling with anxiety for a long time, ever since he had his stroke. He feels that Lasix contributes to his anxiety and has been refusing this medication. States that his physician had started him on Flomax to help him urinate and this seems to help. He denies abdominal pain, nausea, vomiting. He has been afebrile. He has been tolerating a diet but states he does get full quickly. Objective Vital Signs - 12hr 06/13/20 06/13/20 06/13/20 06:13 06:14 07:09 Temperature 98.3 F 98.7 F Pulse Rate 63 62 56 L Respiratory 18 24 Rate Blood Pressure 170/78 187/107 O2 Sat by Pulse 95 97 97 Oximetry 06/13/20 11:20 Temperature 98.0 F Pulse Rate 56 L Respiratory 18 Rate Blood Pressure 178/90 O2 Sat by Pulse 93 Oximetry - General physical appearance Narrative Exam: Gen.: Awake, alert, oriented 3. No apparent distress ENT: Trachea midline. No lymphadenopathy. No scleral icterus or conjunctival pallor CV: S1, S2 present Respiratory: No audible wheezes Abdomen: Soft, nondistended, nontender. Wound VAC in place but machine off and the foam was not compressed. Machine connected to commercial assistant and turned on. Suction initiated at -125 mmHg continuous and also noted to be compressed with a good seal and no leak. Suprapubic DONNA drain is serous. Suture cut and DONNA drain taken off suction, removed intact and dry dressing applied to skin. No rebound, rigidity, guarding Extremities: No clubbing, cyanosis, edema DONNA drain output: 30 cc over 24 hours serous - Labs 06/07/20 04:57 06/11/20 07:55
--- NOTE | 2020-06-13 17:26 | Progress Note ---
Assessment and Plan Assessment and plan: --General anxiety; patient is very anxious, evaluated by psych during this admission no recommendations Patient's daughter reports that patient is getting anxious intermittently, discussed with Dr. Muñoz We will start low-dose Xanax 0.25, 3 times a day as needed for anxiety. And try to reconsult psych tomorrow. --Acute appendicitis with localized perforation/abscess: s/p Diagnostic laparoroscopy, converted to exploratory laparotomy, appendectomy, peritoneal lavage, placement of incisional wound vac, postop care per surgery NG tube removed, full liquids advance to soft diet per surgery Tolerating well, ambulated with physical therapy Wound VAC in place, Awaiting home wound VAC to arrive prior to DC Case management, set up home health . --Sepsis due to acute perforated appendicitis./Surgical cultures positive for E. coli Fever, leukocytosis, tachycardia, perforated acute appendicitis. ID recommend to Continue Zosyn, Diflucan per ID follow cultures. Stop date 06/13/2020 At discharge , Flagyl 500 ,3 times a day stop date 06/20/2020 --Hypertension; moderate control Continue current antihypertensives and as needed medications --Acute kidney injury; not present on admission/resolved Due to vasomotor nephropathy, dehydration Monitor renal function, avoid nephrotoxins, IV hydration Renal function back to baseline normal range --Ongoing tobacco use; smoking cessation counseling Advised nicotine patch --Chronic systolic congestive heart failure; ejection fraction 25% Resume home anti failure medications, input output monitoring Patient will follow with his private surgical assistant upon discharge --Obesity; BMI 34.3 Patient needs weight reduction when medically stable --DVT prophylaxis; Xarelto resumed Patient is medically/surgically stable for discharge. Awaiting home wound VAC to be sent to the patient's room Patient is stable for discharge, waiting for wound VAC History Interval history: I have seen and examined the patient today Patient's chart and medications reviewed Patient feels slightly better no new complaints mild anxiety ,vital signs noted Waiting for wound VAC prior to discharge Hospitalist Physical - Constitutional Vitals: Temp Pulse Resp BP Pulse Ox 98.0 F 56 L 18 178/90 93 06/13/20 11:20 06/13/20 11:20 06/13/20 11:20 06/13/20 11:20 06/13/20 11:20 General appearance: Present: no acute distress, well-nourished, obese, other (Slightly anxious) - EENT Eyes: Present: PERRL, EOM intact - Neck Neck: Present: supple, normal ROM - Respiratory Respiratory effort: normal Respiratory: bilateral: diminished, negative: rales, rhonchi, wheezing - Cardiovascular Rhythm: regular Heart Sounds: Present: S1 & S2 - Extremities Extremities: no ischemia, No edema - Abdominal General gastrointestinal: soft, non-tender, non-distended, normal bowel sounds - Integumentary Integumentary: Present: clear, warm - Psychiatric Psychiatric: appropriate mood/affect, cooperative - Neurologic Neurologic: moves all extremities Results - Labs CBC & Chem 7: 06/07/20 04:57 06/11/20 07:55 Labs: Laboratory Last Values WBC 9.8 K/mm3 (4.5-11.0) 06/07/20 04:57 RBC 4.15 M/mm3 (3.65-5.03) 06/07/20 04:57 Hgb 13.0 gm/dl (11.8-15.2) 06/07/20 04:57 Hct 37.4 % (35.5-45.6) 06/07/20 04:57 MCV 90 fl (84-94) 06/07/20 04:57 MCH 31 pg (28-32) 06/07/20 04:57 MCHC 35 % (32-34) H 06/07/20 04:57 RDW 15.3 % (13.2-15.2) H 06/07/20 04:57 Plt Count 161 K/mm3 (140-440) 06/07/20 04:57 Lymph % (Auto) 6.6 % (13.4-35.0) L 06/07/20 04:57 Evans % (Auto) 10.7 % (0.0-7.3) H 06/07/20 04:57 Eos % (Auto) 0.0 % (0.0-4.3) 06/07/20 04:57 Baso % (Auto) 0.1 % (0.0-1.8) 06/07/20 04:57 Lymph # (Auto) 0.6 K/mm3 (1.2-5.4) L 06/07/20 04:57 Evans # (Auto) 1.1 K/mm3 (0.0-0.8) H 06/07/20 04:57 Eos # (Auto) 0.0 K/mm3 (0.0-0.4) 06/07/20 04:57 Baso # (Auto) 0.0 K/mm3 (0.0-0.1) 06/07/20 04:57 Seg Neutrophils % 82.6 % (40.0-70.0) H 06/07/20 04:57 Seg Neutrophils # 8.1 K/mm3 (1.8-7.7) H 06/07/20 04:57 PT 18.4 Sec. (12.2-14.9) H 06/06/20 04:43 INR 1.50 (0.87-1.13) H 06/06/20 04:43 Sodium 142 mmol/L (137-145) 06/11/20 07:55 Potassium 3.5 mmol/L (3.6-5.0) L 06/11/20 07:55 Chloride 103.7 mmol/L (98-107) 06/11/20 07:55 Carbon Dioxide 31 mmol/L (22-30) H 06/11/20 07:55 Anion Gap 11 mmol/L 06/11/20 07:55 BUN 9 mg/dL (9-20) 06/11/20 07:55 Creatinine 1.0 mg/dL (0.8-1.3) 06/11/20 07:55 Estimated GFR > 60 ml/min 06/11/20 07:55 BUN/Creatinine Ratio 9 % 06/11/20 07:55 Glucose 124 mg/dL (75-100) H 06/11/20 07:55 POC Glucose 100 mg/dL (70-105) 06/13/20 11:35 Calcium 8.2 mg/dL (8.4-10.2) L 06/11/20 07:55 Phosphorus 2.00 mg/dL (2.5-4.5) L 06/09/20 04:40 Magnesium 2.10 mg/dL (1.7-2.3) 06/09/20 04:40 Total Bilirubin 1.10 mg/dL (0.1-1.2) 06/04/20 21:35 AST 12 units/L (5-40) 06/04/20 21:35 ALT 15 units/L (7-56) 06/04/20 21:35 Alkaline Phosphatase 81 units/L (35-129) 06/04/20 21:35 Total Protein 7.9 g/dL (6.3-8.2) 06/04/20 21:35 Albumin 4.1 g/dL (3.9-5) 06/04/20 21:35 Albumin/Globulin Ratio 1.1 % 06/04/20 21:35 Lipase 16 units/L (13-60) 06/04/20 21:35 Urine Color Yellow (Yellow) 06/05/20 02:00 Urine Turbidity Clear (Clear) 06/05/20 02:00 Urine pH 5.0 (5.0-7.0) 06/05/20 02:00 Ur Specific [place] > 1.059 (1.003-1.030) H 06/05/20 02:00 Urine Protein 30 mg/dl mg/dL (Negative) 06/05/20 02:00 Urine Glucose (UA) Neg mg/dL (Negative) 06/05/20 02:00 Urine Ketones Tr mg/dL (Negative) 06/05/20 02:00 Urine Blood Mod (Negative) 06/05/20 02:00 Urine Nitrite Neg (Negative) 06/05/20 02:00 Urine Bilirubin Neg (Negative) 06/05/20 02:00 Urine Urobilinogen 4.0 mg/dL (<2.0) 06/05/20 02:00 Ur Leukocyte Esterase Neg (Negative) 06/05/20 02:00 Urine WBC (Auto) 3.0 /HPF (0.0-6.0) 06/05/20 02:00 Urine RBC (Auto) 9.0 /HPF (0.0-6.0) 06/05/20 02:00 U Epithel Cells (Auto) < 1.0 /HPF (0-13.0) 06/05/20 02:00 Urine Mucus 1+ /HPF 06/05/20 02:00 - Diagnostic Impressions Diagnostic Impressions: Echocardiogram 06/05/20 11:49 Transthoracic Echocardiogram Indication: Syncope BP: 110/78 HR: 90 Conclusions *Global left ventricular systolic function is severely decreased. *The estimated ejection fraction is 15-20%. *There is no evidence of aortic regurgitation. *There is mild mitral regurgitation. *There is trace tricuspid regurgitation. *The right ventricular systolic pressure is calculated at 16 mmHg. *The right ventricular chamber size and systolic function are within normal limits. Findings Left Ventricle: The left ventricular chamber size is severely dilated. Mild concentric left ventricular hypertrophy is observed. Global left ventricular systolic function is severely decreased. The estimated ejection fraction is 15-20%. Abnormal left ventricular diastolic filling is observed, consistent with impaired relaxation. Left Atrium: The left atrial chamber size is normal. Right Ventricle: The right ventricular chamber size and systolic function are within normal limits. The right ventricular cavity size is normal. Right Atrium: The right atrial cavity size is normal. Aortic Valve: The aortic valve leaflets are mildly thickened. There is no evidence of aortic regurgitation. Mitral Valve: There is mitral annular calcification. The mitral valve leaflets are mildly thickened. There is mild mitral regurgitation. Tricuspid Valve: The tricuspid valve leaflets are normal. There is trace tricuspid regurgitation. The right ventricular systolic pressure is calculated at 16 mmHg. Pulmonic Valve: The pulmonic valve appears normal. Pericardium: There is no pericardial effusion. Aorta: The aorta appears normal. Venous: The inferior vena cava is not visualized. Measurements Chambers 2D Name Value Normal Range IVSd (2D) 1.16 cm (0.6 - 1.1) LVPWd (2D) 1.22 cm (0.6 - 1.1) LVIDd (2D) 6.83 cm (3.7 - 5.6) LVIDs (2D) 6.28 cm (2 - 3.8) LV FS (2D) 8.03 % - EF Teichholz (2D) 17.3 % - Ao root diameter (2D) 3.46 cm (2 - 3.7) Volumes/Mass Name Value Normal Range LA ESV SP 4CH (A/L) 31.49 ml - LA ESV SP 2CH (A/L) 43.34 ml - LA ESV BP (A/L) 37.57 ml - LA ESV BP (A/L) index 15.27 ml/m2 - LA ESV SP 4CH (MOD) 27.19 ml - LA ESV SP 2CH (MOD) 41.47 ml - LA ESV BP (MOD) 33.9 ml - LA ESV BP (MOD) index 13.78 ml/m2 - Diastolic/Systolic Function Name Value Normal Range MV E-wave Vmax 0.52 m/sec - MV deceleration time 169.73 msec - MV A-wave Vmax 0.62 m/sec - MV E:A ratio 0.84 ratio - Aortic Valve Name Value Normal Range AV Vmax 1.37 m/sec - AV VTI 24.09 cm - AV peak gradient 7.48 mmHg - AV mean gradient 3.85 mmHg - LVOT diameter 2.11 cm - LVOT Vmax 1.07 m/sec - LVOT VTI 20.55 cm - LVOT peak gradient 4.57 mmHg - LVOT mean gradient 2.43 mmHg - SV LVOT 71.7 ml - MARGARETTE (continuity Vmax) 2.73 cm2 - MARGARETTE (continuity VTI) 2.98 cm2 - Mitral Valve Name Value Normal Range MR Vmax 4.81 m/sec - Tricuspid Valve Name Value Normal Range TR Vmax 1.79 m/sec - TR peak gradient 13 mmHg - RAP 3 mmHg - RVSP 16 mmHg - Pulmonic Valve/Qp:Qs Name Value Normal Range PV Vmax 0.87 m/sec - PV peak gradient 3.06 mmHg - PV acceleration time 95.15 msec - Saini/IV: Voiding Method Urinal IV Catheter Type [Left Forearm Peripheral IV ] IV Catheter Type [Right Hand] Peripheral IV Active Medications - Current Medications Current Medications: Generic Name Dose Route Start Last Admin Trade Name Freq PRN Reason Stop Dose Admin Acetaminophen 650 mg 06/05/20 01:13 06/05/20 22:09 Tylenol PO 650 mg Q4H PRN Administration Pain MILD(1-3)/Fever >100.5/LOPEZ Alprazolam 0.25 mg 06/12/20 16:49 06/13/20 02:28 Xanax PO 0.25 mg Q8H PRN Administration Anxiety Carvedilol 3.125 mg 06/10/20 22:00 06/13/20 09:24 Coreg PO 3.125 mg BID BART Administration Fluconazole 200 mg 06/12/20 21:00 06/13/20 09:23 Diflucan PO 200 mg QDAY BART Administration Furosemide 40 mg 06/12/20 10:00 06/13/20 09:29 Lasix PO Not Given DAILY BART Hydromorphone HCl 0.5 mg 06/12/20 16:23 06/13/20 02:10 Dilaudid IV 0.5 mg Q4H PRN Administration Pain , Severe (7-10) Levofloxacin 750 mg 06/12/20 21:00 06/13/20 09:24 Levaquin PO 750 mg Q24HR BART Administration Lisinopril 20 mg 06/13/20 13:27 Zestril PO QDAY BART Metoprolol Succinate 25 mg 06/14/20 10:00 Metoprolol Xl PO QDAY BART Metronidazole 500 mg 06/12/20 22:00 06/13/20 14:16 Flagyl PO 500 mg Q8HR [facility] Administration Protocol Ondansetron HCl 4 mg 06/05/20 01:13 06/09/20 21:18 Zofran IV 4 mg Q8H PRN Administration Nausea And Vomiting Oxycodone/Acetaminophen 2 tab 06/10/20 13:28 06/13/20 08:01 Percocet 5/325 PO 2 tab Q4H PRN Administration Pain, Moderate (4-6) Pantoprazole Sodium 40 mg 06/11/20 07:30 06/13/20 08:01 Protonix PO 40 mg QDAC BART Administration Rivaroxaban 20 mg 06/11/20 19:00 06/13/20 09:24 Xarelto PO 20 mg QDAY [facility] Administration Protocol Sodium Chloride 10 ml 06/05/20 10:00 06/13/20 09:25 Sodium Chloride Flush Syringe 10 Ml IV 10 ml BID BART Administration Sodium Chloride 10 ml 06/05/20 01:13 06/09/20 14:00 Sodium Chloride Flush Syringe 10 Ml IV 10 ml PRN PRN Administration LINE FLUSH Nutrition/Malnutrition Assess - Dietary Evaluation Nutrition/Malnutrition Findings: Nutrition Notes Start: 06/11/20 12:58 Freq: Status: Active Protocol: Document 06/11/20 12:58 RIANNA (Rec: 06/11/20 13:06 RIANNA [id number]) Co-Sign 06/11/20 12:58 LM Nutrition Notes Need for Assessment generated from: LOS Initial or Follow up Assessment Current Diagnosis Hypertension,Heart Failure, Stroke Other Pertinent Diagnosis perforated appendicitis s/p appendectomy Current Diet Full liquid Labs/Tests K 3.5 Pertinent Medications Reviewed Height 6 ft 2 in Weight 125.344 kg [place] Body Weight (kg) 86.36 BMI 35.4 Intake Prior to Admission Good Weight Status Obese Subjective/Other Information Screened for LOS. Pt reports consuming 100% intakes. Pt will begin on GI soft with dinner tonight. Percent of energy/protein needs met: 51%/28% Burn Absent Trauma Absent GI Symptoms None Food Allergy No Current % PO Good (75-100%) Minimum of two criteria No physical signs of malnutrition #2 Nutrition Diagnosis Increased nutrient needs ( specify in comment below) Comments: protein Etiology wound healing As Evidenced by Signs and Symptoms surgical wound #1 Nutrition Diagnosis Inadequate energy intake Etiology appendicitis s/p appendectomy As Evidenced by Signs and Symptoms 100% full liquid diet meets 51 % energy needs and 28% protein needs Is patient on ventilator? No Is Patient Ambulatory and/or Out of Bed Yes REE-([place]-St. Jeor-ambulatory/OOB) [ 2760.147 NUTR.MSJOOB] Kcal/Kg value to use for calculation 18 Approximate Energy Requirements Using 2256 kcal/Kg Calculation Used for Recommendations Kcal/kg Additional Notes Pro: 132-159 g (1.25-1.5 k/kg AdjBW, 105.9 kg) Fluid: 1 ml/kcal Nutrition Intervention Change Diet Order: Diet advancement as medically able Goal #1 Meet at least 75% energy and protein needs Anticipated Discharge Needs: Unable to determine at this time Follow-Up By: 06/15/20 Additional Comments F/U for diet advancement and intakes
[2020-06-14] MEDS: oxyCODONE /ACETAMINOPHEN 5-325MG TAB PO PRN (05:44)
[2020-06-14] MEDS: metroNIDAZOLE 500 MG TAB PO SCH ×2 (05:44→13:55)
[2020-06-14] MEDS: LISINOPRIL 10 MG TAB PO SCH ×2 (08:30→10:13)
[2020-06-14] MEDS: levoFLOXacin 750 MG TAB PO SCH (08:30)
[2020-06-14] MEDS: METOPROLOL SUCCINATE XL 25 MG TAB PO SCH ×2 (08:31→10:13)
[2020-06-14] MEDS: FUROSEMIDE 40 MG TAB PO SCH ×2 (08:31→10:12)
[2020-06-14] MEDS: PANTOPRAZOLE 40 MG TAB PO SCH (08:31)
[2020-06-14] MEDS: RIVAROXABAN 10 MG TAB PO SCH (10:17)
[2020-06-14 11:53] VITALS: BP 161/107
--- NOTE | 2020-06-14 13:31 | Progress Note ---
Assessment and Plan Cultures: Blood culture 06/05/2020 Prevotella Surgical culture 06/06/2020 E. coli pansensitive pansensitive A/P: 64-year-old man past medical history CHF, hypertension, pulmonary embolism, CVA presents with acute perforated appendicitis. #Perforated appendicitis: Status post washout by surgery 06/06/2020 #Prevotella bacteremia: secondary to necrotic appendicitis. #SAMUEL: Resolving Recs: -Stop Zosyn IV and fluconazole IV -Okay for discharge from infectious disease perspective. Would send with levofloxacin 750 mg every 24 hours and fluconazole 200 mg every 24 hours until 06/13/2020. -Would also send with metronidazole 500 mg every 8 hours until 06/20/2020 for the Prevotella bacteremia. -Follow-up with Dr. Hathaway in 1 to 2 weeks well flow operator notified will sign off Aunm Almeida MD [facility] ([facility]) Office [phone] Subjective Date of service: 06/14/20 Principal diagnosis: Acute Appendicitis Interval history: Patient feels better, no complaints awaiting for wound VAC, no fever Objective - Exam Narrative Exam: General appearance: Alert in NAD Eyes: anicteric sclerae, moist conjunctivae; no lid-lag; PERRLA HENT: Atraumatic; oropharynx clear with moist mucous membranes and no oral thrush; normal hard and soft palate. Lungs: CTA, with normal respiratory effort and no intercostal retractions CV: RRR no murmur Abdomen: Soft, tender to palpation diffusely, midline wound with wound VAC Extremities: no edema, no cyanosis Skin: No rash. Psych: Appropriate affect, alert and oriented to person, place and time. Neuro: alert and oriented x 3. Moving all extermities - Constitutional Vitals: Vital Signs Temp Pulse Resp BP Pulse Ox 98.2 F 74 20 161/107 88 06/14/20 11:33 06/14/20 11:33 06/14/20 11:33 06/14/20 11:33 06/14/20 11:33 Temperature -Last 24 Hours Temperature 98.2 F Temperature 98.4 F Temperature 98.5 F Temperature 98.5 F Temperature 98.7 F Temperature 98.2 F - Labs CBC & Chem 7: 06/07/20 04:57 06/11/20 07:55
--- NOTE | 2020-06-14 15:52 | Progress Note ---
Assessment and Plan 64-year-old male status post diagnostic laparoroscopy, converted to exploratory laparotomy, appendectomy, peritoneal lavage, placement of incisional wound vac, POD 8 1. Perforated appendicitis with generalized peritonitis and abscess 2. Ileus 2/2 #1 3. bacteremia 2/2 #1 Bl cx - PREVOTELLA ORALIS intraabd cx -ecoli Plan: 1. soft diet 2. IV abx - ID final antibiotic recs reviewed. Patient to go home with metronidazole 500 mg every 8 hours until 06/20/2020. 3. cards recs reviewed and appreciated 4. prn PO pain control 5. incentive spirometry/pulm toilet 6. OOB/ambulate/PT. Pt has rolling walker to go home with 7. continue incisional wound vac -patient switched over to home wound VAC. All supplies delivered to bedside. Okay to discharge home from surgical standpoint. Patient has an appointment hesham khadar at the wound care center with me on Thursday 06/21. He states that he has a company he normally uses for transportation. Home health care is set up. Discussed with Dr. Silver Thank you. Please call with questions. Evaluation and treatment of this patient was during the time of the national and state emergency arising from COVID19 coronavirus pandemic. Treatment and procedures performed meet the current and available best practice and guidelines for patient during the COVID pandemic. Subjective Date of service: 06/14/20 Narrative: Patient seen and examined. His only complaint is that he is still in the hospital and wants to go home. No fevers or chills, nausea, vomiting. Abdominal pain is well controlled. He is tolerating a diet. Wound VAC was changed today by enterprise resource planning consultant. Objective Vital Signs - 12hr 06/14/20 06/14/20 06/14/20 05:36 07:41 08:30 Temperature 98.5 F 98.4 F Pulse Rate 75 61 61 Respiratory 18 18 Rate Blood Pressure 175/108 155/88 155/88 O2 Sat by Pulse 94 92 Oximetry 06/14/20 06/14/20 08:31 11:33 Temperature 98.2 F Pulse Rate 61 74 Respiratory 20 Rate Blood Pressure 155/88 161/107 O2 Sat by Pulse 88 Oximetry - General physical appearance Narrative Exam: Gen.: Awake, alert, oriented 3. No apparent distress ENT: Trachea midline. No lymphadenopathy. No scleral icterus or conjunctival pallor CV: S1, S2 present Respiratory: No audible wheezes Abdomen: Soft, nondistended, nontender. Wound VAC in place with all foam compressed, good seal and no leak. Patient transferred to home wound VAC. No rebound, rigidity, guarding Extremities: No clubbing, cyanosis, edema - Labs 06/07/20 04:57 06/11/20 07:55
--- NOTE | 2020-06-14 16:29 | Discharge Summary ---
Providers - Providers Date of Admission: 06/06/20 10:42 Date of discharge: 06/14/20 Attending physician: SILAS HORN 06/05/20 00:27 Consult to Physician [CONS] Routine Comment: Dr. Zhou spoke with Dr. Wallace @ 0025 Consulting Provider: BARBARA WALLACE Physician Instructions: Reason For Exam: Appendicitis 06/06/20 14:39 Consult to Wound/ET Nurse [CONS] Routine Reason For Exam: wound vac - applied Wednesday 06/0606/07/20 08:16 Consult to Physician [CONS] Routine Comment: Consulting Provider: LUIZ LUCIA Physician Instructions: Reason For Exam: bacteremia, perforated appendicitis 06/07/20 16:07 Physical Therapy Evaluation and Treat [CONS] Routine Comment: may clamp NGT to ambulate/OOB Reason For Exam: post op Primary care physician: LEAD NEURODIAGNOSTIC TECHNOLOGIST Hospitalization Reason for admission: Abdominal pain/acute perforated appendicitis Condition: Serious Pertinent studies: CT abdomen and pelvis; acute perforated appendicitis Procedures: s/p Diagnostic laparoroscopy, converted to exploratory laparotomy, appendectomy, peritoneal lavage, placement of incisional wound vac, postop care per surgery Hospital course: 64-year-old male with past medical history of hypertension, CHF, recent diagnosis of PE 3 months ago on Xarelto was admitted through emergency room with 2 days of right lower quadrant abdominal pain and fever of 100.2 associated with nausea vomiting. He states he had a follow-up appointment at [facility] yesterday to repeat lab work and determine how long he would be on Xarelto. Due to the abdominal pain he was unable to make that appointment. His last dose of Xarelto was yesterday morning. Initial work-up in the emergency room with CT abdomen and pelvis revealed, acute perforated appendicitis with surrounding inflammation. Patient was admitted with n.p.o. status, evaluated by surgery and subsequently underwent diagnostic laparoscopy converted into exploratory laparotomy appendectomy peritoneal lavage placement of incisional wound VAC. Patient had uncomplicated postop stay in the hospital, with wound VAC IV antibiotics, evaluated by ID, surgical cultures positive for E. coli ID recommend long-term antibiotics Zosyn Diflucan stop date 06/13/2020. ID recommend oral Flagyl 500 mg 3 times a day at the time of discharge to continue and stop date at 06/20/2020. Today patient is comfortable no new complaints vital signs stable physical examination unremarkable Hemodynamically and clinically stable for discharge after the wound VAC arrives Patient advised to follow with primary care physician, surgeon Advised to follow psychiatrist for his general anxiety Stable at discharge Discharge diagnosis: --Acute appendicitis with localized perforation/abscess: s/p Diagnostic laparoroscopy, converted to exploratory laparotomy, appendectomy, peritoneal lavage, placement of incisional wound vac, postop care per surgery NG tube removed, full liquids advance to soft diet per surgery Tolerating well, ambulated with physical therapy Wound VAC in place, Awaiting home wound VAC to arrive prior to DC Case management, set up home health . --Sepsis due to acute with surrounding inflammation./Surgical cultures positive for E. coli ID evaluated and recommend ,Zosyn, Diflucan per ID , Stop date 06/13/2020 At discharge , Flagyl 500 ,3 times a day stop date 06/20/2020 --General anxiety; Low-dose Xanax 0.25, 3 times a day as needed for anxiety. --Hypertension; moderate control --Acute kidney injury; not present on admission/resolved --Ongoing tobacco use; smoking cessation counseling, nicotine patch --Chronic systolic congestive heart failure; ejection fraction 25% Resume home anti failure medications, follow cardiology per Advised to follow --Obesity; BMI 34.3; Pt needs weight reduction when medically stable --DVT prophylaxis; Xarelto resumed Patient is medically/surgically stable for discharge. DC home with wound VAC to be sent to the patient's room Patient is stable for discharge Disposition: DC/[place]-06 HOME UNDER HOME [facility] Time spent for discharge: 35 min Core Measure Documentation - Palliative Care Palliative Care/ Comfort Measures: Not Applicable - Core Measures Any of the following diagnoses?: none Exam - Constitutional Vitals: Temp Pulse Resp BP Pulse Ox 98.2 F 74 20 161/107 88 06/14/20 11:33 06/14/20 11:33 06/14/20 11:33 06/14/20 11:33 06/14/20 11:33 General appearance: Present: no acute distress, well-nourished - EENT Eyes: Present: PERRL, EOM intact - Neck Neck: Present: supple, normal ROM - Respiratory Respiratory effort: normal Respiratory: bilateral: diminished, negative: rales, rhonchi, wheezing - Cardiovascular Rhythm: regular Heart Sounds: Present: S1 & S2 - Extremities Extremities: no ischemia, No edema - Abdominal General gastrointestinal: Present: soft, non-tender, non-distended, normal bowel sounds - Integumentary Integumentary: Present: clear, warm - Musculoskeletal Musculoskeletal: strength equal bilaterally - Psychiatric Psychiatric: appropriate mood/affect, cooperative - Neurologic Neurologic: moves all extremities Plan Activity: advance as tolerated, fall precautions Diet: other (Soft diet) Additional Instructions: advised soft diet. incentive spirometry. Pt has rolling walker to go home with. home wound VAC. All supplies delivered to bedside. Follow with outpatient Dr. Wallace at wound care center 06/21/2020 and also in 2 weeks Follow up with: PRIMARY CARE, [Primary Care Provider] - 3-5 Days DEANA GOMEZ MD [Staff Physician] - 14 Days BARBARA WALLACE DO [Staff Physician] - 14 Days Prescriptions: metroNIDAZOLE [Flagyl] 500 mg PO Q8HR #18 tablet HYDROcodone/APAP 5-325 [[place] 5-325 mg TAB] 1 each PO Q6HR PRN #20 tablet PRN Reason: Pain ALPRAZolam [Xanax TAB] 0.25 mg PO Q8H PRN #10 tablet PRN Reason: Anxiety
[2020-06-15] MEDS ORDERED: RIVAROXABAN 20 MG TAB PO SCH (08:00)
== END 2020-06-14 18:50 | disposition home health service (06) | DRG 853 ==
LOC: ED 20:34 → 3B-SURG 06-05 00:38 → OBSVTOIN 06-06 10:42
PROVIDERS: ADMIT Internal Medicine Geriatric Medicine; ATTEND Internal Medicine
PROC: 0DTJ0ZZ Resection of Appendix, Open Approach (ICD-10-PCS; principal; 2020-06-06)
PROC: 0WJG4ZZ Inspection of Peritoneal Cavity, Percutaneous Endoscopic Approach (ICD-10-PCS; 2020-06-06)
DX: A41.9 Sepsis, unspecified organism (principal); K35.33 Acute appendicitis with perforation, localized peritonitis, and gangrene, with abscess; N17.0 Acute kidney failure with tubular necrosis; I11.0 Hypertensive heart disease with heart failure; F17.200 Nicotine dependence, unspecified, uncomplicated; F41.1 Generalized anxiety disorder; I50.22 Chronic systolic (congestive) heart failure; E66.9 Obesity, unspecified; Z79.82 Long term (current) use of aspirin; Z79.899 Other long term (current) drug therapy; Z86.711 Personal history of pulmonary embolism; Z86.73 Personal history of transient ischemic attack (TIA), and cerebral infarction without residual deficits; Z71.6 Tobacco abuse counseling; Z68.36 Body mass index [BMI] 36.0-36.9, adult
CPT/HCPCS: 36415; 74018; 74177; 80048; 80053; 81001; 82962; 83690; 83735; 84100; 85025; 85027; 85610; 87040; 87075; 87076; 87116; 87186; 88304; 93005; 93306; 94760; 96365; 96367; 96375; 99406; G0378; C9113; J0330; J1100; J1170; J1450; J1644; J1885; J2060; J2270; J2370; J2405; J2543; J2704; J2710; J3010; J7030; J7042; J7050; Q9967

== ENCOUNTER 2020-06-21 10:48 | Outpatient (CLI) | payer MEDICAID ==
[2020-06-21] MEDS ORDERED: LIDOCAINE (4%) 40 MG/ML TOPICAL SOLN 50 ML BOTTLE TP ONE (10:52)
== END 2020-06-21 10:49 | disposition home or self-care (01) ==
LOC: WOUND 10:48
PROVIDERS: ATTEND Surgery
DX: T81.89XA Other complications of procedures, not elsewhere classified, initial encounter (principal); I11.0 Hypertensive heart disease with heart failure; I50.9 Heart failure, unspecified; Z95.0 Presence of cardiac pacemaker; Z86.711 Personal history of pulmonary embolism; Z86.73 Personal history of transient ischemic attack (TIA), and cerebral infarction without residual deficits; Y83.8 Other surgical procedures as the cause of abnormal reaction of the patient, or of later complication, without mention of misadventure at the time of the procedure; Y92.234 Operating room of hospital as the place of occurrence of the external cause
CPT/HCPCS: 97606; G0463; 99215

== ENCOUNTER 2020-06-28 11:04 | Outpatient (CLI) | payer MEDICAID ==
[2020-06-28] MEDS ORDERED: LIDOCAINE (4%) 40 MG/ML TOPICAL SOLN 50 ML BOTTLE TP ONE (11:16)
== END 2020-06-28 11:05 | disposition home or self-care (01) ==
LOC: WOUND 11:04
PROVIDERS: ATTEND Surgery
DX: T81.89XD Other complications of procedures, not elsewhere classified, subsequent encounter (principal); I11.0 Hypertensive heart disease with heart failure; I50.9 Heart failure, unspecified; Z95.0 Presence of cardiac pacemaker; Z86.711 Personal history of pulmonary embolism; Z86.73 Personal history of transient ischemic attack (TIA), and cerebral infarction without residual deficits; Y83.8 Other surgical procedures as the cause of abnormal reaction of the patient, or of later complication, without mention of misadventure at the time of the procedure
CPT/HCPCS: 97606

== ENCOUNTER 2020-07-02 10:02 | Outpatient (CLI) | payer MEDICAID | END 2020-07-02 10:03 | disposition home or self-care (01) | LOC: WOUND 10:02 | PROVIDERS: ATTEND Surgery | DX: T81.89XD Other complications of procedures, not elsewhere classified, subsequent encounter (principal); I11.0 Hypertensive heart disease with heart failure; I50.9 Heart failure, unspecified; Z95.0 Presence of cardiac pacemaker; Z86.711 Personal history of pulmonary embolism; Z86.73 Personal history of transient ischemic attack (TIA), and cerebral infarction without residual deficits; Y83.8 Other surgical procedures as the cause of abnormal reaction of the patient, or of later complication, without mention of misadventure at the time of the procedure | CPT/HCPCS: 97606 ==

== ENCOUNTER 2020-07-05 11:03 | Outpatient (CLI) | payer MEDICAID ==
[2020-07-05] MEDS ORDERED: LIDOCAINE (4%) 40 MG/ML TOPICAL SOLN 50 ML BOTTLE TP ONE (13:00)
== END 2020-07-05 11:04 | disposition home or self-care (01) ==
LOC: WOUND 11:03
PROVIDERS: ATTEND Surgery
DX: T81.89XD Other complications of procedures, not elsewhere classified, subsequent encounter (principal); I11.0 Hypertensive heart disease with heart failure; I50.9 Heart failure, unspecified; Z95.0 Presence of cardiac pacemaker; Z86.711 Personal history of pulmonary embolism; Z86.73 Personal history of transient ischemic attack (TIA), and cerebral infarction without residual deficits; Y83.8 Other surgical procedures as the cause of abnormal reaction of the patient, or of later complication, without mention of misadventure at the time of the procedure
CPT/HCPCS: 97605

== ENCOUNTER 2020-07-09 09:22 | Outpatient (CLI) | payer MEDICAID | END 2020-07-09 09:23 | disposition home or self-care (01) | LOC: WOUND 09:22 | PROVIDERS: ATTEND Surgery | DX: T81.89XD Other complications of procedures, not elsewhere classified, subsequent encounter (principal); S31.109D Unspecified open wound of abdominal wall, unspecified quadrant without penetration into peritoneal cavity, subsequent encounter; I11.0 Hypertensive heart disease with heart failure; I50.9 Heart failure, unspecified; Z95.0 Presence of cardiac pacemaker; Z86.711 Personal history of pulmonary embolism; Z86.73 Personal history of transient ischemic attack (TIA), and cerebral infarction without residual deficits; Y83.8 Other surgical procedures as the cause of abnormal reaction of the patient, or of later complication, without mention of misadventure at the time of the procedure; X58.XXXD Exposure to other specified factors, subsequent encounter | CPT/HCPCS: 97605 ==

== ENCOUNTER 2020-07-12 10:27 | Outpatient (CLI) | payer MEDICAID ==
[2020-07-12] MEDS ORDERED: LIDOCAINE (4%) 40 MG/ML TOPICAL SOLN 50 ML BOTTLE TP ONE (11:30)
== END 2020-07-12 10:28 | disposition home or self-care (01) ==
LOC: WOUND 10:27
PROVIDERS: ATTEND Surgery
DX: T81.89XD Other complications of procedures, not elsewhere classified, subsequent encounter (principal); S31.109D Unspecified open wound of abdominal wall, unspecified quadrant without penetration into peritoneal cavity, subsequent encounter; I11.0 Hypertensive heart disease with heart failure; I50.9 Heart failure, unspecified; Z95.0 Presence of cardiac pacemaker; Z86.711 Personal history of pulmonary embolism; Z86.73 Personal history of transient ischemic attack (TIA), and cerebral infarction without residual deficits; Y83.8 Other surgical procedures as the cause of abnormal reaction of the patient, or of later complication, without mention of misadventure at the time of the procedure; X58.XXXD Exposure to other specified factors, subsequent encounter
CPT/HCPCS: 99214; G0463

== ENCOUNTER 2020-07-19 10:41 | Outpatient (CLI) | payer MEDICAID ==
[2020-07-19] MEDS ORDERED: LIDOCAINE (4%) 40 MG/ML TOPICAL SOLN 50 ML BOTTLE TP SCH (11:23)
[2020-07-19] MEDS ORDERED: LIDOCAINE (4%) 40 MG/ML TOPICAL SOLN 50 ML BOTTLE TP ONE (14:27)
== END 2020-07-19 10:42 | disposition home or self-care (01) ==
LOC: WOUND 10:41
PROVIDERS: ATTEND Surgery
DX: T81.89XD Other complications of procedures, not elsewhere classified, subsequent encounter (principal); S31.109D Unspecified open wound of abdominal wall, unspecified quadrant without penetration into peritoneal cavity, subsequent encounter; I11.0 Hypertensive heart disease with heart failure; I50.9 Heart failure, unspecified; Z95.0 Presence of cardiac pacemaker; Z86.711 Personal history of pulmonary embolism; Z86.73 Personal history of transient ischemic attack (TIA), and cerebral infarction without residual deficits; Y83.8 Other surgical procedures as the cause of abnormal reaction of the patient, or of later complication, without mention of misadventure at the time of the procedure; X58.XXXD Exposure to other specified factors, subsequent encounter
CPT/HCPCS: 97605

== ENCOUNTER 2020-08-02 10:20 | Outpatient (CLI) | payer MEDICAID ==
[2020-08-02] MEDS ORDERED: LIDOCAINE (4%) 40 MG/ML TOPICAL SOLN 50 ML BOTTLE TP ONE (10:38)
== END 2020-08-02 10:21 | disposition home or self-care (01) ==
LOC: WOUND 10:20
PROVIDERS: ATTEND Surgery
DX: T81.89XD Other complications of procedures, not elsewhere classified, subsequent encounter (principal); S31.109D Unspecified open wound of abdominal wall, unspecified quadrant without penetration into peritoneal cavity, subsequent encounter; I11.0 Hypertensive heart disease with heart failure; I50.9 Heart failure, unspecified; Z95.0 Presence of cardiac pacemaker; Z86.711 Personal history of pulmonary embolism; Z86.73 Personal history of transient ischemic attack (TIA), and cerebral infarction without residual deficits; Y83.8 Other surgical procedures as the cause of abnormal reaction of the patient, or of later complication, without mention of misadventure at the time of the procedure; X58.XXXD Exposure to other specified factors, subsequent encounter

== ENCOUNTER 2020-08-16 10:35 | Outpatient (CLI) | payer MEDICAID ==
[2020-08-16] MEDS ORDERED: LIDOCAINE (4%) 40 MG/ML TOPICAL SOLN 50 ML BOTTLE TP ONE (10:36)
== END 2020-08-16 10:36 | disposition home or self-care (01) ==
LOC: WOUND 10:35
PROVIDERS: ATTEND Surgery
DX: T81.89XD Other complications of procedures, not elsewhere classified, subsequent encounter (principal); S31.109D Unspecified open wound of abdominal wall, unspecified quadrant without penetration into peritoneal cavity, subsequent encounter; I11.0 Hypertensive heart disease with heart failure; I50.9 Heart failure, unspecified; Z95.0 Presence of cardiac pacemaker; Z86.711 Personal history of pulmonary embolism; Z86.73 Personal history of transient ischemic attack (TIA), and cerebral infarction without residual deficits; Y83.8 Other surgical procedures as the cause of abnormal reaction of the patient, or of later complication, without mention of misadventure at the time of the procedure; X58.XXXD Exposure to other specified factors, subsequent encounter
CPT/HCPCS: 99214; G0463

== ENCOUNTER 2020-08-30 10:23 | Outpatient (CLI) | payer MEDICAID ==
[2020-08-30] MEDS ORDERED: LIDOCAINE (4%) 40 MG/ML TOPICAL SOLN 50 ML BOTTLE TP ONE (10:24)
== END 2020-08-30 10:24 | disposition home or self-care (01) ==
LOC: WOUND 10:23
PROVIDERS: ATTEND Surgery
DX: T81.89XD Other complications of procedures, not elsewhere classified, subsequent encounter (principal); S31.109D Unspecified open wound of abdominal wall, unspecified quadrant without penetration into peritoneal cavity, subsequent encounter; I11.0 Hypertensive heart disease with heart failure; I50.9 Heart failure, unspecified; Z95.0 Presence of cardiac pacemaker; Z86.711 Personal history of pulmonary embolism; Z86.73 Personal history of transient ischemic attack (TIA), and cerebral infarction without residual deficits; Y83.8 Other surgical procedures as the cause of abnormal reaction of the patient, or of later complication, without mention of misadventure at the time of the procedure; X58.XXXD Exposure to other specified factors, subsequent encounter